=== PATIENT | female | born 1945 | race Caucasian/White ===

== ENCOUNTER 2018-06-09 12:08 | Inpatient (IN) ==
[2018-06-09] MEDS ORDERED: Piperacillin/Tazobactam 3.375 GM in Water for inj. (sterile) 20 ML 20 ML IVP ONE (12:18)
[2018-06-09] MEDS ORDERED: 0.9 % Sodium Chloride 1,000 ML IVC ONE (12:18)
[2018-06-09] MEDS ORDERED: methylPREDNISolone 125 MG/2 ML VIAL IVP ONE (12:20)
[2018-06-09] MEDS ORDERED: Ipratropium/Albuterol Neb 3 ML IH ONE (12:20)
--- NOTE | 2018-06-09 12:25 | Emergency Department Note ---
Disposition Clinical Impression: Respiratory distress, Bacteremia, Severe sepsis Pneumonia Qualifiers: Pneumonia type: due to unspecified organism Laterality: unspecified laterality Lung location: unspecified part of lung Qualified Code(s): J18.9 - Pneumonia, unspecified organism COPD (chronic obstructive pulmonary disease) Qualifiers: COPD type: unspecified COPD Qualified Code(s): J44.9 - Chronic obstructive pulmonary disease, unspecified Disposition: Admitted As Inpatient Condition: Fair Referrals: Aneta Leal MD [Primary Care Provider] - Forms: ED Satisfaction Letter Time of Disposition: 12:27 SOB HPI - General Chief Complaint: ED Shortness of Breath/Dyspnea Stated Complaint: "infection in blood" Time Seen by Provider: 06/09/18 12:17 Source: patient Mode of arrival: ambulatory Limitations: no limitations Nursing Notes Reviewed: Yes Vital Signs Reviewed: Yes - History of Present Illness 73-year-old female with history of COPD, recent diagnosis of pneumonia presents for evaluation of respiratory distress patient symptoms started approximately a week ago. Patient had fevers as well as a productive cough. Patient was evaluated in [place] and was told she had pneumonia. Patient was placed on Levaquin. Patient was instructed to return as she had positive blood cultures. Patient states he typically wears 2 L nasal cannula but has increased to 3. Patient was hypoxic with 3 L nasal cannula triage. Denies any chest pain. Denies any abdominal pain. Nausea or vomiting. Denies any history of steroid dependence. Patient does state she has a mass in her lung but is no official diagnosis of lung malignancy. - Related Data Home Medications Medication Instructions Recorded Confirmed Albuterol Sulfate [Proair 2 puff IH 1-2XD PRN 10/24/15 06/09/18 Respiclick] Fexofenadine/Pseudoephedrine 1 each PO DAILY 04/04/16 06/09/18 [Lay-D 12 Hour Tablet] Oxygen [Oxygen] 2 l IH DAILY 04/04/16 06/09/18 Aspirin 325 mg PO DAILY 10/26/16 06/09/18 Calcium Carbonate/Vitamin D3 1 each PO BID 10/26/16 06/09/18 [Calcium 500 + Vit D Caplet] [place]-3/Dha/Epa/Fish Oil [Fish Oil 1,000 mg PO DAILY 10/26/16 06/09/18 1,000 mg Softgel] Tiotropium [place] [Spiriva] 1 cap PO DAILY 10/26/16 06/09/18 Vitamin E 1,000 unit PO DAILY 10/26/16 06/09/18 Cetirizine HCl [Zyrtec] 10 mg PO DAILY 06/09/18 06/09/18 Fluticasone/Salmeterol [Advair 1 puff IH BID 06/09/18 06/09/18 500-50 Diskus] Omeprazole [PriLOSEC] 20 mg PO DAILY 06/09/18 06/09/18 Roflumilast [Daliresp] 500 mcg PO DAILY 06/09/18 06/09/18 Simvastatin [Zocor] 10 mg PO QPM 06/09/18 06/09/18 Previous Rx's Medication Instructions Recorded Levofloxacin [Levaquin] 750 mg PO DAILY #7 tablet 06/05/18 Allergies Allergy/AdvReac Type Severity Reaction Status Date / Time No Known Allergies Allergy Verified 10/26/16 11:04 All systems ED: reviewed and negative except as stated. 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 - Social History Smoking Status: Former smoker Smokeless Tobacco Status: No Alcohol use: Reports: none Drug use: Reports: none Physical Exam - General Limitations: no limitations General appearance: alert, in distress - Head Head exam: atraumatic, normocephalic, normal inspection - Eye Eye exam: Present: normal appearance, PERRL, EOMI - ENT ENT exam: normal exam, mucous membranes moist - Neck Neck exam: Present: normal inspection - Chest Chest inspection: Present: normal inspection, symmetric chest wall rise - Respiratory Respiratory exam: Present: respiratory distress, accessory muscle use, prolonged expiratory phase, other (Diffusely diminished) - Cardiovascular Cardiovascular exam: Present: regular rate, normal rhythm. Absent: systolic murmur - Abdominal Exam Abdominal exam: Present: soft, Non-Tender - Extremities Exam Extremities exam: Present: normal inspection. Absent: pedal edema - Back Exam Back exam: Present: normal inspection - Neurological Exam Neurological exam: Present: alert, oriented X3, CN II-XII intact - Skin Skin exam: Present: warm, dry, intact, normal color Course Course Narrative: Patient seen and examined. Patient does have a history of MRSA bacteremia diagnosed from [place]. Patient appears to be in moderate distress. BiPAP initially placed as the patient was tachypnea, accessory muscle use. Patient will get sepsis evaluation. Empiric antibiotics with Vanc Zosyn initiated. Disposition admission. - Reevaluation(s) Reevaluation #1: Patient's resting comfortably. Patient's BiPAP setting of 35% and 12/6. Time: 13:20 Reevaluation #2: Repeat exam shows better aeration. Patient was updated on plan of care. Family states that she would not want intubation if her breathing were to worsen. Time: 13:57 Vital Signs Temperature 97.7 F 06/09/18 12:13 Pulse Rate 113 06/09/18 12:13 Respiratory Rate 20 06/09/18 12:13 Blood Pressure 122/58 06/09/18 12:13 O2 Sat by Pulse Oximetry 66 06/09/18 12:13 Temperature 97.7 F 06/09/18 12:22 Pulse Rate 102 06/09/18 13:30 Respiratory Rate 19 06/09/18 13:30 Blood Pressure 120/64 06/09/18 13:30 O2 Sat by Pulse Oximetry 99 06/09/18 13:30 Oxygen Delivery Oxygen Delivery Bipap Shortness of Breath/Dyspnea - [facility] Narrative Medical decision making narrative: Patient presented in respiratory distress. BiPAP placed on the patient due to her tachypnea. Patient does trigger surgical criteria. Source likely in the lungs. Patient was diagnosed with bacteremia and pneumonia. Illness onset has been over the past week. Patient does have a significant leukocytosis will mail a lactate of 3.1. In the setting of elevated troponin. No ST elevation. Patient was given an aspirin to the elevated troponin. Patient did have MRSA bacteremia. Patient was started on Vanco and Zosyn in the ED. Patient's been resting comfortably on BiPAP. No signs of decompensation. Patient was given IV fluid hydration. Patient does have a leukocytosis consistent with illness described. On repeat evaluation the patient does appear to have good capillary refill. Lungs appeared to have improved after the aerosols and steroids. - Lab Data Lab results reviewed: Yes I reviewed the patient's lab results. Result diagrams: 06/09/18 12:22 06/09/18 12:22 Lab Results 06/09/18 06/09/18 06/09/18 Range/Units 12:22 12:22 12:22 WBC 32.8 H* (4.3-11.1) K/mcL RBC 3.93 (3.82-4.97) M/mcL Hgb 11.5 (11.5-15.4) g/dL Hct 37.0 (35.3-44.9) % MCV 94.1 (83.0-100.0) fL MCH 29.3 (28.0-33.3) pg MCHC 31.1 L (31.6-35.5) g/dL RDW 13.6 (11.5-14.5) % Plt Count 375 (140-400) K/mcL MPV 9.9 (9.4-12.4) fL Seg Neutrophils % 56.0 % Band Neutrophils % 38.0 H (0-4) % Monocytes % 2.0 % Metamyelocytes % 4.0 H (0) % Neutrophils # 30.8 H (1.6-8.9) K/mcL Lymphocytes # 1.0 (0.6-4.6) K/mcL Monocytes # 0.7 (0.0-1.3) K/mcL Nucleated RBCs/100 WBC 0.2 H (0) /100 WBC Platelet Estimate Normal (Normal) PT 13.9 H (9.4-12.1) Seconds INR 1.2 APTT 24.9 L (26.0-36.0) Seconds Sample Site ABG pH (7.32-7.45) pH Units ABG pCO2 (35-45) mmHg ABG pO2 (85-104) mmHg ABG HCO3 (21-27) mEq/L ABG Total CO2 (20-26) mEq/L ABG O2 Saturation (95-98) % ABG Base Excess (-2 to 3) mEq/L Avery Test O2 Delivery Device Inspired O2 (1-15=lpm [id number]=%) Sodium 136 (136-145) mEq/L Potassium 2.6 L (3.5-5.1) mEq/L Chloride 85 L (98-107) mEq/L Carbon Dioxide 43 H* (23-29) mEq/L Creatinine 0.39 L (0.60-1.20) mg/dL Est GFR ( Amer) > 60 (> 60) Est GFR (Non-Af Amer) > 60 (> 60) Glucose 112 H (70-105) mg/dL Lactic Acid (0.5-2.2) mmol/L Calcium 9.0 (8.6-10.3) mg/dL Phosphorus 2.2 L (2.7-4.5) mg/dL Magnesium 1.9 (1.6-2.6) mg/dL Total Bilirubin 0.3 (0.3-1.0) mg/dL Direct Bilirubin 0.2 (0.0-0.2) mg/dL Indirect Bilirubin 0.1 (0.0-1.2) mg/dL AST 19 (13-39) Units/L ALT 19 (7-52) Units/L Alkaline Phosphatase 119 H (34-104) Units/L Troponin I 0.09 H* (< 0.04) ng/mL Serum Total Protein 6.7 (6.4-8.9) g/dL Albumin 2.9 L (3.5-5.7) g/dL Globulin 3.8 H (2.4-3.5) g/dL Albumin/Globulin Ratio 0.8 L (1.1-2.2) 06/09/18 06/09/18 Range/Units 12:22 12:38 WBC (4.3-11.1) K/mcL RBC (3.82-4.97) M/mcL Hgb (11.5-15.4) g/dL Hct (35.3-44.9) % MCV (83.0-100.0) fL MCH (28.0-33.3) pg MCHC (31.6-35.5) g/dL RDW (11.5-14.5) % Plt Count (140-400) K/mcL MPV (9.4-12.4) fL Seg Neutrophils % % Band Neutrophils % (0-4) % Monocytes % % Metamyelocytes % (0) % Neutrophils # (1.6-8.9) K/mcL Lymphocytes # (0.6-4.6) K/mcL Monocytes # (0.0-1.3) K/mcL Nucleated RBCs/100 WBC (0) /100 WBC Platelet Estimate (Normal) PT (9.4-12.1) Seconds INR APTT (26.0-36.0) Seconds Sample Site R Radial ABG pH 7.46 H (7.32-7.45) pH Units ABG pCO2 63 H (35-45) mmHg ABG pO2 127 H (85-104) mmHg ABG HCO3 45 H (21-27) mEq/L ABG Total CO2 47 H (20-26) mEq/L ABG O2 Saturation 99 H (95-98) % ABG Base Excess 18 H (-2 to 3) mEq/L Avery Test Positive O2 Delivery Device BiPAP Inspired O2 35.0 (1-15=lpm [id number]=%) Sodium (136-145) mEq/L Potassium (3.5-5.1) mEq/L Chloride (98-107) mEq/L Carbon Dioxide (23-29) mEq/L Creatinine (0.60-1.20) mg/dL Est GFR ( Amer) (> 60) Est GFR (Non-Af Amer) (> 60) Glucose (70-105) mg/dL Lactic Acid 3.1 H (0.5-2.2) mmol/L Calcium (8.6-10.3) mg/dL Phosphorus (2.7-4.5) mg/dL Magnesium (1.6-2.6) mg/dL Total Bilirubin (0.3-1.0) mg/dL Direct Bilirubin (0.0-0.2) mg/dL Indirect Bilirubin (0.0-1.2) mg/dL AST (13-39) Units/L ALT (7-52) Units/L Alkaline Phosphatase (34-104) Units/L Troponin I (< 0.04) ng/mL Serum Total Protein (6.4-8.9) g/dL Albumin (3.5-5.7) g/dL Globulin (2.4-3.5) g/dL Albumin/Globulin Ratio (1.1-2.2) - Radiology Data Radiology results reviewed: Yes I reviewed the patient's radiology results. Chest X-Ray 06/09/18 12:18 IMPRESSION: 1. Worsening bilateral lung infiltrates, concerning for multifocal pneumonia. There is a larger cavitary infiltrate in the right midlung field. 2. Pulmonary vascular congestion. D/ / Steven Almaraz MD / Steven Almaraz MD Interpreting Provider: Steven Almaraz MD - EKG Data EKG attestation: Yes I reviewed and interpreted this EKG. EKG shows normal: Reports: sinus rhythm Rate: Reports: tachycardia Rhythm: Reports: NSR [place]/QRS: Reports: normal, RBBB Interpretation: Reports: no acute changes, nonspecific ST-T wave changes S.B.Lyn - [place] Situation: Demographics Background: Presenting Complaint Assessment: Vital Signs, Course and respsone to treatment, Patient/Family Expectation Recommendation: Barrier(s) to disposition, Recommendation based on pending studies, treatments, or consults S.B.ASagar Report Given to: Dr. Kaci Shaikh Repor Time: 14:13
[2018-06-09 12:42] LABS: ABG Base Excess 18 mEq/L (-2 to 3); ABG HCO3 45 mEq/L (21-27); ABG Oxygen Saturation 99 % (95-98); ABG PCO2 63 mmHg (35-45); ABG PH 7.46 pH Units (7.32-7.45); ABG PO2 127 mmHg (85-104); ABG TCO2 47 mEq/L (20-26)
[2018-06-09 12:47] LABS: Nucleated Red Blood Cells 0.2 /100 WBC (0)
[2018-06-09 12:49] LABS: Hemoglobin 11.5 g/dL (11.5-15.4); Mean Corpuscular HGB Conc 31.1 g/dL (31.6-35.5); Mean Corpuscular Hemoglobin 29.3 pg (28.0-33.3); Mean Corpuscular Volume 94.1 fL (83.0-100.0); Mean Platelet Volume 9.9 fL (9.4-12.4); Platelet Count 375 K/mcL (140-400); Red Blood Count 3.93 M/mcL (3.82-4.97); Red Cell Distribution Width 13.6 % (11.5-14.5)
[2018-06-09 12:55] LABS: INR 1.2; Prothrombin Time 13.9 Seconds (9.4-12.1)
[2018-06-09 12:58] LABS: Activated Partial Thrombo Time 24.9 Seconds (26.0-36.0)
[2018-06-09] MEDS ORDERED: Piperacillin/Tazobactam 3.375 GM in 0.9 % Sodium Chloride Mini Bag 100 ML IVP ONE (13:00)
[2018-06-09] MEDS ORDERED: 0.9 % Sodium Chloride 500 ML IVC ONE (13:04)
--- NOTE | 2018-06-09 13:08 | Emergency Department Note ---
Disposition Clinical Impression: Respiratory distress, Bacteremia Pneumonia Qualifiers: Pneumonia type: due to unspecified organism Laterality: unspecified laterality Lung location: unspecified part of lung Qualified Code(s): J18.9 - Pneumonia, unspecified organism COPD (chronic obstructive pulmonary disease) Qualifiers: COPD type: unspecified COPD Qualified Code(s): J44.9 - Chronic obstructive pulmonary disease, unspecified Disposition: Admitted As Inpatient Condition: Fair Forms: ED Satisfaction Letter General Adult HPI - General Chief complaint: ED Shortness of Breath/Dyspnea Stated complaint: "infection in blood" Time Seen by Provider: 06/09/18 12:17 Source: patient Mode of arrival: ambulatory Limitations: no limitations - History of Present Illness Pain Scale: 0 - Related Data Home Medications Medication Instructions Recorded Confirmed Albuterol Sulfate [Proair 2 puff IH 1-2XD PRN 10/24/15 10/26/16 Respiclick] Fluticasone/Salmeterol [Advair 2 puff IH BID PRN 10/24/15 10/26/16 100-50 Diskus] Fexofenadine/Pseudoephedrine 1 each PO DAILY 04/04/16 10/26/16 [Lay-D 12 Hour Tablet] Oxygen [Oxygen] 2 l IH DAILY 04/04/16 10/26/16 Aspirin 325 mg PO DAILY 10/26/16 10/26/16 Calcium Carbonate/Vitamin D3 1 each PO BID 10/26/16 10/26/16 [Calcium 500 + Vit D Caplet] [place]-3/Dha/Epa/Fish Oil [Fish Oil 1,000 mg PO DAILY 10/26/16 10/26/16 1,000 mg Softgel] Tiotropium [place] [Spiriva] 1 cap PO DAILY 10/26/16 10/26/16 Vitamin E 1,000 unit PO DAILY 10/26/16 10/26/16 raNITIdine HCl [Zantac] 150 mg PO HS 10/26/16 10/26/16 Previous Rx's Medication Instructions Recorded Levofloxacin [Levaquin] 750 mg PO DAILY #7 tablet 06/05/18 Allergies Allergy/AdvReac Type Severity Reaction Status Date / Time No Known Allergies Allergy Verified 10/26/16 11:04 Constitutional: Reports: fever Cardiovascular: Denies: chest pain Respiratory: Reports: cough, dyspnea, sputum production Gastrointestinal: Denies: abdominal pain, nausea, vomiting Past Medical History - Past Medical History Medical history: Reports: COPD, hypertension Surgical history: Reports: cholecystectomy, hysterectomy Psychiatric history: Reports: no psych history 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 - Social History Smoking Status: Former smoker Smokeless Tobacco Status: No Alcohol use: Reports: none Drug use: Reports: none Physical Exam - General Limitations: no limitations General appearance: alert, in distress Course Vital Signs Temperature 97.7 F 06/09/18 12:13 Pulse Rate 113 06/09/18 12:13 Respiratory Rate 20 06/09/18 12:13 Blood Pressure 122/58 06/09/18 12:13 O2 Sat by Pulse Oximetry 66 06/09/18 12:13 Temperature 97.7 F 06/09/18 12:22 Pulse Rate 108 06/09/18 12:50 Respiratory Rate 22 06/09/18 12:50 Blood Pressure 124/70 06/09/18 12:55 O2 Sat by Pulse Oximetry 99 06/09/18 12:50 Oxygen Delivery Oxygen Delivery Bipap Medical Decision Making - Lab Data Result diagrams: 06/09/18 12:22 Lab Results 06/09/18 06/09/18 06/09/18 Range/Units 12:22 12:22 12:22 WBC 32.8 H* (4.3-11.1) K/mcL RBC 3.93 (3.82-4.97) M/mcL Hgb 11.5 (11.5-15.4) g/dL Hct 37.0 (35.3-44.9) % MCV 94.1 (83.0-100.0) fL MCH 29.3 (28.0-33.3) pg MCHC 31.1 L (31.6-35.5) g/dL RDW 13.6 (11.5-14.5) % Plt Count 375 (140-400) K/mcL MPV 9.9 (9.4-12.4) fL Nucleated RBCs/100 WBC 0.2 H (0) /100 WBC PT 13.9 H (9.4-12.1) Seconds INR 1.2 APTT 24.9 L (26.0-36.0) Seconds Sample Site ABG pH (7.32-7.45) pH Units ABG pCO2 (35-45) mmHg ABG pO2 (85-104) mmHg ABG HCO3 (21-27) mEq/L ABG Total CO2 (20-26) mEq/L ABG O2 Saturation (95-98) % ABG Base Excess (-2 to 3) mEq/L Avery Test O2 Delivery Device Inspired O2 (1-15=lpm [id number]=%) Lactic Acid 3.1 H (0.5-2.2) mmol/L 06/09/18 Range/Units 12:38 WBC (4.3-11.1) K/mcL RBC (3.82-4.97) M/mcL Hgb (11.5-15.4) g/dL Hct (35.3-44.9) % MCV (83.0-100.0) fL MCH (28.0-33.3) pg MCHC (31.6-35.5) g/dL RDW (11.5-14.5) % Plt Count (140-400) K/mcL MPV (9.4-12.4) fL Nucleated RBCs/100 WBC (0) /100 WBC PT (9.4-12.1) Seconds INR APTT (26.0-36.0) Seconds Sample Site R Radial ABG pH 7.46 H (7.32-7.45) pH Units ABG pCO2 63 H (35-45) mmHg ABG pO2 127 H (85-104) mmHg ABG HCO3 45 H (21-27) mEq/L ABG Total CO2 47 H (20-26) mEq/L ABG O2 Saturation 99 H (95-98) % ABG Base Excess 18 H (-2 to 3) mEq/L Avery Test Positive O2 Delivery Device BiPAP Inspired O2 35.0 (1-15=lpm [id number]=%) Lactic Acid (0.5-2.2) mmol/L Attestation Statement - Attestation Attestation: I examined this patient and my medical decision-making was reviewed with the Resident Physician. I agree with the documented findings, disposition and treatment plan as described except to the extent set forth below. 73 year old veronica presents to the ED to the critical care bay for pneumoina and was discharged ome from ED previously with jasmyn tapia and then maria luisa yao to have come back to the ED for MRSA infection in her blood cultures. It appears that she is hypoxic and has a history of COPD and wears 2LCN continuaously and was hypoxic to 66% and we have placed her on bipap and started SEPSIS protocol with vanc/zosyn therapy with a WBC of 36 and a lactic acid of 3.1. WE will admit to medicine
[2018-06-09 13:15] LABS: Alanine Aminotransferase 19 Units/L (7-52); Albumin 2.9 g/dL (3.5-5.7); Albumin/Globulin Ratio 0.8 (1.1-2.2); Alkaline Phosphatase 119 Units/L (34-104); Aspartate Amino Transferase 19 Units/L (13-39); Bilirubin,Direct 0.2 mg/dL (0.0-0.2); Bilirubin,Indirect 0.1 mg/dL (0.0-1.2); Bilirubin,Total 0.3 mg/dL (0.3-1.0); Carbon Dioxide 43 mEq/L (23-29); Chloride 85 mEq/L (98-107); Globulin 3.8 g/dL (2.4-3.5); Glucose 112 mg/dL (70-105); Magnesium 1.9 mg/dL (1.6-2.6); Phosphorous 2.2 mg/dL (2.7-4.5); Potassium 2.6 mEq/L (3.5-5.1); Sodium 136 mEq/L (136-145); Total Protein 6.7 g/dL (6.4-8.9); Troponin I 0.09 ng/mL (< 0.04); eGFR For Non-African Americans > 60 (> 60)
[2018-06-09] MEDS ORDERED: Aspirin 325 MG TABLET PO ONE (13:19)
[2018-06-09] MEDS ORDERED: Potassium Chloride 40 MEQ, Lidocaine 1% 2 ML in D5% in Water 500 ML IVPB ONE (13:23)
[2018-06-09] MEDS ORDERED: Potassium Chloride Elixir 20 MEQ/15 ML UDC PO ONE (13:23)
[2018-06-09 13:45] LABS: Monocytes # 0.7 K/mcL (0.0-1.3); Neutrophils # 30.8 K/mcL (1.6-8.9); Platelet Estimate Normal (Normal)
[2018-06-09] MEDS: 0.9 % Sodium Chloride 1,000 ML IVC SCH (14:45)
[2018-06-09] MEDS ORDERED: Naloxone 0.4 MG/ML INJ IVP PRN (14:52)
[2018-06-09 15:45] LABS: BUN/Creatinine Ratio 23 (6-26); Blood Urea Nitrogen 9 mg/dL (8-23); Osmolality,Calculated 281 (280-300)
--- NOTE | 2018-06-09 15:52 | Internal Med History&Physical ---
Date of Encounter: 06/09/18 Time of Encounter: 14:20 Internal Medicine - H&P: HPI Chief complaint: Was asked to come to ER History of present illness: Ms. Alvares is a 73 year old female with past medical history of COPD, hypertension who was seen on 06/05/18 for shortness of breath and was diagnosed to have pneumonia based on chest x-ray and CTA and was discharged on Levaquin. Patient's blood culture were drawn at the time of each came positive for MRSA and patient was called back to ER. Patient has long-standing COPD and uses oxygen at home but does not use a BiPAP/CPAP. She continued to have difficulty breathing for the past 2-3 days. She felt febrile but did not take her temperature and felt chills. Denies any abdominal pain, bowel or urinary complaints. Denies any previous history of antibiotic use recently in the past 3-6 month. Denies having any surgeries recently. Denies any history of prosthesis. Past Med Surg Social Fam HX - Past Medical History Medical history: COPD, hypertension Additional medical history: mass in right lung, hyponatremia, hypokalemia, RLL PN, vitamin D deficiency, OA, carpal tunnel, oxygen dependent Psychiatric history: no psych history - Past Surgical History Surgical History: cholecystectomy, hysterectomy Additional surgical history: BLADDER TUCK, HERNIA REPAIR, left arm - Social History Smoking Status: Former smoker Smokeless Tobacco Status: No Alcohol use: none Drug use: none - Family History Father Hx Family Respiratory Disorders: No Internal Medicine - H&P: Meds Albuterol Sulfate [Proair Respiclick] 2 puff IH 1-2XD PRN 10/24/15 [History] Fexofenadine/Pseudoephedrine [Lay-D 12 Hour Tablet] 1 each PO DAILY [History] Oxygen [Oxygen] 2 l IH DAILY 04/04/16 [History] Aspirin 325 mg PO DAILY 10/26/16 [History] Calcium Carbonate/Vitamin D3 [Calcium 500 + Vit D Caplet] 1 each PO BID [History] [place]-3/Dha/Epa/Fish Oil [Fish Oil 1,000 mg Softgel] 1,000 mg PO DAILY 10/26/16 [History] Tiotropium [place] [Spiriva] 1 cap PO DAILY 10/26/16 [History] Vitamin E 1,000 unit PO DAILY 10/26/16 [History] Levofloxacin [Levaquin] 750 mg PO DAILY #7 tablet 06/05/18 [Rx] Cetirizine HCl [Zyrtec] 10 mg PO DAILY 06/09/18 [History] Fluticasone/Salmeterol [Advair 500-50 Diskus] 1 puff IH BID 06/09/18 [History] Omeprazole [PriLOSEC] 20 mg PO DAILY 06/09/18 [History] Roflumilast [Daliresp] 500 mcg PO DAILY 06/09/18 [History] Simvastatin [Zocor] 10 mg PO QPM 06/09/18 [History] 3 Allergy/AdvReac Type Severity Reaction Status Date / Time No Known Allergies Allergy Verified 10/26/16 11:04 All Systems PM: A 10-system review of systems was performed and is negative for pertinent findings except as documented above in the HPI. - Constitutional Vitals: Temp Pulse Resp BP Pulse Ox 97.7 F 102 25 118/72 99 06/09/18 12:22 06/09/18 15:04 06/09/18 15:04 06/09/18 15:04 06/09/18 15:04 General appearance: Present: mild distress, A&O X 3 Exam: Const: Vital signs listed above. In mild acute distress. Alert and oriented x 3. No mood disorders noted, calm affect. On bipap, alert and awake. Eyes: Sclera white, conjunctiva clear, lids are without lag. PERRLA. Pupils and irises are equal and round without defect. ENT: TMs intact and clear, normal canals, grossly normal hearing. Oropharanx clear and moist without erythema. Gums pink, good dentition. Lymph/Neck: No masses, thyromegaly, or abnormal cervical notes. No bruit. Tracheal midline. Cardio: RRR, tachycardic, Normal S1, S2 w/o murmurs, rubs or gallops. Skin warm and dry. No peripheral edema. Respiratory: On bipap, air entry bilaterally. occasional rhonchi bilaterally. Difficult auscultation given on bipap. non-tender to palpitation. Musculo: No deformity or scoliosis noted. No endy gait disturbance noted. No cyanosis or edema. Pulses normal in all 4 extremities. No atrophy or abnormal movements. Appropriate muscle strength bilaterally. Neurologic: No focal deficits, cranial nerves II-XII grossly intact with normal sensation, reflexes, coordination, muscle strength and tone. GI/Abdomen: Soft, non tender, non distended, no hepatosplemomegaly, normal bowel sounds, no masses noted. Skin: No rashes or ulcers noted Internal Med - H&P Results - Labs CBC & Chem 7: 06/09/18 12:22 06/09/18 12:22 - ABG Interpretation Interpretation: respiratory alkalosis, metabolic acidosis - Assessment and plan (1) Sepsis Current Visit: Yes Status: Acute Assessment and plan: Sepsis likely secondary to pneumonia - CXR with cavitory lesion. MRSA bacteremia. Lactate 3.1. - s/p 1.5 L IVF and Vancomycin and Zosyn. solumedrol 125 and 40 meq of potassium. - Continue with IVF NS at 125 cc, Vancomycin, zosyn, f/u blood cultures. f/u lactate. - ID consulted. Qualifiers: Qualified Code(s): A41.02 - Sepsis due to Methicillin resistant Staphylococcus aureus (2) Bacteremia Current Visit: Yes Status: Acute Assessment and plan: as above (3) COPD (chronic obstructive pulmonary disease) Current Visit: Yes Status: Acute Assessment and plan: - continue duonebs, symbicort and spiriva - C/w Bipap. Qualifiers: COPD type: unspecified COPD Qualified Code(s): J44.9 - Chronic obstructive pulmonary disease, unspecified (4) Pneumonia Current Visit: Yes Status: Acute Assessment and plan: as above Qualifiers: Pneumonia type: due to unspecified organism Laterality: unspecified laterality Lung location: unspecified part of lung Qualified Code(s): J18.9 - Pneumonia, unspecified organism (5) Respiratory distress Current Visit: Yes Status: Acute Assessment and plan: as above (6) Elevated troponin Current Visit: Yes Status: Acute Assessment and plan: - likely from demand - Will trend until downtrending. (7) Hypokalemia Current Visit: Yes Status: Acute Assessment and plan: - s/p 40 meq IV potassium - will give 80 meq oral. - Monitor for now. - Time Spent With Patient Total time spent is greater than 50% in coordination of care (as documented) at patient's floor/unit and/or counseling patient:
[2018-06-09] MEDS ORDERED: Ipratropium/Albuterol Neb 3 ML IH SCH (16:00)
[2018-06-09 19:59] LABS: ABG Base Excess 11 mEq/L (-2 to 3); ABG HCO3 39 mEq/L (21-27); ABG Oxygen Saturation 95 % (95-98); ABG PCO2 64 mmHg (35-45); ABG PH 7.39 pH Units (7.32-7.45); ABG PO2 81 mmHg (85-104); ABG TCO2 41 mEq/L (20-26)
[2018-06-09] MEDS: Acetaminophen 325 MG TABLET PO PRN (20:14)
[2018-06-09] MEDS: Piperacillin/Tazobactam 3.375 GM in 0.9 % Sodium Chloride Mini Bag 100 ML IVPB SCH (20:18)
[2018-06-09] MEDS: Ipratropium/Albuterol Neb 3 ML IH SCH (20:30)
[2018-06-09] MEDS ORDERED: Budesonide/Formoterol 160/4.5 1 PUFF INH IH SCH (22:00)
[2018-06-10] MEDS: 0.9 % Sodium Chloride 1,000 ML IVC SCH ×4 (02:45→21:17)
[2018-06-10] MEDS: Acetaminophen 325 MG TABLET PO PRN ×2 (02:51→09:24)
--- NOTE | 2018-06-10 03:06 | Event Note ---
Date of Encounter: 06/10/18 Time of Encounter: 03:02 I was paged to beside by RN when the tele showed concern for A fib. 73 y/o f hx COPD admitted for PNA on IV abx and fluids. Patient was shorts of breath with 92 % on 6L and HR 120s . She denies chest pain, palpitations, dizziness or lightheaded. Admits to past episode of lightheaded and pedal edema. Cardiac was irregularly, irregular and trace pedal edema Lungs, wheeze in left lower lobe. I ordered and signed an stat EKG but due to system failure it was not properly record in system. We preceded with EKG on my order despite tech reminding me of protocol. EKG showed Afib with RVR BP 105/64 Plan : MOHSEN VASC2 score of 3 -continued IVF at 125 - gave lopressor 5mg ; HR 85-105 with SBP 107 - IVF bolus 500 ml- HR remained in 90s to 110 - ABG at 5 am pH 7.3, CO2 77.7 HCO3 38.7 - continued BiPAP - another ABG due at 7am- still waiting on results - consider a second dose of Lopressor
[2018-06-10] MEDS ORDERED: *HR* Metoprolol 5 MG/5 ML VIAL IVP ONE (03:20)
[2018-06-10] MEDS ORDERED: *HR* Metoprolol 5 MG/5 ML VIAL IVP SCH (03:30)
[2018-06-10] MEDS ORDERED: 0.9 % Sodium Chloride 500 ML IVC ONE (03:34)
[2018-06-10] MEDS: Ipratropium/Albuterol Neb 3 ML IH SCH ×4 (03:39→22:16)
[2018-06-10 03:45] LABS: Lymphocytes % 2.2 %; Monocytes % 1.5 %; Red Cell Distribution Width 14.1 % (11.5-14.5)
[2018-06-10 03:46] LABS: Basophils # 0.2 K/mcL (0.0-0.2); Basophils % 0.6 %; Hematocrit 32.4 % (35.3-44.9); Immature Granulocytes % 3.5 % (0-4); Lymphocytes # 0.7 K/mcL (0.6-4.6); Mean Corpuscular HGB Conc 30.9 g/dL (31.6-35.5); Mean Corpuscular Hemoglobin 28.7 pg (28.0-33.3); Mean Corpuscular Volume 93.1 fL (83.0-100.0); Mean Platelet Volume 9.8 fL (9.4-12.4); Monocytes # 0.5 K/mcL (0.0-1.3); Neutrophils # 29.3 K/mcL (1.6-8.9); Nucleated Red Blood Cells 0.2 /100 WBC (0); Platelet Count 348 K/mcL (140-400); Red Blood Count 3.48 M/mcL (3.82-4.97); Segmented Neutrophils % 92.2 %
[2018-06-10 04:09] LABS: Troponin I 0.04 ng/mL (< 0.04)
[2018-06-10 04:10] LABS: BUN/Creatinine Ratio 31 (6-26); Blood Urea Nitrogen 9 mg/dL (8-23); Calcium 8.2 mg/dL (8.6-10.3); Carbon Dioxide 35 mEq/L (23-29); Chloride 100 mEq/L (98-107); Glucose 160 mg/dL (70-105); Osmolality,Calculated 292 (280-300); Potassium 4.1 mEq/L (3.5-5.1); Sodium 140 mEq/L (136-145); eGFR For Non-African Americans > 60 (> 60)
[2018-06-10 04:24] LABS: Platelet Estimate Normal (Normal)
[2018-06-10 04:25] LABS: Hypochromasia Present (Not Present)
[2018-06-10 04:48] LABS: ABG Base Excess 10 mEq/L (-2 to 3); ABG HCO3 39 mEq/L (21-27); ABG Oxygen Saturation 98 % (95-98); ABG PCO2 78 mmHg (35-45); ABG PH 7.31 pH Units (7.32-7.45); ABG PO2 125 mmHg (85-104); ABG TCO2 41 mEq/L (20-26)
[2018-06-10] MEDS ORDERED: *HR* Enoxaparin 40 MG/0.4 ML SYRINGE SQ SCH (06:00)
[2018-06-10 06:45] LABS: Thyroid Stimulating Hormone 0.35 mcIU/mL (0.340-5.600)
[2018-06-10] MEDS ORDERED: (Roflumilast [Daliresp] 500 MCG) PO SCH (09:00)
[2018-06-10] MEDS: Loratadine 10 MG TABLET PO SCH ×2 (09:08→09:09)
[2018-06-10] MEDS: Cholecalciferol (D-3) 1,000 UNIT TABLET PO SCH (09:09)
[2018-06-10] MEDS: Piperacillin/Tazobactam 3.375 GM in 0.9 % Sodium Chloride Mini Bag 100 ML IVPB SCH ×2 (09:12→17:53)
[2018-06-10] MEDS ORDERED: Tiotropium 18 MCG inhalation IH SCH (10:00)
[2018-06-10] MEDS: Budesonide/Formoterol 160/4.5 1 PUFF INH IH SCH ×2 (10:19→22:16)
[2018-06-10] MEDS ORDERED: *HR* Heparin 5,000 UNIT/ML VIAL IVP PRN ×4 (11:57→13:55)
[2018-06-10] MEDS ORDERED: *HR* Heparin 5,000 UNIT/ML VIAL IVP ONE ×2 (11:57→13:55)
[2018-06-10] MEDS ORDERED: Heparin 25,000 UNIT/500 ML D5W 25,000 UNIT/500 ML BAG IVC SCH (12:00)
--- NOTE | 2018-06-10 12:02 | Internal Med Progress Note ---
Hospitalist Progress Note - Encounter Date of Encounter: 06/10/18 Time of Encounter: 12:00 - Subjective Interval History: Patient seen and examined at bedside. Overnight the patient developed atrial fibrillation with rapid ventricular response. Patient was also put on BiPAP briefly due to respiratory distress. Patient states that she has never had atrial fibrillation. The patient states that she was very confused overnight however feels much better today. Patient denies any confusion currently. Patient admits to shortness of breath with productive cough however she states this is improving. Patient denies any chest pain, nausea, vomiting, diarrhea. Patient states that she has never had any major GI bleeding or any bleeding that she is aware of. Patient does admit to long-standing history of heartburn and now states that she is having difficulty swallowing solids. I discussed atrial fibrillation with the patient and after explaining anticoagulation necessity the patient agrees to starting anticoagulation for now and will check pricing of xarelto. - Exam Vitals: Temp Pulse Resp BP Pulse Ox 99.0 F 99 18 123/75 96 06/10/18 07:54 06/10/18 07:54 06/10/18 07:54 06/10/18 07:54 06/10/18 09:00 Exam: Constitutional: No acute distress, Alert Psych: AAO x 3 HEENT: NCAT, EOMI Neck: supple, no JVD Cardio: regular rate and rhythm, tachycardic Resp: coarse bs throughtout with occasional rhonchi RLL Abd: soft, non tender/non distended, positive bowel sounds, no gaurding/reboud/ ridgitity Extremities: no clubbing/cyanosis/edema appreciated Neuro: no focal deficits appreciated - Assessment and Plan (1) Acute and chronic respiratory failure with hypoxia Current Visit: Yes Status: Acute Assessment and Plan: Patient has acute on chronic respiratory failure with hypoxia and hypercapnia -Required BiPAP overnight now on high flow nasal cannula -Mentation improved -Likely secondary to pneumonia -Maintain pulse ox symmetry between 88-92% -BiPAP when necessary -ABG is noted from overnight; latest ABG with increased carbon dioxide however patient now with improved mentation and improved respiratory status; will not repeat currently unless clinical situation indicates (2) Bacteremia Current Visit: Yes Status: Acute Assessment and Plan: -MRSA in blood culture on 06/05 -repeat cultures neagative to date -echo pending -on vanco/zosyn -ID consulted (3) Sepsis Current Visit: Yes Status: Acute Assessment and Plan: Severe sepsis likely secondary to pneumonia with cardiac and respiratory end organ damage - CXR with cavitory lesion. - MRSA bacteremia. - Lactate 3.1 on admission; now normal - s/p 1.5 L IVF and Vancomycin and Zosyn. solumedrol 125 and 40 meq of potassium. - Continue with IVF NS at 125 cc, Vancomycin, zosyn, - f/u blood cultures - ID consulted - obtain sputum sample -repeat ct chest (4) Pneumonia Current Visit: Yes Status: Acute Assessment and Plan: as above (5) COPD (chronic obstructive pulmonary disease) Current Visit: Yes Status: Acute Assessment and Plan: - continue duonebs, symbicort and spiriva - C/w Bipap prn (6) Elevated troponin Current Visit: Yes Status: Acute Assessment and Plan: - likely from demand - downtrending (7) Hypokalemia Current Visit: Yes Status: Acute Assessment and Plan: - s/p 40 meq IV potassium - will give 80 meq oral. - Monitor for now. (8) New onset a-fib Current Visit: Yes Status: Acute Assessment and Plan: Patient with new onset A. fib with RVR overnight -Currently in sinus rhythm with tachycardia secondary to sepsis -Patient given IV Lopressor overnight -Chadsvasc of 2 -Discussed anticoagulation with patient and is agreeable -We will start heparin drip -We will consult cardiology for evaluation of need of ischemic workup -We will check pricing of xarelto -Start Lopressor 25 twice a day (9) Dysphagia Current Visit: Yes Status: Acute Assessment and Plan: -pt reports dysphasia with solids -consult GI -on ppi DVT Prophylaxis: hep gtt - Summary of Assessment and Plan Summary of Assessment and Plan: Patient improving but remains very high risk for complications and deterioration -Repeat CT of the chest -Consult ID for evaluation of extensive multifocal pneumonia and MRSA bacteremia -Consult GI for dysphagia with GERD -Consult cardiology for new onset A. fib with RVR - Time Spent with Patient Total time spent is greater than 50% in coordination of care (as documented) at patient's floor/unit and/or counseling patient: Greater than 35 minutes Plan of Care Discussed with: patient Internal Medicine: Result - Labs CBC & Chem 7: 06/10/18 03:28 06/10/18 03:28 Labs: Short CBC 06/10/18 Range/Units 03:28 WBC 31.8 H* (4.3-11.1) K/mcL Hgb 10.0 L D (11.5-15.4) g/dL Hct 32.4 L (35.3-44.9) % Plt Count 348 (140-400) K/mcL Neutrophils # 29.3 H (1.6-8.9) K/mcL BMP 06/10/18 03:28 Sodium 140 Potassium 4.1 D Chloride 100 Carbon Dioxide 35 H BUN 9 Creatinine 0.29 L Glucose 160 H Calcium 8.2 L Cardiac Enzymes 06/09/18 06/10/18 06/10/18 Range/Units 18:50 03:28 09:57 Troponin I 0.07 H* 0.04 H* 0.05 H* (< 0.04) ng/mL - ABG Interpretation ABG results: ABG ABG pH 7.31 pH Units (7.32-7.45) L 06/10/18 04:29 ABG pCO2 78 mmHg (35-45) H* 06/10/18 04:29 ABG pO2 125 mmHg (85-104) H 06/10/18 04:29 ABG O2 Saturation 98 % (95-98) 06/10/18 04:29 PT/INR, D-dimer PT 13.9 Seconds (9.4-12.1) H 06/09/18 12:22 Consult Discharge Plan - Plan Referrals: Aneta Leal MD [Primary Care Provider] - (3) Sepsis Qualifiers: Sepsis type: methicillin resistant Staphylococcus aureus Qualified Code(s): A41.02 - Sepsis due to Methicillin resistant Staphylococcus aureus (4) Pneumonia Qualifiers: Pneumonia type: due to unspecified organism Laterality: unspecified laterality Lung location: unspecified part of lung Qualified Code(s): J18.9 - Pneumonia, unspecified organism (5) COPD (chronic obstructive pulmonary disease) Qualifiers: COPD type: unspecified COPD Qualified Code(s): J44.9 - Chronic obstructive pulmonary disease, unspecified (9) Dysphagia Qualifiers: Dysphagia type: unspecified Qualified Code(s): R13.10 - Dysphagia, unspecified
[2018-06-10 12:55] LABS: Mean Platelet Volume 9.6 fL (9.4-12.4)
[2018-06-10 12:56] LABS: Hematocrit 33.5 % (35.3-44.9); Hemoglobin 10.1 g/dL (11.5-15.4); Mean Corpuscular HGB Conc 30.1 g/dL (31.6-35.5); Mean Corpuscular Hemoglobin 28.6 pg (28.0-33.3); Mean Corpuscular Volume 94.9 fL (83.0-100.0); Platelet Count 398 K/mcL (140-400); Red Blood Count 3.53 M/mcL (3.82-4.97); Red Cell Distribution Width 14.5 % (11.5-14.5)
[2018-06-10 13:02] LABS: Heparin anti-factor XA UFH 0.14 IU/mL (0.30-0.70); INR 1.1; Prothrombin Time 12.1 Seconds (9.4-12.1)
--- NOTE | 2018-06-10 13:51 | Infectious Disease Consult ---
Date of Encounter: 06/10/18 Time of Encounter: 13:43 Assessment and Plan (1) Severe sepsis Status: Acute Assessment and plan: The patient had 2 sepsis criteria plus lactic acidosis on admission. Likely secondary to bacteremia and pneumonia. Clinically improved, the white blood cell count worse today-likely secondary to recent steroid administration. Continues to have tachycardia. Afebrile since admission. Blood cultures obtained 06/09/18 are pending 1 set. (2) Bacteremia Status: Acute Assessment and plan: Causative organism: MRSA. Source: Unclear, possibly pneumonia, although less likely. Blood cultures obtained set was positive. Repeat blood culture obtained set is pending. No endocarditis stigmata noted on exam. Complicated due to the presence of hardware in the right upper extremity. The patient has 2 minor modified [place] criteria. Repeat blood cultures 2 sets now. Check rheumatoid factor. Transthoracic echocardiogram. The patient would likely benefit from a HARIS prior to discharge. Continue vancomycin IV. Pharmacy to dose. Vanc trough approximately 15. Duration of treatment depends on the clinical picture. Monitor renal function and for drug toxicity and dose adjust antibiotics. (3) Cavitary lesion of lung Status: Acute Assessment and plan: Location: Right middle lung field. Etiology unclear: Septic emboli versus infectious versus malignancy versus other. Chest x-ray completed 06/09/18 showed a large cavitary infiltrate in the right midlung. No history of TB exposure. The patient is a former smokers, so malignancy is on the differential. Recommend pulmonology to evaluate. The patient would likely benefit from a bronchoscopy. Continue vancomycin IV. Pharmacy to dose. Goal trough approximately 15. Continue Zosyn 3.375 g IV every 8 hours. Duration of treatment depends on the clinical picture. Monitor renal function and for drug toxicity and does adjust antibiotics. (4) Pneumonia Status: Acute Assessment and plan: Location: Bilateral. Causative organism: Unclear. Possibly MRSA, but less likely given the patient' s lack of healthcare exposure. CTA chest completed 06/05/18 showed airspace consolidation in the right lower lobe , likely related to pneumonia as well as a masslike consolidation in the right middle lobe, likely related to pneumonia. Chest x-ray completed 06/09/18 showed worsening bilateral lung infiltrates, concerning for multifocal pneumonia. Repeat CT of the chest pending completion later today. Since sputum for culture if the patient is able to provide an adequate specimen. Check strep pneumococcal and legionella urinary antigens. The patient states that she does sometimes choke when she eats, so aspiration is also a possibility. Recommend speech therapy to evaluate. Continue vancomycin and Zosyn for now. Duration of treatment depends on the clinical picture. Monitor renal function for nephrotoxicity. Qualifiers: Pneumonia type: due to unspecified organism Laterality: unspecified laterality Lung location: unspecified part of lung Qualified Code(s): J18.9 - Pneumonia, unspecified organism (5) Acute and chronic respiratory failure with hypoxia Status: Acute Assessment and plan: Likely secondary to pneumonia and possible cavitary lung lesion. Was noted to be hypoxic with SPO2 of 66% on arrival to the emergency department. Required BiPAP for short period of time, but is currently on high flow nasal cannula. Continue management per the primary and pulmonary teams. (6) Elevated troponin Status: Acute Assessment and plan: Likely demand ischemia from sepsis. Continue to trend. Further workup and management per the primary team. (7) Hypokalemia Status: Resolved Assessment and plan: Likely secondary to poor by mouth intake. Resolved. (8) New onset a-fib Status: Acute Assessment and plan: Likely secondary to sepsis. Consider cardiology consult. (9) Dysphagia Status: Acute Assessment and plan: Etiology unclear. Recommend speech consult to assist for aspiration. Recommend GI to evaluate. Qualifiers: Dysphagia type: unspecified Qualified Code(s): R13.10 - Dysphagia, unspecified (10) COPD (chronic obstructive pulmonary disease) Status: Chronic Qualifiers: COPD type: COPD with acute exacerbation Qualified Code(s): J44.1 - Chronic obstructive pulmonary disease with (acute) exacerbation Infectious Disease HPI - Data of Consult Patient: new to practice Consult date: 06/10/18 Requesting Physician: Declan Clemons MD Primary Care Provider: Aneta Leal MD - Consult Narrative Reason for consult: MRSA bacteremia History of present illness: Ms. Alvares is a 73 year old female with a past medical history of O2-dependent COPD typically requiring O2 at 2LPM per nasal cannula, remote history of smoking , and remote history of ORIF in the [place] about 60 years ago. The patient was admitted to the hospital 06/09/18 for MRSA bacteremia and PNA. We are consulted for further recommendations for PNA and MRSA bacteremia. Briefly, the patient is a 73 year old female with a past medical history as stated above. The patient presented to the ER at the direction of her PCP for bacteremia. The patient had onset of DIPESH with cough and subjective fevers about 10 days ago. She began having hemoptysis last Saturday and was evaluated at [facility] ER on 06/05/18. She had a CTA of the chest that was negative for pulmonary embolism, but did show airspace consolidation in the right lower lobe, likely related to pneumonia. It also showed a 2.6 cm masslike consolidation in the right upper lobe, mildly extending through the marked right minor fissure, likely related to pneumonia, but neoplasm cannot be excluded. There is also noted to be a 5 x 7 mm lung nodule at the left lung apex. She was given a prescription for oral Levaquin and was advised to follow-up with her primary care doctor, which she did on Saturday. On Saturday, she was contacted by the primary care office and advised come to the ER because her blood culture had come back positive for MRSA. Upon arrival to the ER, the patient was tachycardic and hypoxic with an SPO2 of 66% on 2 L nasal cannula. Laboratory studies revealed a white blood cell count of 32,000 with 38% bands. She had lactic acidosis and a positive troponin. Blood cultures were obtained 1 set. She was given Vanco and Zosyn and placed on BiPAP. She had a chest x-ray that showed worsening bilateral infiltrates consistent with multifocal pneumonia and a large cavitary infiltrate in the right midlung as well as pulmonary vascular congestion. She was started on IV antibiotics and admitted to the hospital for further evaluation. Since admission, the patient did go into A. fib RVR overnight. She continues to have tachycardia and some tachypnea. Her troponin has remained elevated. TSH was normal. She had a transthoracic echo that is pending. She is also scheduled get a CT of the chest later today. Her white blood cell count is up to 37,000 with neutrophilic predominance, no bands. Currently, she is on Vanco and Zosyn. We have been asked to evaluate and make further recommendations. During my exam today, the patient endorses the history as stated above. She reports subjective fevers, but denies any chills or rigors. She denies any headache or neck pain. She denies any congestion, earache, or sore throat. She denies any pain in her chest, but does report worsening shortness of breath and a cough productive of dark brown and bloody sputum. She denies any nausea or vomiting, but does report a poor appetite. She does report adequate fluid intake. She denies any abdominal pain, diarrhea, or urinary complaints. She does report mid thoracic back pain that is new for her. She reports that she has generalized aches and pains, but nothing out of ordinary. She does report that she fell yesterday injuring her right foot and ankle, and states they are still sore today. She denies any oral thrush or new skin lesions. She does have hardware in the right upper extremity secondary to a remote history of an ORIF when she was a child. She denies any pacemakers or joint hardware. She does report some dysphagia that is recently new in onset and states she does sometimes choke on her food. The patient lives at home alone. She is retired. She denies any travel outside the [facility]. She is a former smoker and quit smoking about 10-15 years ago. She denies any alcohol or illicit drug use. She denies any known exposure to tuberculosis. She denies ever being incarcerated in the . She denies any chronic infectious diseases. She denies any pet or animal exposures. She denies any recent healthcare exposure except for being in the ER last week. CC: Declan Clemons MD Past Med Surg Social Fam HX - Past Medical History Attestation: Yes The following information was validated with the patient. Source: patient, old records reviewed, nursing notes reviewed Medical history: COPD, hypertension Additional medical history: mass in right lung, hyponatremia, hypokalemia, RLL PN, vitamin D deficiency, OA, carpal tunnel, oxygen dependent Psychiatric history: no psych history - Past Surgical History Surgical History: cholecystectomy, hysterectomy Additional surgical history: BLADDER TUCK, HERNIA REPAIR, left arm - Social History Smoking Status: Former smoker Smokeless Tobacco Status: No Alcohol use: none Drug use: none Occupational status: retired Current living situation: Home - Independent Activity Level: Independent ambulation Recent Out of Country Travel Within the Last 8 Weeks: No Exposure or Possible Exposure to Illness During Travel: No - Family History Father Hx Family Respiratory Disorders: No Infectious Disease-CN:Meds Albuterol Sulfate [Proair Respiclick] 2 puff IH 1-2XD PRN 10/24/15 [History] Fexofenadine/Pseudoephedrine [Lay-D 12 Hour Tablet] 1 each PO DAILY [History] Oxygen [Oxygen] 2 l IH DAILY 04/04/16 [History] Aspirin 325 mg PO DAILY 10/26/16 [History] Calcium Carbonate/Vitamin D3 [Calcium 500 + Vit D Caplet] 1 each PO BID [History] [place]-3/Dha/Epa/Fish Oil [Fish Oil 1,000 mg Softgel] 1,000 mg PO DAILY 10/26/16 [History] Tiotropium [place] [Spiriva] 1 cap PO DAILY 10/26/16 [History] Vitamin E 1,000 unit PO DAILY 10/26/16 [History] Levofloxacin [Levaquin] 750 mg PO DAILY #7 tablet 06/05/18 [Rx] Cetirizine HCl [Zyrtec] 10 mg PO DAILY 06/09/18 [History] Fluticasone/Salmeterol [Advair 500-50 Diskus] 1 puff IH BID 06/09/18 [History] Omeprazole [PriLOSEC] 20 mg PO DAILY 06/09/18 [History] Roflumilast [Daliresp] 500 mcg PO DAILY 06/09/18 [History] Simvastatin [Zocor] 10 mg PO QPM 06/09/18 [History] Rivaroxaban [Xarelto] 20 mg PO DAILY 30 Days #30 tablet 06/11/18 [Rx] 3 Allergy/AdvReac Type Severity Reaction Status Date / Time No Known Allergies Allergy Verified 10/26/16 11:04 All systems: reviewed and no additional remarkable complaints except as stated Exam - Constitutional Vitals: Temp Pulse Resp BP Pulse Ox 97.6 F 102 15 104/65 99 06/10/18 12:00 06/10/18 12:00 06/10/18 12:00 06/10/18 12:00 06/10/18 12:00 General appearance: average body habitus, cooperative, no acute distress - Head Head exam: Present: atraumatic, normal inspection, normocephalic - Eye Eye exam: Present: EOMI, normal appearance, PERRL Pupils: Present: normal accommodation Additional comments: No subconjunctival hemorrhage noted. - ENT ENT exam: Present: mucous membranes moist - Neck Neck exam: Present: normal inspection - Respiratory Respiratory exam: Present: decreased breath sounds (Throughout). Absent: rales , respiratory distress, rhonchi, wheezes - Cardiovascular Cardiovascular exam: Present: irregular rhythm, +S1, +S2, tachycardia - GI/Abdominal GI/Abdominal exam: Present: normal bowel sounds, soft. Absent: distended, tenderness - Extremities Exam Extremities exam: Present: normal inspection. Absent: joint swelling, pedal edema - Back Exam Back exam: Present: normal inspection. Absent: paraspinal tenderness, vertebral tenderness - Neurological Exam Neurological exam: Present: alert, oriented X3, no focal deficits - Psychiatric Psychiatric exam: Present: normal affect, normal mood - Skin Skin exam: Present: dry, intact, normal color, warm Additional comments: No endocarditis stigmata noted. Infectious Disease CN: Results - Labs CBC & Chem 7: 06/11/18 05:24 06/11/18 05:24 Consult Discharge Plan - Plan Referrals: Aneta Leal MD [Primary Care Provider] - Prescriptions: Rivaroxaban [Xarelto] 20 mg PO DAILY 30 Days #30 tablet - Attending Attestation I examined this patient and my medical decision-making was reviewed with the Resident Physician. I agree with the documented findings, disposition and treatment plan as described except to the extent set forth below. This is an addendum to original report dictated by Macarena Gudino CLIENT SERVICE ADMINISTRATOR please refer to Macarena's note for full detail. Patient is 73-year-old woman with O2 dependent COPD with remote history of smoking presented to the hospital with pneumonia and MRSA bacteremia. Patient had a CT of the chest done which shows cavitary lesion with what looks like an abscess. I did speak with the patient at length and I asked her QUESTIONS to see if she had TB exposure. 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 She has never traveled overseas. At this point I think this is pulmonary abscess/pneumonia due to the same organism that is in the blood. For now we will treat this with IV vancomycin. We will check labs and urine antigens. We will probably de-escalate to only vancomycin and stop the Zosyn shortly Await pulmonary recommendations Monitor labs and for drug toxicity
--- NOTE | 2018-06-10 14:12 | Cardiology Consult Note ---
Addendum entered and electronically signed by Jonathan Carmen CNP 06/10/18 14:36 : Patient noted to gain 10 lbs since admit. BLE edema and distended abdomen noted. Continues to have SOB. TTE pending. WIll give lasix IV x 1. Original Note: <Jonathan Carmen - Last Filed: 06/10/18 14:10> Date of Encounter: 06/10/18 Time of Encounter: 14:00 Assessment and Plan (1) New onset a-fib Current Visit: Yes Status: Acute Atrial fibrillation with RVR the setting of PNA and bacteremia. EKG shows atrial fibrillation with RVR, HR 133. HR 105 on my exam. C/o palpitations for the last 5 years. HR improved. Lopressor ordered but not given yet. Increase as needed. TTE pending. Heparin gtt ordered. CHADS VASc 2 for HTN and female. AC with coumadin or NOAC recommended. Noted hospitalist torres checking xarelto. Patient agreeable pending echo. (2) Elevated troponin Current Visit: Yes Status: Acute Mild troponin elevation 0.09, 0.07, 0.04, 0.05. Demand ischemia in the setting of sepsis, afib with RVR. TTE pending. States stress test two years ago that was negative. Denies chest pain. Discussion w patient/family: The assessment and plan as outlined above was discussed with the patient and/or family members who expressed understanding and agreement. All questions were answered. Thank you for involving us in the care of your patient. Please call with any questions. History of Present Illness Consult date: 06/10/18 Requesting physician: Addison Rosas Consult reason: Atrial fibrillation Chief complaint: SOB for three days. History of present illness: Ms. Alvares is a 73 year old female with past medical history of HTN and COPD on home O2 who was diagnosed with PNA 06/05/[address] She was sent home on antibiotics. Blood culture showed MRSA bacteremia and she was called back to the hospital. Last night she developed atrial fibrillation with RVR. She was given IV lopressor. Cardiology consulted for further evaluation. She c/o palpitations for several years. Denies chest pain. Past Med Surg Social Fam HX - Past Medical History Medical history: COPD, hypertension Additional medical history: mass in right lung, hyponatremia, hypokalemia, RLL PN, vitamin D deficiency, OA, carpal tunnel, oxygen dependent Psychiatric history: no psych history - Past Surgical History Surgical History: cholecystectomy, hysterectomy Additional surgical history: BLADDER TUCK, HERNIA REPAIR, left arm - Social History Smoking Status: Former smoker Smokeless Tobacco Status: No Alcohol use: none Drug use: none - Family History Father Hx Family Respiratory Disorders: No Medications and Allergies Albuterol Sulfate [Proair Respiclick] 2 puff IH 1-2XD PRN 10/24/15 [History] Fexofenadine/Pseudoephedrine [Lay-D 12 Hour Tablet] 1 each PO DAILY [History] Oxygen [Oxygen] 2 l IH DAILY 04/04/16 [History] Calcium Carbonate/Vitamin D3 [Calcium 500 + Vit D Caplet] 1 each PO BID [History] [place]-3/Dha/Epa/Fish Oil [Fish Oil 1,000 mg Softgel] 1,000 mg PO DAILY 10/26/16 [History] RX: Aspirin 325 mg PO DAILY 10/26/16 [History] RX: Vitamin E 1,000 unit PO DAILY 10/26/16 [History] Tiotropium [place] [Spiriva] 1 cap PO DAILY 10/26/16 [History] Levofloxacin [Levaquin] 750 mg PO DAILY #7 tablet 06/05/18 [Rx] Cetirizine HCl [Zyrtec] 10 mg PO DAILY 06/09/18 [History] Fluticasone/Salmeterol [Advair 500-50 Diskus] 1 puff IH BID 06/09/18 [History] Omeprazole [PriLOSEC] 20 mg PO DAILY 06/09/18 [History] Roflumilast [Daliresp] 500 mcg PO DAILY 06/09/18 [History] Simvastatin [Zocor] 10 mg PO QPM 06/09/18 [History] 3 Allergy/AdvReac Type Severity Reaction Status Date / Time No Known Allergies Allergy Verified 10/26/16 11:04 All Systems Review: The remainder of the systems were reviewed and are negative Physical Examination Vital Signs, Last 4 Hours Temp Pulse Resp BP Pulse Ox 06/10/18 12:00 97.6 F 102 15 104/65 99 General: Conversant, No Apparent Distress HEENT: Atraumatic, Normocephaly, Mucus Membranes Moist Neck: No JVD, Normal carotid pulses Cardiac: Other (Irregularly irregular) Lungs: Normal Breath Sounds, No Wheeze, Rales, Rhonchi Neuro: Alert and responsive, No focal deficits noted Abdomen: Soft, Non-Tender Skin: No rashes noted on visualized skin Musculoskeletal: No Chest Wall Tenderness Extremities: No Clubbing, No Cyanosis, Normal Pulses, Other (1+ ankle edema noted. ) Results 06/10/18 12:42 06/10/18 03:28 Lab Results 06/09/18 06/10/18 06/10/18 18:50 03:28 03:28 WBC 31.8 H* Hgb 10.0 L D Hct 32.4 L Plt Count 348 INR Sodium 140 Potassium 4.1 D Chloride 100 Carbon Dioxide 35 H BUN 9 Creatinine 0.29 L Glucose 160 H Calcium 8.2 L Troponin I 0.07 H* TSH 06/10/18 06/10/18 06/10/18 03:28 09:57 12:42 WBC 37.7 H* Hgb 10.1 L Hct 33.5 L Plt Count 398 INR Sodium Potassium Chloride Carbon Dioxide BUN Creatinine Glucose Calcium Troponin I 0.04 H* 0.05 H* TSH 0.350 06/10/18 12:42 WBC Hgb Hct Plt Count INR 1.1 Sodium Potassium Chloride Carbon Dioxide BUN Creatinine Glucose Calcium Troponin I TSH - Imaging and Cardiology Echo: pending - EKG Interpretation EKG results cardiology: personally reviewed Consult Discharge Plan - Plan Referrals: Aneta Leal MD [Primary Care Provider] - <Roque Rose - Last Filed: 06/10/18 17:41> Date of Encounter: 06/10/18 - Attending Attestation Patient was seen and evaluated independently by me. Findings, assessment and plan were discussed at length with patient, questions answered. Agree with nurse practitioner's documentation. Addition as follows, 75 yo CF ho HTN, COPD. Admitted for MRSA PNA with bacteremia. Consulted for new Afib RVR. Pt is not aware of ho arrhythmia but did admit intermittent palpitations years. Denied STONE, cp prior to this episode. Vital stable Exam significant for B/L crackles to mid lungs, IIR, mild tachy, B/ L 1+ LE edema ECG, Tele reviewed. Mild elevated trop flat. On heparin drip and rate 90s-low 100s on low dose BB A: Afib with mild RVR, demand ischemia triggered by acute systemic disease (SIRS , PNA, bacteremia), mild fluid overload P: heparin then switch to NOAC BB dose adjustment per HR pending TTE for LVEF, lasix fantasma Rose MD, PhD Assessment and Plan Discussion w patient/family: The assessment and plan as outlined above was discussed with the patient and/or family members who expressed understanding and agreement. All questions were answered. Thank you for involving us in the care of your patient. Please call with any questions. History of Present Illness History of present illness: Ms. Alvares is a 73 year old female All Systems Review: The remainder of the systems were reviewed and are negative Physical Examination Vital Signs, Last 4 Hours Temp Pulse Resp BP Pulse Ox 06/10/18 16:22 97.4 F L 99 16 142/79 98 06/10/18 14:38 22 104/65 95 Results 06/10/18 12:42 06/10/18 03:28 Lab Results 06/09/18 06/10/18 06/10/18 18:50 03:28 03:28 WBC 31.8 H* Hgb 10.0 L D Hct 32.4 L Plt Count 348 INR Sodium 140 Potassium 4.1 D Chloride 100 Carbon Dioxide 35 H BUN 9 Creatinine 0.29 L Glucose 160 H Calcium 8.2 L Troponin I 0.07 H* TSH 06/10/18 06/10/18 06/10/18 03:28 09:57 12:42 WBC 37.7 H* Hgb 10.1 L Hct 33.5 L Plt Count 398 INR Sodium Potassium Chloride Carbon Dioxide BUN Creatinine Glucose Calcium Troponin I 0.04 H* 0.05 H* TSH 0.350 06/10/18 12:42 WBC Hgb Hct Plt Count INR 1.1 Sodium Potassium Chloride Carbon Dioxide BUN Creatinine Glucose Calcium Troponin I TSH
[2018-06-10] MEDS ORDERED: Furosemide 20 MG/2 ML VIAL IVP ONE (14:36)
[2018-06-10] MEDS: Heparin 25,000 UNIT/500 ML D5W 25,000 UNIT/500 ML BAG IVC SCH (15:36)
--- NOTE | 2018-06-10 17:13 | Pulmonology Consult Note ---
<Gabriel Rivera - Last Filed: 06/10/18 18:21> Date of Encounter: 06/10/18 Time of Encounter: 17:13 Assessment and Plan (1) MRSA (methicillin resistant staphylococcus aureus) pneumonia Current Visit: Yes Status: Acute CT chest from 06/10 concerning for right upper lobe abscess related to MRSA pneumonia and right middle lobe cavitary lesion Afebrile Elevated WBC at 37.7 today Afib rate at 90s to 100s Non-labored breathing on 3lpm O2 via NC Start 40mg prednisone in the setting of severe COPD Continue abx per ID Continue supplemental O2 and duonebs Continue home Symbicort Qualifiers: Laterality: right Lung location: middle lobe of lung Qualified Code(s): J15.212 - Pneumonia due to Methicillin resistant Staphylococcus aureus (2) COPD (chronic obstructive pulmonary disease) Current Visit: Yes Status: Chronic acute exacerbation 2/2 MRSA pneumonia Management as above Qualifiers: COPD type: COPD with acute exacerbation Qualified Code(s): J44.1 - Chronic obstructive pulmonary disease with (acute) exacerbation History of Present Illness Consult date: 06/10/18 Requesting physician: Addison Rosas Reason for consult: COPD, pneumonia Chief complaint: Increased cough with sputum production History of present illness: Ms. Alvares is a 73F with PMH of severe COPD, and afib who is complaining of dyspnea, increased cough, and increased yellow sputum production. These symptoms originally began last Saturday along with some weakness and fatigue. Pt went to ER on 06/05, CXR at that time revealed a new nodule in the right mid lung. Subsequent CT of the chest also revealed the mass in the right middle lobe concerning for pneumonia vs malignancy. Pt was discharged at the time with a prescription for Levaquin. A blood culture from 06/05 grew MRSA, results were called to patient and she was advised to return to the ER. Pt returned to ER on 06/09 and was admitted for MRSA pneumonia. Repeat CT chest on 06/10 showed the previous right middle lobe mass had an air fluid level. During the encounter with this provider, pt was resting comfortably in bed. She continues to complain of dyspnea, increased cough with yellow sputum production , and weakness. Pt denies any fever, chills, headache, chest pain, hemoptysis, abdominal pain, numbness, or tingling. Pt states she quit smoking approximately 10 years ago, but had smoked for approximately 50 years prior. Past Med Surg Social Fam HX - Past Medical History Medical history: COPD, hypertension Additional medical history: mass in right lung, hyponatremia, hypokalemia, RLL PN, vitamin D deficiency, OA, carpal tunnel, oxygen dependent Psychiatric history: no psych history - Past Surgical History Surgical History: cholecystectomy, hysterectomy Additional surgical history: BLADDER TUCK, HERNIA REPAIR, left arm - Social History Smoking Status: Former smoker Smokeless Tobacco Status: No Alcohol use: none Drug use: none - Family History Father Hx Family Respiratory Disorders: No Medications and Allergies Albuterol Sulfate [Proair Respiclick] 2 puff IH 1-2XD PRN 10/24/15 [History] Fexofenadine/Pseudoephedrine [Lay-D 12 Hour Tablet] 1 each PO DAILY [History] Oxygen [Oxygen] 2 l IH DAILY 04/04/16 [History] Aspirin 325 mg PO DAILY 10/26/16 [History] Calcium Carbonate/Vitamin D3 [Calcium 500 + Vit D Caplet] 1 each PO BID [History] [place]-3/Dha/Epa/Fish Oil [Fish Oil 1,000 mg Softgel] 1,000 mg PO DAILY 10/26/16 [History] Tiotropium [place] [Spiriva] 1 cap PO DAILY 10/26/16 [History] Vitamin E 1,000 unit PO DAILY 10/26/16 [History] Levofloxacin [Levaquin] 750 mg PO DAILY #7 tablet 06/05/18 [Rx] Cetirizine HCl [Zyrtec] 10 mg PO DAILY 06/09/18 [History] Fluticasone/Salmeterol [Advair 500-50 Diskus] 1 puff IH BID 06/09/18 [History] Omeprazole [PriLOSEC] 20 mg PO DAILY 06/09/18 [History] Roflumilast [Daliresp] 500 mcg PO DAILY 06/09/18 [History] Simvastatin [Zocor] 10 mg PO QPM 06/09/18 [History] 3 Allergy/AdvReac Type Severity Reaction Status Date / Time No Known Allergies Allergy Verified 10/26/16 11:04 All Systems: The remainder of the systems were reviewed and are negative - Constitutional Constitutional: chills, fatigue, fever(s), weakness - Cardiovascular Cardiovascular: dyspnea, dyspnea on exertion, no chest pain, no diaphoresis, no lightheadedness, no pedal edema, no syncope - Respiratory Respiratory: cough, dyspnea, wheezing, chest congestion, excessive phlegm production, change in phlegm color, no hemoptysis - Gastrointestinal Gastrointestinal: heartburn, nausea, no abdominal pain, no diarrhea, no vomiting - Musculoskeletal Musculoskeletal: weakness, no numbness, no tingling - Neurological Neurological: no dizziness, no headache(s), no numbness, no tingling Physical Examination Vital Signs: Vital Signs, Last 4 Hours Temp Pulse Resp BP Pulse Ox 06/10/18 16:22 97.4 F L 99 16 142/79 98 06/10/18 14:38 22 104/65 95 General appearance: no acute distress, alert Eyes: nonicteric ENT: oropharynx moist Neck: supple, no lymphadenopathy, no JVD Effort: normal Inspection: normal Auscultation: bilateral: diminished breath sounds (bases more diminished bilaterally ) Percussion: bilateral: not dull Tactile fremitus: bilateral: normal Cardiovascular: regular rate and rhythm Gastrointestinal: soft, non-tender, non-distended Integumentary: normal Extremities: no cyanosis, no edema, no clubbing, pink and warm Musculoskeletal: no deformities Gait: normal posture normal mental status, non-focal exam mood appropriate, affect normal Results - Laboratory Findings CBC and BMP: 06/10/18 12:42 06/10/18 03:28 ABG ABG pH 7.31 pH Units (7.32-7.45) L 06/10/18 04:29 ABG pCO2 78 mmHg (35-45) H* 06/10/18 04:29 ABG pO2 125 mmHg (85-104) H 06/10/18 04:29 ABG O2 Saturation 98 % (95-98) 06/10/18 04:29 PT/INR, D-dimer PT 12.1 Seconds (9.4-12.1) 06/10/18 12:42 Abnormal lab findings: Abnormal lab results WBC 37.7 K/mcL (4.3-11.1) H* 06/10/18 12:42 RBC 3.53 M/mcL (3.82-4.97) L 06/10/18 12:42 Hgb 10.1 g/dL (11.5-15.4) L 06/10/18 12:42 Hct 33.5 % (35.3-44.9) L 06/10/18 12:42 MCHC 30.1 g/dL (31.6-35.5) L 06/10/18 12:42 Band Neutrophils % 38.0 % (0-4) H 06/09/18 12:22 Metamyelocytes % 4.0 % (0) H 06/09/18 12:22 Neutrophils # 29.3 K/mcL (1.6-8.9) H 06/10/18 03:28 Nucleated RBCs/100 WBC 0.2 /100 WBC (0) H 06/10/18 03:28 Hypochromasia Present (Not Present) A 06/10/18 03:28 APTT 24.9 Seconds (26.0-36.0) L 06/09/18 12:22 Heparin Anti-Xa, Unfract 0.14 IU/mL (0.30-0.70) L 06/10/18 12:42 ABG pH 7.31 pH Units (7.32-7.45) L 06/10/18 04:29 ABG pCO2 78 mmHg (35-45) H* 06/10/18 04:29 ABG pO2 125 mmHg (85-104) H 06/10/18 04:29 ABG HCO3 39 mEq/L (21-27) H 06/10/18 04:29 ABG Total CO2 41 mEq/L (20-26) H 06/10/18 04:29 ABG Base Excess 10 mEq/L (-2 to 3) H 06/10/18 04:29 Carbon Dioxide 35 mEq/L (23-29) H 06/10/18 03:28 Creatinine 0.29 mg/dL (0.60-1.20) L 06/10/18 03:28 BUN/Creatinine Ratio 31 (6-26) H 06/10/18 03:28 Glucose 160 mg/dL (70-105) H 06/10/18 03:28 Calcium 8.2 mg/dL (8.6-10.3) L 06/10/18 03:28 Phosphorus 2.2 mg/dL (2.7-4.5) L 06/09/18 12:22 Alkaline Phosphatase 119 Units/L (34-104) H 06/09/18 12:22 Troponin I 0.05 ng/mL (< 0.04) H* 06/10/18 09:57 Albumin 2.9 g/dL (3.5-5.7) L 06/09/18 12:22 Globulin 3.8 g/dL (2.4-3.5) H 06/09/18 12:22 Albumin/Globulin Ratio 0.8 (1.1-2.2) L 06/09/18 12:22 Rheumatoid Factor 18 IU/mL (Less than 14) H 06/10/18 12:22 - Microbiology Findings Microbiology Findings: Microbiology, Last 48 Hours 06/10/18 14:00 Blood Culture - Preliminary Peripheral Venipuncture Culture is incubating and being continuously monitored for growth. Final report to follow. 06/10/18 14:10 Blood Culture - Preliminary Peripheral Venipuncture Culture is incubating and being continuously monitored for growth. Final report to follow. - Diagnostic Findings Chest x-ray: report reviewed, image reviewed CT scan - chest: report reviewed, image reviewed PFT's: report reviewed - Clinical Findings Intake & Output: Intake & Output 06/10/18 06/10/18 06/10/18 07:59 15:59 23:59 Intake Total 1100 / 1100 250 / 250 0 / 0 Output Total 400 / 400 300 / 300 Balance 700 / 700 250 / 250 -300 / -300 Weight 44.3 kg 61.802 kg Consult Discharge Plan - Plan Referrals: Aneta Leal MD [Primary Care Provider] - <Jose A Howell W - Last Filed: 06/11/18 07:11> Date of Encounter: 06/11/18 All Systems: The remainder of the systems were reviewed and are negative Physical Examination Vital Signs: Vital Signs, Last 4 Hours Temp Pulse Resp BP Pulse Ox 06/11/18 04:13 97.9 F 97 18 137/81 98 06/11/18 03:58 16 96 Results - Laboratory Findings CBC and BMP: 06/11/18 05:24 06/11/18 05:24 ABG ABG pH 7.31 pH Units (7.32-7.45) L 06/10/18 04:29 ABG pCO2 78 mmHg (35-45) H* 06/10/18 04:29 ABG pO2 125 mmHg (85-104) H 06/10/18 04:29 ABG O2 Saturation 98 % (95-98) 06/10/18 04:29 PT/INR, D-dimer PT 12.1 Seconds (9.4-12.1) 06/10/18 12:42 Abnormal lab findings: Abnormal lab results WBC 33.4 K/mcL (4.3-11.1) H* 06/11/18 05:24 RBC 3.37 M/mcL (3.82-4.97) L 06/11/18 05:24 Hgb 9.8 g/dL (11.5-15.4) L 06/11/18 05:24 Hct 31.4 % (35.3-44.9) L 06/11/18 05:24 MCHC 31.2 g/dL (31.6-35.5) L 06/11/18 05:24 Metamyelocytes % 4.0 % (0) H 06/09/18 12:22 Neutrophils # 30.1 K/mcL (1.6-8.9) H 06/11/18 05:24 Nucleated RBCs/100 WBC 0.1 /100 WBC (0) H 06/11/18 05:24 Hypochromasia Present (Not Present) A 06/10/18 03:28 APTT 24.9 Seconds (26.0-36.0) L 06/09/18 12:22 ABG pH 7.31 pH Units (7.32-7.45) L 06/10/18 04:29 ABG pCO2 78 mmHg (35-45) H* 06/10/18 04:29 ABG pO2 125 mmHg (85-104) H 06/10/18 04:29 ABG HCO3 39 mEq/L (21-27) H 06/10/18 04:29 ABG Total CO2 41 mEq/L (20-26) H 06/10/18 04:29 ABG Base Excess 10 mEq/L (-2 to 3) H 06/10/18 04:29 Chloride 97 mEq/L (98-107) L 06/11/18 05:24 Carbon Dioxide 38 mEq/L (23-29) H 06/11/18 05:24 Creatinine 0.33 mg/dL (0.60-1.20) L 06/11/18 05:24 BUN/Creatinine Ratio 36 (6-26) H 06/11/18 05:24 Glucose 178 mg/dL (70-105) H 06/11/18 05:24 Calcium 8.5 mg/dL (8.6-10.3) L 06/11/18 05:24 Alkaline Phosphatase 119 Units/L (34-104) H 06/09/18 12:22 Troponin I 0.05 ng/mL (< 0.04) H* 06/10/18 09:57 Albumin 2.9 g/dL (3.5-5.7) L 06/09/18 12:22 Globulin 3.8 g/dL (2.4-3.5) H 06/09/18 12:22 Albumin/Globulin Ratio 0.8 (1.1-2.2) L 06/09/18 12:22 Rheumatoid Factor 18 IU/mL (Less than 14) H 06/10/18 12:22 - Microbiology Findings Microbiology Findings: Microbiology, Last 48 Hours 06/10/18 19:45 Sputum Culture - Preliminary Sputum 06/10/18 19:45 Legionella Antigen - Final Urine,Clean Catch Streptococcus pneumoniae Antigen (M - Final 06/10/18 14:00 Blood Culture - Preliminary Peripheral Venipuncture Culture is incubating and being continuously monitored for growth. Final report to follow. 06/10/18 14:10 Blood Culture - Preliminary Peripheral Venipuncture Culture is incubating and being continuously monitored for growth. Final report to follow. - Clinical Findings Intake & Output: Intake & Output 06/10/18 06/10/18 06/11/18 15:59 23:59 07:59 Intake Total 350 / 350 928 / 928 129 / 129 Output Total 1700 / 1700 Balance 350 / 350 -772 / -772 129 / 129 Weight 61.802 kg 60.9 kg - Attending Attestation I examined this patient and my medical decision-making was reviewed with the Resident Physician. I agree with the documented findings, disposition and treatment plan as described except to the extent set forth below. We independently had [id number] contact with the patient Patient seen and examined at bedside Labs, radiology, chart personally reviewed. Impression: MRSA pneumonia Cavitary lung nodules AECOPD Chronic respiratory failure Recs: I believe that bronchoscopy would add little to diagnostic equation at this time I favor treating aggressively for MRSA pneumonia and will defer to ID for management of antimicrobial therapy with the caveat that once bloodstream is cleared linezolid may be a more attractive choice for lung penetration in this situation. In general terms I favor treating this infection more like a lung abscess with prolonged antimicrobials especially given the pattern I see in the right lower lobe. With repeat imaging in 3-6 weeks would have further delineation of underlying lung parenchyma status post treatment for infection this could give us a better sense if there could be concomitant underlying lung malignancy which is quite possible. Please call with questions
[2018-06-10] MEDS: predniSONE 20 MG TABLET PO SCH (21:16)
[2018-06-11] MEDS: Piperacillin/Tazobactam 3.375 GM in 0.9 % Sodium Chloride Mini Bag 100 ML IVPB SCH ×2 (00:57→08:37)
[2018-06-11] MEDS: Ipratropium/Albuterol Neb 3 ML IH SCH ×4 (03:58→22:08)
[2018-06-11 05:34] LABS: Mean Corpuscular HGB Conc 31.2 g/dL (31.6-35.5); Nucleated Red Blood Cells 0.1 /100 WBC (0); Red Cell Distribution Width 14.3 % (11.5-14.5)
[2018-06-11 05:36] LABS: Hematocrit 31.4 % (35.3-44.9); Hemoglobin 9.8 g/dL (11.5-15.4); Mean Corpuscular Hemoglobin 29.1 pg (28.0-33.3); Mean Corpuscular Volume 93.2 fL (83.0-100.0); Mean Platelet Volume 9.6 fL (9.4-12.4); Platelet Count 394 K/mcL (140-400); Red Blood Count 3.37 M/mcL (3.82-4.97)
[2018-06-11] MEDS: Acetaminophen 325 MG TABLET PO PRN (05:55)
[2018-06-11 05:59] LABS: BUN/Creatinine Ratio 36 (6-26); Blood Urea Nitrogen 12 mg/dL (8-23); Calcium 8.5 mg/dL (8.6-10.3); Carbon Dioxide 38 mEq/L (23-29); Chloride 97 mEq/L (98-107); Glucose 178 mg/dL (70-105); Magnesium 1.8 mg/dL (1.6-2.6); Osmolality,Calculated 294 (280-300); Sodium 140 mEq/L (136-145); eGFR For Non-African Americans > 60 (> 60)
[2018-06-11 06:07] LABS: Lymphocytes # 3.3 K/mcL (0.6-4.6); Neutrophils # 30.1 K/mcL (1.6-8.9)
[2018-06-11 06:08] LABS: Platelet Estimate Normal (Normal)
[2018-06-11] MEDS: predniSONE 20 MG TABLET PO SCH (08:36)
[2018-06-11] MEDS: Loratadine 10 MG TABLET PO SCH (08:37)
[2018-06-11] MEDS: Cholecalciferol (D-3) 1,000 UNIT TABLET PO SCH (08:37)
--- NOTE | 2018-06-11 09:07 | Internal Med Progress Note ---
Hospitalist Progress Note - Encounter Date of Encounter: 06/11/18 Time of Encounter: 09:03 - Subjective Interval History: Patient seen and examined at bedside. Patient no acute events overnight. Patient states that she feels improved from yesterday. Patient denies any chest pain, nausea, vomiting, diarrhea. Patient admits to continued productive cough and mild shortness of breath. Patient evaluated with pulmonology and cardiology yesterday. Again discussed with patient continuing anticoagulation in the light of cavitary lesions and increased risk of hemoptysis. Patient is agreeable to continue anticoagulation currently. - Exam Vitals: Temp Pulse Resp BP Pulse Ox 98.6 F 99 17 135/73 98 06/11/18 07:55 06/11/18 07:55 06/11/18 07:55 06/11/18 07:55 06/11/18 07:55 Exam: Constitutional: No acute distress, Alert Psych: AAO x 3 HEENT: NCAT, EOMI Neck: supple, no JVD Cardio: regular rate and rhythm, tachycardic but improved in 90s now Resp: coarse bs throughtout with occasional rhonchi RLL, bibalisar crackles today Abd: soft, non tender/non distended, positive bowel sounds, no gaurding/reboud/ ridgitity Extremities: trace edema lower extremities Neuro: no focal deficits appreciated - Assessment and Plan (1) Acute and chronic respiratory failure with hypoxia Current Visit: Yes Status: Acute Assessment and Plan: Patient has acute on chronic respiratory failure with hypoxia and hypercapnia -down to home oxygen dose of 2.5 L via nc -Likely secondary to severe multi focal pneumonia -Maintain pulse ox symmetry between 88-92% -BiPAP if necessary but improving -Prednisone added for AECOPD -Pulm/ID following (2) Bacteremia Current Visit: Yes Status: Acute Assessment and Plan: -MRSA in blood culture on 06/05 likely 2/2 MRSA Pneumonia -repeat cultures neagative to date on 06/09 and 06/10 -echo pending -on vanco/zosyn -ID following (3) Sepsis Current Visit: Yes Status: Acute Assessment and Plan: Severe sepsis likely secondary to pneumonia with cardiac and respiratory end organ damage - CXR with cavitory lesion. 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, zosyn - dc IVF; likely will need diuresis soon - f/u blood cultures - ID and Pulm following - obtain sputum sample -repeat ct chest revealed Bilateral multifocal peribronchial nodular masslike consolidation which has progressed in the left upper lobe consistent with an infectious etiology. The right middle lobe nodule identified on the prior exam has undergone cavitation. Stable complex masslike consolidation of the medial right middle lobe measuring 8.3 cm with complex internal air which may relate to a combination of bronchiectasis and cavitation. Given the rapidity of the changes the findings most likely represent an infectious etiology. Other consideration includes metastatic disease or pulmonary lymphoma. (4) Pneumonia Current Visit: Yes Status: Acute Assessment and Plan: as above (5) COPD (chronic obstructive pulmonary disease) Current Visit: Yes Status: Chronic Assessment and Plan: -Acute exacerbation of COPD - continue duonebs, symbicort and spiriva - continue prednisone (6) Elevated troponin Current Visit: Yes Status: Acute Assessment and Plan: - likely from demand - downtrending -cardio following (7) Hypokalemia Current Visit: Yes Status: Resolved Assessment and Plan: - replaced - wnl now - monitor (8) New onset a-fib Current Visit: Yes Status: Acute Assessment and Plan: Patient with new onset A. fib with RVR -Currently in sinus rhythm with tachycardia secondary to sepsis -Chadsvasc of 2 -Discussed anticoagulation with patient and is agreeable even in light of increased risk of hemoptysis; discussed at length with pt again today and would like to continue AC -continue heparin drip -cardio folloing -We will check pricing of xarelto -will start coumadin tonight if xarelto too expensive -Continue lopressor, increase if HR does not improve with continued treatment of sepsis (9) Dysphagia Current Visit: Yes Status: Acute Assessment and Plan: -pt reports dysphasia with solids -consult GI -on ppi DVT Prophylaxis: hep gtt - Summary of Assessment and Plan Summary of Assessment and Plan: Patient improving but remains very high risk for complications and deterioration - Time Spent with Patient Total time spent is greater than 50% in coordination of care (as documented) at patient's floor/unit and/or counseling patient: 25 - 35 minutes Plan of Care Discussed with: patient Internal Medicine: Result - Labs CBC & Chem 7: 06/11/18 05:24 06/11/18 05:24 Labs: Short CBC 06/10/18 06/11/18 Range/Units 12:42 05:24 WBC 37.7 H* 33.4 H* (4.3-11.1) K/mcL Hgb 10.1 L 9.8 L (11.5-15.4) g/dL Hct 33.5 L 31.4 L (35.3-44.9) % Plt Count 398 394 (140-400) K/mcL Neutrophils # 30.1 H (1.6-8.9) K/mcL BMP 06/11/18 05:24 Sodium 140 Potassium 4.0 Chloride 97 L Carbon Dioxide 38 H BUN 12 Creatinine 0.33 L Glucose 178 H Calcium 8.5 L Cardiac Enzymes 06/10/18 Range/Units 09:57 Troponin I 0.05 H* (< 0.04) ng/mL - ABG Interpretation ABG results: ABG ABG pH 7.31 pH Units (7.32-7.45) L 06/10/18 04:29 ABG pCO2 78 mmHg (35-45) H* 06/10/18 04:29 ABG pO2 125 mmHg (85-104) H 06/10/18 04:29 ABG O2 Saturation 98 % (95-98) 06/10/18 04:29 PT/INR, D-dimer PT 12.1 Seconds (9.4-12.1) 06/10/18 12:42 - Impressions Impressions Chest CT 06/10/18 12:10 IMPRESSION: 1. Emphysema and bronchiectasis. 2. Bilateral multifocal peribronchial nodular masslike consolidation which has progressed in the left upper lobe consistent with an infectious etiology. The right middle lobe nodule identified on the prior exam has undergone cavitation. Stable complex masslike consolidation of the medial right middle lobe measuring 8.3 cm with complex internal air which may relate to a combination of bronchiectasis and cavitation. Given the rapidity of the changes the findings most likely represent an infectious etiology. Other consideration includes metastatic disease or pulmonary lymphoma. 3. New mild bilateral pleural effusions with no pneumothorax. 4. Mediastinal lymphadenopathy. D/ / 06/10/2018 16:05:13 Momo Portillo MD / Johana Menjivar Interpreting Provider: Momo Portillo MD Consult Discharge Plan - Plan Referrals: Aneta Leal MD [Primary Care Provider] - (3) Sepsis Qualifiers: Sepsis type: methicillin resistant Staphylococcus aureus Qualified Code(s): A41.02 - Sepsis due to Methicillin resistant Staphylococcus aureus (4) Pneumonia Qualifiers: Pneumonia type: due to unspecified organism Laterality: unspecified laterality Lung location: unspecified part of lung Qualified Code(s): J18.9 - Pneumonia, unspecified organism (5) COPD (chronic obstructive pulmonary disease) Qualifiers: COPD type: COPD with acute exacerbation Qualified Code(s): J44.1 - Chronic obstructive pulmonary disease with (acute) exacerbation (9) Dysphagia Qualifiers: Dysphagia type: unspecified Qualified Code(s): R13.10 - Dysphagia, unspecified
[2018-06-11] MEDS: 0.9 % Sodium Chloride 1,000 ML IVC SCH (09:34)
--- NOTE | 2018-06-11 09:44 | Pulmonology Progress Note ---
<Gabriel Rivera - Last Filed: 06/11/18 09:59> Date of Encounter: 06/11/18 Time of Encounter: 08:15 Assessment and Plan (1) MRSA (methicillin resistant staphylococcus aureus) pneumonia Current Visit: Yes Status: Acute CT chest from 06/10 concerning for right upper lobe abscess related to MRSA pneumonia and right middle lobe cavitary lesion Afebrile Elevated WBC at 33.4 today Afib with heart rate in 90s Non-labored breathing on 3lpm O2 via NC with SpO2 98% Continue 40mg prednisone Continue abx per ID - Day 3 of Vanc and Zosyn Continue supplemental O2 and duonebs Continue home Symbicort Clinical improvement and recovery expected to take weeks due to multiple lung abscesses Follow up CT in 3-6 weeks Qualifiers: Laterality: right Lung location: middle lobe of lung Qualified Code(s): J15.212 - Pneumonia due to Methicillin resistant Staphylococcus aureus (2) COPD (chronic obstructive pulmonary disease) Current Visit: Yes Status: Chronic acute exacerbation 2/2 MRSA pneumonia Management as above Qualifiers: COPD type: COPD with acute exacerbation Qualified Code(s): J44.1 - Chronic obstructive pulmonary disease with (acute) exacerbation Subjective Principal diagnosis: MRSA pneumonia Interval history: No acute events overnight. Pt states she feels marginally better today with increased energy. No significant change in increased cough. Continued yellow sputum production. Denies any fever, chills, chest pain, hemoptysis, abdominal pain, nausea, vomiting, headache, numbness, or tingling. Objective PUL Vital signs: Last Vital Signs Temp 98.6 F 06/11/18 07:55 Pulse 99 06/11/18 07:55 Resp 17 06/11/18 07:55 BP 135/73 06/11/18 07:55 Pulse Ox 98 06/11/18 08:58 General appearance: no acute distress, alert Eyes: nonicteric ENT: oropharynx moist Neck: supple, no lymphadenopathy, no JVD Effort: normal Auscultation: bilateral: diminished breath sounds, wheezes (diffuse fine wheezes ) Percussion: bilateral: not dull Tactile fremitus: bilateral: normal Cardiovascular: regular rate and rhythm Gastrointestinal: soft, non-tender, non-distended Extremities: no cyanosis, no edema, no clubbing, pink and warm Musculoskeletal: no deformities Gait: normal posture normal mental status, non-focal exam mood appropriate, affect normal Results - Laboratory Findings CBC and BMP: 06/11/18 05:24 06/11/18 05:24 ABG ABG pH 7.31 pH Units (7.32-7.45) L 06/10/18 04:29 ABG pCO2 78 mmHg (35-45) H* 06/10/18 04:29 ABG pO2 125 mmHg (85-104) H 06/10/18 04:29 ABG O2 Saturation 98 % (95-98) 06/10/18 04:29 PT/INR, D-dimer PT 12.1 Seconds (9.4-12.1) 06/10/18 12:42 Abnormal lab findings: Abnormal lab results WBC 33.4 K/mcL (4.3-11.1) H* 06/11/18 05:24 RBC 3.37 M/mcL (3.82-4.97) L 06/11/18 05:24 Hgb 9.8 g/dL (11.5-15.4) L 06/11/18 05:24 Hct 31.4 % (35.3-44.9) L 06/11/18 05:24 MCHC 31.2 g/dL (31.6-35.5) L 06/11/18 05:24 Metamyelocytes % 4.0 % (0) H 06/09/18 12:22 Neutrophils # 30.1 K/mcL (1.6-8.9) H 06/11/18 05:24 Nucleated RBCs/100 WBC 0.1 /100 WBC (0) H 06/11/18 05:24 Hypochromasia Present (Not Present) A 06/10/18 03:28 APTT 24.9 Seconds (26.0-36.0) L 06/09/18 12:22 ABG pH 7.31 pH Units (7.32-7.45) L 06/10/18 04:29 ABG pCO2 78 mmHg (35-45) H* 06/10/18 04:29 ABG pO2 125 mmHg (85-104) H 06/10/18 04:29 ABG HCO3 39 mEq/L (21-27) H 06/10/18 04:29 ABG Total CO2 41 mEq/L (20-26) H 06/10/18 04:29 ABG Base Excess 10 mEq/L (-2 to 3) H 06/10/18 04:29 Chloride 97 mEq/L (98-107) L 06/11/18 05:24 Carbon Dioxide 38 mEq/L (23-29) H 06/11/18 05:24 Creatinine 0.33 mg/dL (0.60-1.20) L 06/11/18 05:24 BUN/Creatinine Ratio 36 (6-26) H 06/11/18 05:24 Glucose 178 mg/dL (70-105) H 06/11/18 05:24 Calcium 8.5 mg/dL (8.6-10.3) L 06/11/18 05:24 Alkaline Phosphatase 119 Units/L (34-104) H 06/09/18 12:22 Troponin I 0.05 ng/mL (< 0.04) H* 06/10/18 09:57 Albumin 2.9 g/dL (3.5-5.7) L 06/09/18 12:22 Globulin 3.8 g/dL (2.4-3.5) H 06/09/18 12:22 Albumin/Globulin Ratio 0.8 (1.1-2.2) L 06/09/18 12:22 Rheumatoid Factor 18 IU/mL (Less than 14) H 06/10/18 12:22 - Microbiology Findings Microbiology Findings: Microbiology, Last 48 Hours 06/10/18 19:45 Sputum Culture - Preliminary Sputum 06/10/18 19:45 Legionella Antigen - Final Urine,Clean Catch Streptococcus pneumoniae Antigen (M - Final 06/10/18 14:00 Blood Culture - Preliminary Peripheral Venipuncture Culture is incubating and being continuously monitored for growth. Final report to follow. 06/10/18 14:10 Blood Culture - Preliminary Peripheral Venipuncture Culture is incubating and being continuously monitored for growth. Final report to follow. - Clinical Findings Intake & Output: Intake & Output 06/10/18 06/11/18 06/11/18 23:59 07:59 15:59 Intake Total 928 / 928 229 / 229 Output Total 1700 / 1700 0 / 0 Balance -772 / -772 229 / 229 0 / 0 Weight 60.9 kg Consult Discharge Plan - Plan Referrals: Aneta Leal MD [Primary Care Provider] - Prescriptions: Rivaroxaban [Xarelto] 20 mg PO DAILY 30 Days #30 tablet <Jose A Howell W - Last Filed: 06/11/18 12:27> Date of Encounter: 06/11/18 Objective PUL Vital signs: Last Vital Signs Temp 98.3 F 06/11/18 11:29 Pulse 87 06/11/18 11:29 Resp 18 06/11/18 11:29 BP 139/82 06/11/18 11:29 Pulse Ox 97 06/11/18 11:29 Results - Laboratory Findings CBC and BMP: 06/11/18 05:24 06/11/18 05:24 ABG ABG pH 7.31 pH Units (7.32-7.45) L 06/10/18 04:29 ABG pCO2 78 mmHg (35-45) H* 06/10/18 04:29 ABG pO2 125 mmHg (85-104) H 06/10/18 04:29 ABG O2 Saturation 98 % (95-98) 06/10/18 04:29 PT/INR, D-dimer PT 12.1 Seconds (9.4-12.1) 06/10/18 12:42 Abnormal lab findings: Abnormal lab results WBC 33.4 K/mcL (4.3-11.1) H* 06/11/18 05:24 RBC 3.37 M/mcL (3.82-4.97) L 06/11/18 05:24 Hgb 9.8 g/dL (11.5-15.4) L 06/11/18 05:24 Hct 31.4 % (35.3-44.9) L 06/11/18 05:24 MCHC 31.2 g/dL (31.6-35.5) L 06/11/18 05:24 Metamyelocytes % 4.0 % (0) H 06/09/18 12:22 Neutrophils # 30.1 K/mcL (1.6-8.9) H 06/11/18 05:24 Nucleated RBCs/100 WBC 0.1 /100 WBC (0) H 06/11/18 05:24 Hypochromasia Present (Not Present) A 06/10/18 03:28 APTT 24.9 Seconds (26.0-36.0) L 06/09/18 12:22 ABG pH 7.31 pH Units (7.32-7.45) L 06/10/18 04:29 ABG pCO2 78 mmHg (35-45) H* 06/10/18 04:29 ABG pO2 125 mmHg (85-104) H 06/10/18 04:29 ABG HCO3 39 mEq/L (21-27) H 06/10/18 04:29 ABG Total CO2 41 mEq/L (20-26) H 06/10/18 04:29 ABG Base Excess 10 mEq/L (-2 to 3) H 06/10/18 04:29 Chloride 97 mEq/L (98-107) L 06/11/18 05:24 Carbon Dioxide 38 mEq/L (23-29) H 06/11/18 05:24 Creatinine 0.33 mg/dL (0.60-1.20) L 06/11/18 05:24 BUN/Creatinine Ratio 36 (6-26) H 06/11/18 05:24 Glucose 178 mg/dL (70-105) H 06/11/18 05:24 Calcium 8.5 mg/dL (8.6-10.3) L 06/11/18 05:24 Alkaline Phosphatase 119 Units/L (34-104) H 06/09/18 12:22 Troponin I 0.05 ng/mL (< 0.04) H* 06/10/18 09:57 Albumin 2.9 g/dL (3.5-5.7) L 06/09/18 12:22 Globulin 3.8 g/dL (2.4-3.5) H 06/09/18 12:22 Albumin/Globulin Ratio 0.8 (1.1-2.2) L 06/09/18 12:22 Rheumatoid Factor 18 IU/mL (Less than 14) H 06/10/18 12:22 - Microbiology Findings Microbiology Findings: Microbiology, Last 48 Hours 06/10/18 19:45 Sputum Culture - Preliminary Sputum 06/10/18 19:45 Legionella Antigen - Final Urine,Clean Catch Streptococcus pneumoniae Antigen (M - Final 06/10/18 14:00 Blood Culture - Preliminary Peripheral Venipuncture Culture is incubating and being continuously monitored for growth. Final report to follow. 06/10/18 14:10 Blood Culture - Preliminary Peripheral Venipuncture Culture is incubating and being continuously monitored for growth. Final report to follow. - Clinical Findings Intake & Output: Intake & Output 06/10/18 06/11/18 06/11/18 23:59 07:59 15:59 Intake Total 928 / 928 229 / 229 Output Total 1700 / 1700 0 / 0 Balance -772 / -772 229 / 229 0 / 0 Weight 60.9 kg - Attending Attestation I examined this patient and my medical decision-making was reviewed with the Resident Physician. I agree with the documented findings, disposition and treatment plan as described except to the extent set forth below. We independently had [id number] contact with the patient Patient seen and examined at bedside Labs, radiology, chart personally reviewed. Impression: MRSA PNA AECOPD Chronic Respiratory Failure Cavitary Lung Lesions Recs: I discussed the case with the attending infectious disease physician Dr. Ruiz plan for prolonged treatment of MRSA pneumonia with repeat CT scan to evaluate for underlying malignancy Patient will need outpatient pulmonary follow-up please call with questions we will sign off thanks for this consultation
--- NOTE | 2018-06-11 10:30 | Infectious Disease Progress No ---
Date of Encounter: 06/11/18 Time of Encounter: 10:27 - Assessment and Plan (1) Severe sepsis Current Visit: Yes Status: Acute The patient had 2 sepsis criteria plus lactic acidosis on admission. Likely secondary to bacteremia and pneumonia. Clinically improved. White blood cell count is trending down. Tachycardia has resolved. She was afebrile overnight. Blood cultures obtained 06/09/18 is NGTD 1 set. Repeat blood cultures drawn 06/10/18 are pending 2 sets. (2) Bacteremia Current Visit: Yes Status: Acute Causative organism: MRSA. Source: Unclear, possibly pneumonia, although less likely. Blood cultures obtained set was positive. Repeat blood culture obtained set is no growth to date. No endocarditis stigmata noted on exam. Complicated due to the presence of hardware in the right upper extremity. The patient has 2 minor modified Weld criteria. Repeat blood cultures 2 sets drawn 06/10/18 are pending. Check rheumatoid factor.--> Elevated at 18. TTE negative for vegetations. The patient will need a HARIS prior to discharge. Continue vancomycin IV. Pharmacy to dose. Vanc trough approximately 15. Vanc trough 06/11/18 8. Duration of treatment depends on the clinical picture. Monitor renal function and for drug toxicity and dose adjust antibiotics. Avoid insertion of central venous access until repeat blood cultures are negative x 48 hours. consulting services associate to assist with discharge planning. Additional ID recommendations to follow pending culture results and clinical outcomes. (3) Cavitary lesion of lung Current Visit: Yes Status: Acute Location: Right middle lung field. Etiology unclear: Septic emboli versus infectious versus malignancy versus other. Chest x-ray completed 06/09/18 showed a large cavitary infiltrate in the right midlung. No history of TB exposure. Pulmonology consulted. Not planning on bronching the patient at this point as they feel that the CT findings are most likely related to infection. Recommend treating infection and repeating imaging. Continue vancomycin IV. Pharmacy to dose. Goal trough approximately 15. Discontinue Zosyn. Duration of treatment depends on the clinical picture. Monitor renal function and for drug toxicity and does adjust antibiotics. (4) Pneumonia Current Visit: Yes Status: Acute Location: Bilateral. Causative organism: Unclear. Possibly MRSA, but less likely given the patient' s lack of healthcare exposure. CTA chest completed 06/05/18 showed airspace consolidation in the right lower lobe , likely related to pneumonia as well as a masslike consolidation in the right middle lobe, likely related to pneumonia. Chest x-ray completed 06/09/18 showed worsening bilateral lung infiltrates, concerning for multifocal pneumonia. Repeat CT of the chest completed 06/10/18 showed findings consistent with emphysema and bronchiectasis as well as bilateral multifocal peribronchial nodular masslike consolidation which has progressed in the left upper lobe consistent with an infectious etiology. The right middle lobe nodule identified on the prior exam has undergone cavitation. There is a stable complex masslike consolidation in the medial right middle lobe measuring 8.3 cm with complex internal air which may relate to combination of bronchiectasis and cavitation. Given the rapidity of the changes, the findings most likely represent an infectious etiology. Sputum culture is pending, but is currently no growth. Check strep pneumococcal and legionella urinary antigens.--> negative. The patient states that she does sometimes choke when she eats, so aspiration is also a possibility. Recommend speech therapy to evaluate. Continue vancomycin. Discontinue Zosyn. Duration of treatment depends on the clinical picture. Monitor renal function for neurotoxicity and is just antibiotics. Qualifiers: Pneumonia type: due to unspecified organism Laterality: unspecified laterality Lung location: unspecified part of lung Qualified Code(s): J18.9 - Pneumonia, unspecified organism (5) Acute and chronic respiratory failure with hypoxia Current Visit: Yes Status: Acute Likely secondary to pneumonia and possible cavitary lung lesion. Was noted to be hypoxic with SPO2 of 66% on arrival to the emergency department. Required BiPAP for short period of time, but is currently on high flow nasal cannula. Continue management per the primary and pulmonary teams. (6) Elevated troponin Current Visit: Yes Status: Acute Likely demand ischemia from sepsis. Continue to trend. Cardiology consulted. Further workup and management per the primary and cardiology teams. (7) Hypokalemia Current Visit: Yes Status: Resolved Likely secondary to poor by mouth intake. Resolved. (8) New onset a-fib Current Visit: Yes Status: Acute Likely secondary to sepsis. Cardiology consulted. (9) Dysphagia Current Visit: Yes Status: Acute Etiology unclear. Recommend speech consult to assist for aspiration. Recommend GI to evaluate. Qualifiers: Dysphagia type: unspecified Qualified Code(s): R13.10 - Dysphagia, unspecified (10) COPD (chronic obstructive pulmonary disease) Current Visit: Yes Status: Chronic Qualifiers: COPD type: COPD with acute exacerbation Qualified Code(s): J44.1 - Chronic obstructive pulmonary disease with (acute) exacerbation - Subjective Interval history: Patient seen and examined. No acute events noted overnight. Patient states overall she feels a little bit better today. Reports dyspnea on exertion and a moist productive cough. Denies any fevers or chills or rigors. Denies chest pain. Denies nausea or vomiting or diarrhea. Denies abdominal pain or urinary complaints. States her appetite a little bit better today. Denies any skin rashes or oral lesions. She does still complain of thoracic back pain. Infect Dis PN-Objective Data - Labs CBC & Chem 7: 06/11/18 05:24 06/11/18 05:24 Labs: Laboratory Results - last 24 hr 06/10/18 06/10/18 06/10/18 09:57 12:22 12:42 WBC 37.7 H* RBC 3.53 L Hgb 10.1 L Hct 33.5 L MCV 94.9 MCH 28.6 MCHC 30.1 L RDW 14.5 Plt Count 398 MPV 9.6 Seg Neutrophils % Band Neutrophils % Lymphocytes % Neutrophils # Lymphocytes # Nucleated RBCs/100 WBC Platelet Estimate PT INR Heparin Anti-Xa, Unfract Sodium Potassium Chloride Carbon Dioxide BUN Creatinine Est GFR ( Amer) Est GFR (Non-Af Amer) BUN/Creatinine Ratio Glucose Calculated Osmolality Calcium Phosphorus Magnesium Troponin I 0.05 H* Vancomycin Trough Rheumatoid Factor 18 H 06/10/18 06/10/18 06/11/18 12:42 21:34 00:00 WBC RBC Hgb Hct MCV MCH MCHC RDW Plt Count MPV Seg Neutrophils % Band Neutrophils % Lymphocytes % Neutrophils # Lymphocytes # Nucleated RBCs/100 WBC Platelet Estimate PT 12.1 INR 1.1 Heparin Anti-Xa, Unfract 0.14 L 0.24 L Sodium Potassium Chloride Carbon Dioxide BUN Creatinine Est GFR ( Amer) Est GFR (Non-Af Amer) BUN/Creatinine Ratio Glucose Calculated Osmolality Calcium Phosphorus Magnesium Troponin I Vancomycin Trough 8 Rheumatoid Factor 06/11/18 06/11/18 06/11/18 05:24 05:24 05:24 WBC 33.4 H* RBC 3.37 L Hgb 9.8 L Hct 31.4 L MCV 93.2 MCH 29.1 MCHC 31.2 L RDW 14.3 Plt Count 394 MPV 9.6 Seg Neutrophils % 86.0 Band Neutrophils % 4.0 Lymphocytes % 10.0 Neutrophils # 30.1 H Lymphocytes # 3.3 Nucleated RBCs/100 WBC 0.1 H Platelet Estimate Normal PT INR Heparin Anti-Xa, Unfract 0.50 Sodium 140 Potassium 4.0 Chloride 97 L Carbon Dioxide 38 H BUN 12 Creatinine 0.33 L Est GFR ( Amer) > 60 Est GFR (Non-Af Amer) > 60 BUN/Creatinine Ratio 36 H Glucose 178 H Calculated Osmolality 294 Calcium 8.5 L Phosphorus 3.0 Magnesium 1.8 Troponin I Vancomycin Trough Rheumatoid Factor Cultures: Cultures 06/10/18 19:45 Sputum Culture - Preliminary Sputum 06/10/18 19:45 Legionella Antigen - Final Urine,Clean Catch Streptococcus pneumoniae Antigen (M - Final 06/10/18 14:00 Blood Culture - Preliminary Peripheral Venipuncture Culture is incubating and being continuously monitored for growth. Final report to follow. 06/10/18 14:10 Blood Culture - Preliminary Peripheral Venipuncture Culture is incubating and being continuously monitored for growth. Final report to follow. - Impressions Impressions Chest CT 06/10/18 12:10 IMPRESSION: 1. Emphysema and bronchiectasis. 2. Bilateral multifocal peribronchial nodular masslike consolidation which has progressed in the left upper lobe consistent with an infectious etiology. The right middle lobe nodule identified on the prior exam has undergone cavitation. Stable complex masslike consolidation of the medial right middle lobe measuring 8.3 cm with complex internal air which may relate to a combination of bronchiectasis and cavitation. Given the rapidity of the changes the findings most likely represent an infectious etiology. Other consideration includes metastatic disease or pulmonary lymphoma. 3. New mild bilateral pleural effusions with no pneumothorax. 4. Mediastinal lymphadenopathy. D/ / 06/10/2018 16:05:13 Momo Portillo MD / Johana Menjivar Interpreting Provider: Momo Portillo MD Echocardiogram 06/10/18 22:07 Impressions: LVEF 60%. Normal LV chamber size, wall thickness and function. Mild left ventricular diastolic dysfunction. Normal right ventricular structure and function. No evidence of pulmonary hypertension. No significant valvular dysfunction. No obvious vegetations visualized. Consider HARIS if clinically indicated. Left Ventricular Wall Motion: Rest Echo Findings All wall segments showed normal motion. Findings: Study Quality * Technically sub-optimal due to poor echocardiographic windows. ECG Findings * Normal sinus rhythm. Left Ventricle * LVEF 60%. * Normal LV chamber size, wall thickness and function. * Mild left ventricular diastolic dysfunction. Right Ventricle * Normal right ventricular structure and function. Left Atrium * Normal left atrial size. Right Atrium * Normal right atrial size. Aortic Valve * Trileaflet aortic valve. * Mildly sclerotic aortic valve leaflets. * No aortic regurgitation. * No aortic stenosis. Mitral Valve * Normal mitral valve structure and function. * No mitral regurgitation. * No mitral stenosis. Tricuspid Valve * Normal tricuspid valve structure and function. * Trace tricuspid regurgitation. * No evidence of pulmonary hypertension. Pulmonic Valve * Pulmonic valve is not well visualized. * No pulmonic regurgitation. Aorta * Normally sized aortic root. Pericardium * The pericardium appears normal. IVC * Normal IVC dimensions and inspiratory collapse. Pulmonary Artery * Normal visualized portions of the main pulmonary artery. Exam - Constitutional Vitals: Temp Pulse Resp BP Pulse Ox 98.6 F 99 17 135/73 98 06/11/18 07:55 06/11/18 07:55 06/11/18 07:55 06/11/18 07:55 06/11/18 08:58 General appearance: average body habitus, cooperative, no acute distress - Head Head exam: Present: atraumatic, normal inspection, normocephalic - Eye Eye exam: Present: EOMI, normal appearance, PERRL Pupils: Present: normal accommodation Additional comments: No subconjunctival hemorrhage noted. - ENT ENT exam: Present: mucous membranes moist - Neck Neck exam: Present: normal inspection - Respiratory Respiratory exam: Present: wheezes (Faint expiratory wheezes noted throughout.) . Absent: rales, respiratory distress, rhonchi, tachypnea - Cardiovascular Cardiovascular exam: Present: irregular rhythm. Absent: tachycardia - GI/Abdominal GI/Abdominal exam: Present: distended, normal bowel sounds, soft. Absent: tenderness - Extremities Exam Extremities exam: Present: normal inspection, pedal edema (Trace bilateral lower extremities). Absent: joint swelling, tenderness - Back Exam Back exam: Present: normal inspection. Absent: paraspinal tenderness, vertebral tenderness - Neurological Exam Neurological exam: Present: alert, oriented X3, no focal deficits - Psychiatric Psychiatric exam: Present: normal affect, normal mood - Skin Skin exam: Present: dry, intact, normal color, warm Additional comments: No endocarditis stigmata noted. Consult Discharge Plan - Plan Referrals: Aneta Leal MD [Primary Care Provider] - Prescriptions: Rivaroxaban [Xarelto] 20 mg PO DAILY 30 Days #30 tablet - Attending Attestation I examined this patient and my medical decision-making was reviewed with the Resident Physician. I agree with the documented findings, disposition and treatment plan as described except to the extent set forth below.
[2018-06-11] MEDS: Budesonide/Formoterol 160/4.5 1 PUFF INH IH SCH ×2 (10:36→22:08)
--- NOTE | 2018-06-11 11:39 | Gastroenterology Consult Note ---
<MartinezJohn reeder Paulo - Last Filed: 06/11/18 11:36> Date of Encounter: 06/11/18 Time of Encounter: 10:15 - Assessment and plan (1) Dysphagia Current Visit: Yes Status: Acute Assessment and plan: Patient with difficulty swallowing solids. Plan for EGD tomorrow with possible dilation to r/o structural causes such as stricture, tumor,etc vs esophageal motility disorder. Keep NPO at midnight. Hold Heparin drip starting at 08:00AM. Qualifiers: Dysphagia type: unspecified Qualified Code(s): R13.10 - Dysphagia, unspecified (2) GERD (gastroesophageal reflux disease) Current Visit: Yes Status: Acute Assessment and plan: Continue PPI and plan for EGD tomorrow. Patient educated regarding lifestyle modifications including: (1) avoidance of foods that may precipitate reflux (eg, coffee, alcohol, chocolate, fatty foods) . (2) avoidance of acidic foods that may precipitate heartburn (eg, citrus, carbonated drinks, spicy foods). (3) adoption of behaviors that may reduce esophageal acid exposure (see weight loss, smoking cessation, raising the head of the bed, and avoiding recumbency for 2-3 hours after meals). Qualifiers: Esophagitis presence: esophagitis presence not specified Qualified Code(s) : K21.9 - Gastro-esophageal reflux disease without esophagitis (3) Pneumonia Current Visit: Yes Status: Acute Assessment and plan: Pulmonology and ID have been consulted. Qualifiers: Pneumonia type: due to unspecified organism Laterality: unspecified laterality Lung location: unspecified part of lung Qualified Code(s): J18.9 - Pneumonia, unspecified organism (4) Sepsis Current Visit: Yes Status: Acute Assessment and plan: ID consulted. Qualifiers: Sepsis type: methicillin resistant Staphylococcus aureus Qualified Code(s) : A41.02 - Sepsis due to Methicillin resistant Staphylococcus aureus - Time Spent With Patient Total time spent is greater than 50% in coordination of care (as documented) at patient's floor/unit and/or counseling patient: GI History of Present Illness - Data of Consult Patient: new to practice Consult date: 06/11/18 Requesting Physician: Declan Clemons MD - Consult Narrative Reason for consult: Dysphagia, GERD History of present illness: Ms. Alvares is a 73 year old female with PMHx of COPD on home O2 and HTN who was seen on 06/05/18 for shortness of breath and was diagnosed to have pneumonia based on chest x-ray and CTA and was discharged on Levaquin. Patient's blood culture were drawn at the time of each came positive for MRSA and patient was called back to ER. Pt returned to ER on 06/09 and was admitted for pneumonia, MRSA bacteremia, cavitary lesion of right lung, and sepsis. She was started on IV antibiotics and Pulmonology and ID were consulted. She developed Afib with RVR during this hospitalization. Yesterday, she reported long-standing history of heartburn and that she is having difficulty swallowing solids. On admission Hgb 11.5 and this AM Hgb 9.8. She denies any melena or hematochezia. CT chest concerning for right upper lobe abscess related to MRSA pneumonia and right middle lobe cavitary lesion, and mild circumferential thickening of distal esophagus, no distention. Procedures: Colonoscopy 07/03/2011 Dr. Potter: Colonoscopy to descending colon due to tortuous colon. Hyperplastic polyp. NSAIDs: ASA Anticoagulation: None Past Med Surg Social Fam HX - Past Medical History Medical history: COPD, hypertension Additional medical history: mass in right lung, hyponatremia, hypokalemia, RLL PN, vitamin D deficiency, OA, carpal tunnel, oxygen dependent Psychiatric history: no psych history - Past Surgical History Surgical History: cholecystectomy, hysterectomy Additional surgical history: BLADDER TUCK, HERNIA REPAIR, left arm - Social History Smoking Status: Former smoker Smokeless Tobacco Status: No Alcohol use: none Drug use: none - Family History Father Hx Family Respiratory Disorders: No - Gastrointestinal Gastrointestinal: Present: as per HPI - Constitutional Constitutional: as per HPI - EENT Eyes: as per HPI Ears: Present: as per HPI Nose, mouth and throat: Present: as per HPI - Cardiovascular Cardiovascular ROS: Present: as per HPI - Respiratory Respiratory IM: Present: as per HPI - Genitourinary Genitourinary: Absent: change in color, Urinary frequency - Neurological ROS Neurological GI: Present: as per HPI - Hematologic/Lymphatic Hematologic/Lymphatic pediatric: Present: as per HPI - Musculoskeletal Musculoskeletal ROS GI: Present: as per HPI - Integumentary Integumentary GI: Present: as per HPI - Psychiatric ROS Psychiatric GI: Present: as per HPI - Endocrine Endocrine IM: Present: as per HPI - Constitutional Vitals: Temp Pulse Resp BP Pulse Ox 98.3 F 87 18 139/82 97 06/11/18 11:29 06/11/18 11:29 06/11/18 11:29 06/11/18 11:29 06/11/18 11:29 General appearance: Present: cooperative, A&O X 3, no acute distress, answers questions appropriately - Head Head exam: Present: atraumatic, normocephalic - Eye Eye exam: Present: normal appearance, sclera anicteric - ENT ENT exam: Present: mucous membranes moist - Neck Neck exam general surgery: Present: normal inspection, trachea midline - Respiratory Respiratory exam: Present: decreased breath sounds, wheezes - Cardiovascular Cardiovascular exam: Present: RRR, +S1, +S2 - GI/Abdominal GI/Abdominal exam: Present: soft, no peritoneal signs. Absent: distended, firm , guarding, tenderness - Rectal Rectal exam: Present: deferred - Extremities Exam Extremities exam: Present: warm - Neurological Exam Neurological exam: Present: no focal deficits - Psychiatric Psychiatric exam: Present: normal affect, normal mood - Skin Skin exam: Present: dry, intact, normal color, warm Results - Labs CBC & Chem 7: 06/11/18 05:24 06/11/18 05:24 Labs: Last Result Calcium 8.5 mg/dL (8.6-10.3) L 06/11/18 05:24 Troponin I 0.05 ng/mL (< 0.04) H* 06/10/18 09:57 Entire Visit Hgb 9.8 g/dL (11.5-15.4) L 06/11/18 05:24 Hct 31.4 % (35.3-44.9) L 06/11/18 05:24 PT 12.1 Seconds (9.4-12.1) 06/10/18 12:42 Total Bilirubin 0.3 mg/dL (0.3-1.0) 06/09/18 12:22 AST 19 Units/L (13-39) 06/09/18 12:22 ALT 19 Units/L (7-52) 06/09/18 12:22 - ABG ABG results: ABG ABG pH 7.31 pH Units (7.32-7.45) L 06/10/18 04:29 ABG pCO2 78 mmHg (35-45) H* 06/10/18 04:29 ABG pO2 125 mmHg (85-104) H 06/10/18 04:29 ABG O2 Saturation 98 % (95-98) 06/10/18 04:29 PT/INR, D-dimer PT 12.1 Seconds (9.4-12.1) 06/10/18 12:42 - Impressions Impressions Chest CT 06/10/18 12:10 IMPRESSION: 1. Emphysema and bronchiectasis. 2. Bilateral multifocal peribronchial nodular masslike consolidation which has progressed in the left upper lobe consistent with an infectious etiology. The right middle lobe nodule identified on the prior exam has undergone cavitation. Stable complex masslike consolidation of the medial right middle lobe measuring 8.3 cm with complex internal air which may relate to a combination of bronchiectasis and cavitation. Given the rapidity of the changes the findings most likely represent an infectious etiology. Other consideration includes metastatic disease or pulmonary lymphoma. 3. New mild bilateral pleural effusions with no pneumothorax. 4. Mediastinal lymphadenopathy. D/ / 06/10/2018 16:05:13 Momo Portillo MD / Johana Menjivar Interpreting Provider: Momo Portillo MD Echocardiogram 06/10/18 22:07 Impressions: LVEF 60%. Normal LV chamber size, wall thickness and function. Mild left ventricular diastolic dysfunction. Normal right ventricular structure and function. No evidence of pulmonary hypertension. No significant valvular dysfunction. No obvious vegetations visualized. Consider HARIS if clinically indicated. Left Ventricular Wall Motion: Rest Echo Findings All wall segments showed normal motion. Findings: Study Quality * Technically sub-optimal due to poor echocardiographic windows. ECG Findings * Normal sinus rhythm. Left Ventricle * LVEF 60%. * Normal LV chamber size, wall thickness and function. * Mild left ventricular diastolic dysfunction. Right Ventricle * Normal right ventricular structure and function. Left Atrium * Normal left atrial size. Right Atrium * Normal right atrial size. Aortic Valve * Trileaflet aortic valve. * Mildly sclerotic aortic valve leaflets. * No aortic regurgitation. * No aortic stenosis. Mitral Valve * Normal mitral valve structure and function. * No mitral regurgitation. * No mitral stenosis. Tricuspid Valve * Normal tricuspid valve structure and function. * Trace tricuspid regurgitation. * No evidence of pulmonary hypertension. Pulmonic Valve * Pulmonic valve is not well visualized. * No pulmonic regurgitation. Aorta * Normally sized aortic root. Pericardium * The pericardium appears normal. IVC * Normal IVC dimensions and inspiratory collapse. Pulmonary Artery * Normal visualized portions of the main pulmonary artery. Consult Discharge Plan - Plan Referrals: Aneta Leal MD [Primary Care Provider] - Prescriptions: Rivaroxaban [Xarelto] 20 mg PO DAILY 30 Days #30 tablet <Nubia Portillo - Last Filed: 06/11/18 14:08> Date of Encounter: 06/11/18 Time of Encounter: 13:00 - Time Spent With Patient Total time spent is greater than 50% in coordination of care (as documented) at patient's floor/unit and/or counseling patient: GI History of Present Illness - Data of Consult Requesting Physician: Declan Clemons MD - Consult Narrative History of present illness: Ms. Alvares is a 73 year old female - Constitutional Vitals: Temp Pulse Resp BP Pulse Ox 98.3 F 87 18 139/82 97 06/11/18 11:29 06/11/18 11:29 06/11/18 11:29 06/11/18 11:29 06/11/18 11:29 Results - Labs CBC & Chem 7: 06/11/18 05:24 06/11/18 05:24 Labs: Last Result Calcium 8.5 mg/dL (8.6-10.3) L 06/11/18 05:24 Troponin I 0.05 ng/mL (< 0.04) H* 06/10/18 09:57 Entire Visit Hgb 9.8 g/dL (11.5-15.4) L 06/11/18 05:24 Hct 31.4 % (35.3-44.9) L 06/11/18 05:24 PT 12.1 Seconds (9.4-12.1) 06/10/18 12:42 Total Bilirubin 0.3 mg/dL (0.3-1.0) 06/09/18 12:22 AST 19 Units/L (13-39) 06/09/18 12:22 ALT 19 Units/L (7-52) 06/09/18 12:22 - ABG ABG results: ABG ABG pH 7.31 pH Units (7.32-7.45) L 06/10/18 04:29 ABG pCO2 78 mmHg (35-45) H* 06/10/18 04:29 ABG pO2 125 mmHg (85-104) H 06/10/18 04:29 ABG O2 Saturation 98 % (95-98) 06/10/18 04:29 PT/INR, D-dimer PT 12.1 Seconds (9.4-12.1) 06/10/18 12:42 - Impressions Impressions Chest CT 06/10/18 12:10 IMPRESSION: 1. Emphysema and bronchiectasis. 2. Bilateral multifocal peribronchial nodular masslike consolidation which has progressed in the left upper lobe consistent with an infectious etiology. The right middle lobe nodule identified on the prior exam has undergone cavitation. Stable complex masslike consolidation of the medial right middle lobe measuring 8.3 cm with complex internal air which may relate to a combination of bronchiectasis and cavitation. Given the rapidity of the changes the findings most likely represent an infectious etiology. Other consideration includes metastatic disease or pulmonary lymphoma. 3. New mild bilateral pleural effusions with no pneumothorax. 4. Mediastinal lymphadenopathy. D/ / 06/10/2018 16:05:13 Momo Portillo MD / Johana Menjivar Interpreting Provider: Momo Portillo MD Echocardiogram 06/10/18 22:07 Impressions: LVEF 60%. Normal LV chamber size, wall thickness and function. Mild left ventricular diastolic dysfunction. Normal right ventricular structure and function. No evidence of pulmonary hypertension. No significant valvular dysfunction. No obvious vegetations visualized. Consider HARIS if clinically indicated. Left Ventricular Wall Motion: Rest Echo Findings All wall segments showed normal motion. Findings: Study Quality * Technically sub-optimal due to poor echocardiographic windows. ECG Findings * Normal sinus rhythm. Left Ventricle * LVEF 60%. * Normal LV chamber size, wall thickness and function. * Mild left ventricular diastolic dysfunction. Right Ventricle * Normal right ventricular structure and function. Left Atrium * Normal left atrial size. Right Atrium * Normal right atrial size. Aortic Valve * Trileaflet aortic valve. * Mildly sclerotic aortic valve leaflets. * No aortic regurgitation. * No aortic stenosis. Mitral Valve * Normal mitral valve structure and function. * No mitral regurgitation. * No mitral stenosis. Tricuspid Valve * Normal tricuspid valve structure and function. * Trace tricuspid regurgitation. * No evidence of pulmonary hypertension. Pulmonic Valve * Pulmonic valve is not well visualized. * No pulmonic regurgitation. Aorta * Normally sized aortic root. Pericardium * The pericardium appears normal. IVC * Normal IVC dimensions and inspiratory collapse. Pulmonary Artery * Normal visualized portions of the main pulmonary artery. - Attending Attestation I have personally performed a face to face evaluation on this patient. I have reviewed and agree with the care plan. History and Exam by me shows: Patient 73-year-old female with multiple comorbidities now with dysphagia and abnormal CT of the esophagus showing thickening most probably abnormal CT is due to erosive esophagitis but rule out other etiology. On examination she is alert and awake denies any tenderness on palpation of the epigastric area. Assessment: Dysphagia with abnormal CT of the esophagus recommendation is EGD in the morning after holding heparin for at least 6 hour prior to the procedure
--- NOTE | 2018-06-11 15:16 | Cardiology Progress Note ---
Date of Encounter: 06/11/18 Time of Encounter: 15:12 Assessment and Plan (1) New onset a-fib Current Visit: Yes Status: Acute Atrial fibrillation with RVR this admit in the setting of PNA and bacteremia. EKG shows atrial fibrillation with RVR, HR 133. Converted to NSR. C/o palpitations for the last 5 years. Continue lopressor. TTE- LVEF 60%. Normal LV chamber size, wall thickness and function. Mild left ventricular diastolic dysfunction. Normal right ventricular structure and function. No evidence of pulmonary hypertension. No significant valvular dysfunction. No obvious vegetations visualized. Heparin gtt continued for now. Awaiting bronchoscopy tomorrow. Okay to hold heparin gtt for procedure. CHADS VASc 2 for HTN and female. AC with coumadin or NOAC recommended. Noted hospitalist torres checking xarelto. Start xarelto prior to d/c. Please Call with changes. Cardiology signing off. Out-pt f/u will be coordinated. (2) Elevated troponin Current Visit: Yes Status: Acute Mild troponin elevation 0.09, 0.07, 0.04, 0.05. Demand ischemia in the setting of sepsis, afib with RVR. TTE shows preserved EF. States stress test two years ago that was negative. Denies chest pain. No further testing. Noted some edema yesterday. No CHF on TTE. Reports improvement with IV lasix. Caution with IV fluids. Continue to monitor. Discussion w patient/family: The assessment and plan as outlined above was discussed with the patient and/or family members who expressed understanding and agreement. All questions were answered. Thank you for involving us in the care of your patient. Please call with any questions. Subjective Principal diagnosis: MRSA pneumonia Interval history: Ms. Alvares resting quietly. Denies chest pain or palpitations. Multiple family members at bedside. Objective Vital Signs, Last 4 Hours Temp Pulse Resp BP Pulse Ox 06/11/18 11:29 98.3 F 87 18 139/82 97 General: Conversant, No Apparent Distress HEENT: Atraumatic, Normocephaly, Mucus Membranes Moist Neck: No JVD, Normal carotid pulses Cardiac: Reg Rate and Rhythm, Normal S1 and S2, No Murmur Lungs: Normal Breath Sounds, No Wheeze, Rales, Rhonchi Neuro: Alert and responsive, No focal deficits noted Abdomen: Soft, Non-Tender Skin: No rashes noted on visualized skin Musculoskeletal: No Chest Wall Tenderness Extremities: No Clubbing, No Cyanosis, No Edema, Normal Pulses, Other (Trace edema BLE. ) Results 06/11/18 05:24 06/11/18 05:24 Lab Results 06/11/18 06/11/18 05:24 05:24 WBC 33.4 H* Hgb 9.8 L Hct 31.4 L Plt Count 394 Sodium 140 Potassium 4.0 Chloride 97 L Carbon Dioxide 38 H BUN 12 Creatinine 0.33 L Glucose 178 H Calcium 8.5 L Magnesium 1.8 - Imaging and Cardiology Echo: report reviewed - EKG Interpretation EKG results cardiology: personally reviewed Consult Discharge Plan - Plan Referrals: Aneta Leal MD [Primary Care Provider] - Prescriptions: Rivaroxaban [Xarelto] 20 mg PO DAILY 30 Days #30 tablet
[2018-06-11] MEDS: Heparin 25,000 UNIT/500 ML D5W 25,000 UNIT/500 ML BAG IVC SCH (22:21)
[2018-06-12] MEDS: Ipratropium/Albuterol Neb 3 ML IH SCH ×4 (04:08→21:54)
[2018-06-12 08:07] LABS: Basophils % 0.4 %; Eosinophils % 0.4 %; Lymphocytes % 6.7 %; Monocytes % 6.1 %; Nucleated Red Blood Cells 0.2 /100 WBC (0)
[2018-06-12 08:09] LABS: Basophils # 0.1 K/mcL (0.0-0.2); Eosinophils # 0.1 K/mcL (0.0-0.6); Hematocrit 31.6 % (35.3-44.9); Hemoglobin 9.8 g/dL (11.5-15.4); Immature Granulocytes % 3.6 % (0-4); Lymphocytes # 1.8 K/mcL (0.6-4.6); Mean Corpuscular Hemoglobin 28.4 pg (28.0-33.3); Mean Corpuscular Volume 91.6 fL (83.0-100.0); Mean Platelet Volume 9.4 fL (9.4-12.4); Monocytes # 1.7 K/mcL (0.0-1.3); Neutrophils # 22.7 K/mcL (1.6-8.9); Platelet Count 388 K/mcL (140-400); Red Blood Count 3.45 M/mcL (3.82-4.97); Red Cell Distribution Width 14.1 % (11.5-14.5); Segmented Neutrophils % 82.8 %
[2018-06-12 08:20] LABS: Platelet Estimate Normal (Normal)
[2018-06-12 08:32] LABS: BUN/Creatinine Ratio 32 (6-26); Blood Urea Nitrogen 9 mg/dL (8-23); Calcium 8.6 mg/dL (8.6-10.3); Carbon Dioxide 44 mEq/L (23-29); Chloride 93 mEq/L (98-107); Glucose 123 mg/dL (70-105); Osmolality,Calculated 288 (280-300); Potassium 3.5 mEq/L (3.5-5.1); Sodium 139 mEq/L (136-145); eGFR For Non-African Americans > 60 (> 60)
[2018-06-12] MEDS: Cholecalciferol (D-3) 1,000 UNIT TABLET PO SCH (10:02)
[2018-06-12] MEDS: Loratadine 10 MG TABLET PO SCH (10:02)
[2018-06-12] MEDS: predniSONE 20 MG TABLET PO SCH (10:03)
[2018-06-12] MEDS: Acetaminophen 325 MG TABLET PO PRN ×2 (10:06→17:28)
--- NOTE | 2018-06-12 10:11 | Internal Med Progress Note ---
Hospitalist Progress Note - Encounter Date of Encounter: 06/12/18 Time of Encounter: 10:08 - Subjective Interval History: Patient seen and examined at bedside. Patient no acute events overnight. Patient states that she feels improved from yesterday. Currently NPO for EGD and planes of dry mouth. Patient states she continues to have cough and shortness of breath but this seems to be improving. Patient denies any chest pain, palpitations, nausea, vomiting, diarrhea. - Exam Vitals: Temp Pulse Resp BP Pulse Ox 98.5 F 118 16 124/72 96 06/12/18 06:51 06/12/18 06:51 06/12/18 06:51 06/12/18 06:51 06/12/18 06:51 Exam: Constitutional: No acute distress, Alert Psych: AAO x 3 HEENT: NCAT, EOMI Neck: supple Cardio: irregular rate and rhythm, tachycardic in 100s Resp: coarse bs throughtout with occasional rhonchi RLL, bibalisar crackles Abd: soft, non tender/non distended, positive bowel sounds Extremities: trace edema lower extremities Neuro: no focal deficits appreciated - Assessment and Plan (1) Acute and chronic respiratory failure with hypoxia Current Visit: Yes Status: Acute Assessment and Plan: Patient has acute on chronic respiratory failure with hypoxia and hypercapnia -down to home oxygen dose of 2.5 L via nc -Likely secondary to severe multi focal pneumonia -Maintain pulse ox symmetry between 88-92% -BiPAP if necessary but improving -Prednisone for AECOPD -Pulm/ID following (2) Bacteremia Current Visit: Yes Status: Acute Assessment and Plan: -Severe sepsis secondary to MRSA bactermia and Pneumonia -MRSA in blood culture on 06/05 likely 2/2 MRSA Pneumonia -repeat cultures neagative to date on 06/09 and 06/10 -Sputum with gram positive cocci presumtive staph species -echo reviewed no vegitations -on vanco -ID following (3) Sepsis Current Visit: Yes Status: Acute Assessment and Plan: Severe sepsis likely secondary to pneumonia with cardiac and respiratory end organ damage - CXR with cavitory lesion. 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 - f/u blood cultures - ID following - sputum with gram positive cocci with presumptive staph species - leukocytosis improving (4) Pneumonia Current Visit: Yes Status: Acute Assessment and Plan: as above (5) COPD (chronic obstructive pulmonary disease) Current Visit: Yes Status: Chronic Assessment and Plan: -Acute exacerbation of COPD - continue duonebs, symbicort and spiriva - continue prednisone 40mg for 5 days (6) Elevated troponin Current Visit: Yes Status: Acute Assessment and Plan: - likely from demand - downtrending - cardio following (7) Hypokalemia Current Visit: Yes Status: Resolved Assessment and Plan: - replaced - wnl now - monitor (8) New onset a-fib Current Visit: Yes Status: Acute Assessment and Plan: Patient with new onset A. fib with RVR -Currently in sinus rhythm with tachycardia secondary to sepsis -Chadsvasc of 2 -Discussed anticoagulation with patient and is agreeable, will start xarelto this evening -continue heparin drip unil xarelto this evening -cardio folloing -increase lopressor to 50 bid (9) Dysphagia Current Visit: Yes Status: Acute Assessment and Plan: -pt reports dysphasia with solids - GI consulted - egd today DVT Prophylaxis: hep gtt, xarelto tonight - Summary of Assessment and Plan Summary of Assessment and Plan: Patient improving but remains very high risk for complications and deterioration Will need picc when cultures negative for 48 hours Will need 4-6 weeks IV abx Xarelto will start this evening - Time Spent with Patient Total time spent is greater than 50% in coordination of care (as documented) at patient's floor/unit and/or counseling patient: 25 - 35 minutes Plan of Care Discussed with: patient Internal Medicine: Result - Labs CBC & Chem 7: 06/12/18 07:45 06/12/18 07:45 Labs: Short CBC 06/12/18 Range/Units 07:45 WBC 27.4 H (4.3-11.1) K/mcL Hgb 9.8 L (11.5-15.4) g/dL Hct 31.6 L (35.3-44.9) % Plt Count 388 (140-400) K/mcL Neutrophils # 22.7 H (1.6-8.9) K/mcL BMP 06/12/18 07:45 Sodium 139 Potassium 3.5 Chloride 93 L Carbon Dioxide 44 H* BUN 9 Creatinine 0.28 L Glucose 123 H Calcium 8.6 - ABG Interpretation ABG results: ABG ABG pH 7.31 pH Units (7.32-7.45) L 06/10/18 04:29 ABG pCO2 78 mmHg (35-45) H* 06/10/18 04:29 ABG pO2 125 mmHg (85-104) H 06/10/18 04:29 ABG O2 Saturation 98 % (95-98) 06/10/18 04:29 PT/INR, D-dimer PT 12.1 Seconds (9.4-12.1) 06/10/18 12:42 - Impressions Impressions Echocardiogram 06/10/18 22:07 Impressions: LVEF 60%. Normal LV chamber size, wall thickness and function. Mild left ventricular diastolic dysfunction. Normal right ventricular structure and function. No evidence of pulmonary hypertension. No significant valvular dysfunction. No obvious vegetations visualized. Consider HARIS if clinically indicated. Left Ventricular Wall Motion: Rest Echo Findings All wall segments showed normal motion. Findings: Study Quality * Technically sub-optimal due to poor echocardiographic windows. ECG Findings * Normal sinus rhythm. Left Ventricle * LVEF 60%. * Normal LV chamber size, wall thickness and function. * Mild left ventricular diastolic dysfunction. Right Ventricle * Normal right ventricular structure and function. Left Atrium * Normal left atrial size. Right Atrium * Normal right atrial size. Aortic Valve * Trileaflet aortic valve. * Mildly sclerotic aortic valve leaflets. * No aortic regurgitation. * No aortic stenosis. Mitral Valve * Normal mitral valve structure and function. * No mitral regurgitation. * No mitral stenosis. Tricuspid Valve * Normal tricuspid valve structure and function. * Trace tricuspid regurgitation. * No evidence of pulmonary hypertension. Pulmonic Valve * Pulmonic valve is not well visualized. * No pulmonic regurgitation. Aorta * Normally sized aortic root. Pericardium * The pericardium appears normal. IVC * Normal IVC dimensions and inspiratory collapse. Pulmonary Artery * Normal visualized portions of the main pulmonary artery. Consult Discharge Plan - Plan Referrals: Aneta Leal MD [Primary Care Provider] - Prescriptions: Rivaroxaban [Xarelto] 20 mg PO DAILY 30 Days #30 tablet (3) Sepsis Qualifiers: Sepsis type: methicillin resistant Staphylococcus aureus Qualified Code(s): A41.02 - Sepsis due to Methicillin resistant Staphylococcus aureus (4) Pneumonia Qualifiers: Pneumonia type: due to unspecified organism Laterality: unspecified laterality Lung location: unspecified part of lung Qualified Code(s): J18.9 - Pneumonia, unspecified organism (5) COPD (chronic obstructive pulmonary disease) Qualifiers: COPD type: COPD with acute exacerbation Qualified Code(s): J44.1 - Chronic obstructive pulmonary disease with (acute) exacerbation (9) Dysphagia Qualifiers: Dysphagia type: unspecified Qualified Code(s): R13.10 - Dysphagia, unspecified
[2018-06-12] MEDS ORDERED: Lidocaine -MPF 1% 5 ML AMPUL INFILT ONE (10:33)
[2018-06-12] MEDS: Budesonide/Formoterol 160/4.5 1 PUFF INH IH SCH ×2 (10:47→21:54)
[2018-06-12] MEDS ORDERED: *HR* Propofol 200 MG/20 ML VIAL IVP ONE (13:58)
--- NOTE | 2018-06-12 14:44 | Infectious Disease Progress No ---
Date of Encounter: 06/12/18 Time of Encounter: 11:30 - Assessment and Plan (1) Severe sepsis Current Visit: Yes Status: Acute The patient had 2 sepsis criteria plus lactic acidosis on admission. Likely secondary to bacteremia and pneumonia. Clinically improved. White blood cell count is trending down. Tachycardia has improved. She was afebrile overnight. Blood cultures obtained 06/09/18 is NGTD 1 set. Repeat blood cultures drawn 06/10/18 are NGTD 2 sets. (2) Bacteremia Current Visit: Yes Status: Acute Causative organism: MRSA. Source: Unclear, possibly pneumonia. Blood cultures obtained set was positive. Repeat blood culture obtained set is no growth to date. No endocarditis stigmata noted on exam. Complicated due to the presence of hardware in the right upper extremity. The patient has 2 minor modified [place] criteria. Repeat blood cultures 2 sets drawn 06/10/18 are NGTD. Check rheumatoid factor.--> Elevated at 18. TTE negative for vegetations. The patient will need a HARIS prior to discharge. -- > scheduled for later today. Continue vancomycin IV. Pharmacy to dose. Vanc trough approximately 15. Vanc trough 06/11/18 8. Duration of treatment depends on the clinical picture. Monitor renal function and for drug toxicity and dose adjust antibiotics. Consult VAT for PICC line placement. social services analyst to assist with discharge planning. Additional ID recommendations to follow pending culture results and clinical outcomes. (3) Cavitary lesion of lung Current Visit: Yes Status: Acute Location: Right middle lung field. Etiology unclear: Septic emboli versus infectious versus malignancy versus other. Chest x-ray completed 06/09/18 showed a large cavitary infiltrate in the right midlung. No history of TB exposure. Pulmonology consulted. Not planning on bronching the patient at this point as they feel that the CT findings are most likely related to infection. Recommend treating infection and repeating imaging. Continue vancomycin IV. Pharmacy to dose. Goal trough approximately 15. Duration of treatment depends on the clinical picture. Monitor renal function and for drug toxicity and does adjust antibiotics. (4) Pneumonia Current Visit: Yes Status: Acute Location: Bilateral. Causative organism: S. aureus, likely MRSA. CTA chest completed 06/05/18 showed airspace consolidation in the right lower lobe , likely related to pneumonia as well as a masslike consolidation in the right middle lobe, likely related to pneumonia. Chest x-ray completed 06/09/18 showed worsening bilateral lung infiltrates, concerning for multifocal pneumonia. Repeat CT of the chest completed 06/10/18 showed findings consistent with emphysema and bronchiectasis as well as bilateral multifocal peribronchial nodular masslike consolidation which has progressed in the left upper lobe consistent with an infectious etiology. The right middle lobe nodule identified on the prior exam has undergone cavitation. There is a stable complex masslike consolidation in the medial right middle lobe measuring 8.3 cm with complex internal air which may relate to combination of bronchiectasis and cavitation. Given the rapidity of the changes, the findings most likely represent an infectious etiology. Sputum culture is positive as above. Check strep pneumococcal and legionella urinary antigens.--> negative. The patient states that she does sometimes choke when she eats, so aspiration is also a possibility. Recommend speech therapy to evaluate. Continue vancomycin. Duration of treatment depends on the clinical picture. Monitor renal function and for drug toxicity and dose-adjust antibiotics. Qualifiers: Pneumonia type: due to methicillin-resistant Staphylococcus aureus (MRSA) Laterality: unspecified laterality Lung location: unspecified part of lung Qualified Code(s): J15.212 - Pneumonia due to Methicillin resistant Staphylococcus aureus (5) Acute and chronic respiratory failure with hypoxia Current Visit: Yes Status: Acute Likely secondary to pneumonia and possible cavitary lung lesion. Was noted to be hypoxic with SPO2 of 66% on arrival to the emergency department. Required BiPAP for short period of time, but is currently on high flow nasal cannula. Refuses BIPAP. Continue management per the primary and pulmonary teams. (6) Elevated troponin Current Visit: Yes Status: Acute Likely demand ischemia from sepsis. Continue to trend. Cardiology consulted. Further workup and management per the primary and cardiology teams. (7) Hypokalemia Current Visit: Yes Status: Resolved Likely secondary to poor by mouth intake. Resolved. (8) New onset a-fib Current Visit: Yes Status: Acute Likely secondary to sepsis. Cardiology consulted. (9) Dysphagia Current Visit: Yes Status: Acute Etiology unclear. Recommend speech consult to assist for aspiration. GI consulted and planning for EGD later today. Qualifiers: Dysphagia type: unspecified Qualified Code(s): R13.10 - Dysphagia, unspecified (10) COPD (chronic obstructive pulmonary disease) Current Visit: Yes Status: Chronic Qualifiers: COPD type: COPD with acute exacerbation Qualified Code(s): J44.1 - Chronic obstructive pulmonary disease with (acute) exacerbation - Subjective Interval history: Patient seen and examined. No acute events noted overnight. Patient states overall she feels a little bit better today. Reports dyspnea on exertion and a moist productive cough. Denies any fevers or chills or rigors. Denies chest pain. Denies nausea or vomiting or diarrhea. Denies abdominal pain or urinary complaints. States her appetite a little bit better today. Denies any skin rashes or oral lesions. She does still complain of thoracic back pain. HARIS scheduled for later today. Infect Dis PN-Objective Data - Labs CBC & Chem 7: 06/13/18 05:10 06/13/18 05:10 Labs: Laboratory Results - last 24 hr 06/12/18 06/12/18 06/12/18 07:45 07:45 12:37 WBC 27.4 H RBC 3.45 L Hgb 9.8 L Hct 31.6 L MCV 91.6 MCH 28.4 MCHC 31.0 L RDW 14.1 Plt Count 388 MPV 9.4 Immature Gran % 3.6 Seg Neutrophils % 82.8 Lymphocytes % 6.7 Monocytes % 6.1 Eosinophils % 0.4 Basophils % 0.4 Neutrophils # 22.7 H Lymphocytes # 1.8 Monocytes # 1.7 H Eosinophils # 0.1 Basophils # 0.1 Nucleated RBCs/100 WBC 0.2 H Platelet Estimate Normal Heparin Anti-Xa, Unfract 0.02 L Sodium 139 Potassium 3.5 Chloride 93 L Carbon Dioxide 44 H* BUN 9 Creatinine 0.28 L Est GFR ( Amer) > 60 Est GFR (Non-Af Amer) > 60 BUN/Creatinine Ratio 32 H Glucose 123 H Calculated Osmolality 288 Calcium 8.6 Cultures: Cultures 06/10/18 19:45 Sputum Culture - Preliminary Sputum Staphylococcus aureus 06/10/18 19:45 Legionella Antigen - Final Urine,Clean Catch Streptococcus pneumoniae Antigen (M - Final 06/10/18 14:00 Blood Culture - Preliminary Peripheral Venipuncture Culture is incubating and being continuously monitored for growth. Final report to follow. 06/10/18 14:10 Blood Culture - Preliminary Peripheral Venipuncture Culture is incubating and being continuously monitored for growth. Final report to follow. Exam - Constitutional Vitals: Temp Pulse Resp BP Pulse Ox 97.6 F 88 16 108/56 94 06/12/18 11:42 06/12/18 11:42 06/12/18 11:42 06/12/18 11:42 06/12/18 11:42 General appearance: average body habitus, cooperative, no acute distress - Head Head exam: Present: atraumatic, normal inspection, normocephalic - Eye Eye exam: Present: EOMI, normal appearance, PERRL Pupils: Present: normal accommodation Additional comments: No subconjunctival hemorrhage noted. - ENT ENT exam: Present: mucous membranes moist - Neck Neck exam: Present: normal inspection - Respiratory Respiratory exam: Present: CTAB. Absent: decreased breath sounds, rales, respiratory distress, rhonchi, wheezes - Cardiovascular Cardiovascular exam: Present: RRR, +S1, +S2 - GI/Abdominal GI/Abdominal exam: Present: normal bowel sounds, soft. Absent: distended, tenderness - Extremities Exam Extremities exam: Present: normal inspection. Absent: joint swelling, pedal edema, tenderness - Neurological Exam Neurological exam: Present: alert, oriented X3, no focal deficits - Psychiatric Psychiatric exam: Present: normal affect, normal mood - Skin Skin exam: Present: dry, intact, normal color, warm Additional comments: No endocarditis stigmata noted. Consult Discharge Plan - Plan Referrals: Aneta Leal MD [Primary Care Provider] - Prescriptions: Rivaroxaban [Xarelto] 20 mg PO DAILY 30 Days #30 tablet - Attending Attestation I examined this patient and my medical decision-making was reviewed with the Resident Physician. I agree with the documented findings, disposition and treatment plan as described except to the extent set forth below.
--- NOTE | 2018-06-12 14:52 | Anesthesia Evaluation PreOp ---
Date of Encounter: 06/12/18 Time of Encounter: 14:50 - Past History Planned Operation: EGD Cardiac History: HTN, Hyperlipidemia, Arrhythmia (possible newly diagnosed a fib. Denies angina, chf or [place]) Pulmonary History: Former smoker, COPD (pneumonia,), Other (Upper lobe lung mass ) [employer] History: Denies Any Significant HX Other Medical History: GERD, Other (hyponatremia) Anesthesia History: No Prior Anesthetic Complications, Past Anesthesia Alcohol Use: none Drug use: none Medications and Allergies Albuterol Sulfate [Proair Respiclick] 2 puff IH 1-2XD PRN 10/24/15 [History] Fexofenadine/Pseudoephedrine [Lay-D 12 Hour Tablet] 1 each PO DAILY [History] Oxygen [Oxygen] 2 l IH DAILY 04/04/16 [History] Aspirin 325 mg PO DAILY 10/26/16 [History] Calcium Carbonate/Vitamin D3 [Calcium 500 + Vit D Caplet] 1 each PO BID [History] Declo-3/Dha/Epa/Fish Oil [Fish Oil 1,000 mg Softgel] 1,000 mg PO DAILY 10/26/16 [History] Tiotropium [place] [Spiriva] 1 cap PO DAILY 10/26/16 [History] Vitamin E 1,000 unit PO DAILY 10/26/16 [History] Levofloxacin [Levaquin] 750 mg PO DAILY #7 tablet 06/05/18 [Rx] Cetirizine HCl [Zyrtec] 10 mg PO DAILY 06/09/18 [History] Fluticasone/Salmeterol [Advair 500-50 Diskus] 1 puff IH BID 06/09/18 [History] Omeprazole [PriLOSEC] 20 mg PO DAILY 06/09/18 [History] Roflumilast [Daliresp] 500 mcg PO DAILY 06/09/18 [History] Simvastatin [Zocor] 10 mg PO QPM 06/09/18 [History] Rivaroxaban [Xarelto] 20 mg PO DAILY 30 Days #30 tablet 06/11/18 [Rx] 3 Allergy/AdvReac Type Severity Reaction Status Date / Time No Known Allergies Allergy Verified 10/26/16 11:04 - Meds/Allergy Pre-op Review Medications Reviewed: Yes Allergies Reviewed: Yes Beta Blockers on Current Med List: No Anesthesia Results - Labs 06/12/18 07:45 06/12/18 07:45 - Imaging EKG: report reviewed Anesthesia Exam Selected Entries 06/12/18 11:42 Temperature 97.6 F Pulse Rate 88 Respiratory Rate 16 Blood Pressure 108/56 O2 Sat by Pulse Oximetry 94 Weight: 61 kg NPO (# of Hours): over 8 hours - HEENT Pupil (Motor): Pupils equal Mallampati: II Teeth: Edentulous Oral Opening: Greater than 3 - Cardiac Rhythm: Irregular - Pulmonary Breath Sounds: bilateral Clear, bilateral Rhonchi Respiratory Effort: Symmetrical Anesthesia Assess/Plan ASA Score: 3 Modified Jackson Scale for Level of Consciousness: Cooperative, oriented, and tranquil Anesthetic Plan: MAC Monitoring Plan: Standard Monitors (Discussed MAC anesthesia, agreed to proceed. )
[2018-06-12] MEDS ORDERED: Simethicone 80 MG TAB.CHEW PO PRN (15:44)
[2018-06-12] MEDS: Heparin 25,000 UNIT/500 ML D5W 25,000 UNIT/500 ML BAG IVC SCH (17:16)
--- NOTE | 2018-06-12 18:15 | Electrocardiograph Report ---
[address] [place] [address] Test Date: 2018-06-10 Pat Name: Rebekah Alvares Department: 109 Room: 2A26 Gender: F Analyst Business Analysis: : 1945 Requested By: Christina Fairchild Order Number: [id number] Reading MD: Comfort Tinajero Measurements Intervals [place] Rate: 137 P: CT: 0 QRS: 63 QRSD: 86 T: 50 QT: 272 QTc: 352 Interpretive Statements ATRIAL FIBRILLATION WITH RAPID VENTRICULAR RESPONSE ABNORMAL RHYTHM ECG Electronically Signed On 06-12-2018 18:13:44 EDT by Comfort Tinajero
[2018-06-12] MEDS: Fluconazole 100 MG TABLET PO SCH (18:26)
[2018-06-12] MEDS: *HR* Rivaroxaban 10 MG TABLET PO SCH (18:58)
[2018-06-13] MEDS: Ipratropium/Albuterol Neb 3 ML IH SCH ×4 (03:50→23:25)
[2018-06-13 05:53] LABS: Basophils # 0.1 K/mcL (0.0-0.2); Basophils % 0.3 %; Eosinophils # 0.1 K/mcL (0.0-0.6); Eosinophils % 0.3 %; Hematocrit 30.1 % (35.3-44.9); Hemoglobin 9.4 g/dL (11.5-15.4); Immature Granulocytes % 3.6 % (0-4); Lymphocytes # 1.8 K/mcL (0.6-4.6); Lymphocytes % 7.7 %; Mean Corpuscular HGB Conc 31.2 g/dL (31.6-35.5); Mean Corpuscular Hemoglobin 28.7 pg (28.0-33.3); Mean Platelet Volume 9.2 fL (9.4-12.4); Monocytes # 1.2 K/mcL (0.0-1.3); Monocytes % 5.1 %; Neutrophils # 19.7 K/mcL (1.6-8.9); Nucleated Red Blood Cells 0.1 /100 WBC (0); Platelet Count 367 K/mcL (140-400); Red Blood Count 3.27 M/mcL (3.82-4.97)
[2018-06-13 06:13] LABS: BUN/Creatinine Ratio 37 (6-26); Blood Urea Nitrogen 10 mg/dL (8-23); Calcium 8.6 mg/dL (8.6-10.3); Carbon Dioxide 43 mEq/L (23-29); Chloride 94 mEq/L (98-107); Glucose 96 mg/dL (70-105); Magnesium 2.1 mg/dL (1.6-2.6); Osmolality,Calculated 289 (280-300); Potassium 3.7 mEq/L (3.5-5.1); Sodium 140 mEq/L (136-145); eGFR For Non-African Americans > 60 (> 60)
--- NOTE | 2018-06-13 08:43 | Internal Med Progress Note ---
Hospitalist Progress Note - Encounter Date of Encounter: 06/13/18 Time of Encounter: 08:43 - Subjective Interval History: Patient seen and examined at bedside. Patient no acute events overnight. Patient states that she feels okay, slowly improving. EGD with likely king esophagitis yesterday, on fluconazole. PICC placed yesterday. Patient denies any chest pain and admits to continued cough denies any nausea, vomiting, diarrhea. - Exam Vitals: Temp Pulse Resp BP Pulse Ox 97.9 F 98 16 124/69 98 06/13/18 07:31 06/13/18 07:31 06/13/18 07:31 06/13/18 07:31 06/13/18 07:31 Exam: Constitutional: No acute distress, Alert Psych: AAO x 3 HEENT: NCAT, EOMI Neck: supple Cardio: irregular rate and rhythm, HR in 80s-90s Resp: coarse bs throughtout with occasional rhonchi that seems to be improving Abd: soft, non tender/non distended, positive bowel sounds Extremities: trace edema lower extremities Neuro: no focal deficits appreciated - Assessment and Plan (1) Acute and chronic respiratory failure with hypoxia Current Visit: Yes Status: Acute Assessment and Plan: Patient has acute on chronic respiratory failure with hypoxia and hypercapnia -down to home oxygen dose of 2.5-3.5 L via nc -Likely secondary to severe multi focal MRSA pneumonia -Maintain pulse ox symmetry between 88-92% -Prednisone for AECOPD continue 2 additional days -ID following (2) Bacteremia Current Visit: Yes Status: Acute Assessment and Plan: -Severe sepsis secondary to MRSA bactermia and Pneumonia -MRSA in blood culture on 06/05 likely 2/2 MRSA Pneumonia -repeat cultures neagative to date on 06/09 and 06/10 -Sputum with gram positive cocci presumtive staph species -echo reviewed no vegitations -on vanco -ID following -picc placed, will need alf abx (3) Sepsis Current Visit: Yes Status: Acute Assessment and Plan: Severe sepsis likely secondary to pneumonia with cardiac and respiratory end organ damage - sepsis resolved - CXR with cavitory lesion. 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 - f/u blood cultures repeat cx ngtd - ID following - sputum with staph aureus - leukocytosis improving (4) Pneumonia Current Visit: Yes Status: Acute Assessment and Plan: as above (5) COPD (chronic obstructive pulmonary disease) Current Visit: Yes Status: Chronic Assessment and Plan: -Acute exacerbation of COPD - continue duonebs, symbicort and spiriva - continue prednisone 40mg for 5 days (6) Elevated troponin Current Visit: Yes Status: Acute Assessment and Plan: - likely from demand - downtrending - cardio signed off (7) Hypokalemia Current Visit: Yes Status: Resolved Assessment and Plan: - replaced - wnl now - monitor (8) New onset a-fib Current Visit: Yes Status: Acute Assessment and Plan: Patient with new onset A. fib with RVR -HR 80s-90s -Chadsvasc of 2 -Discussed anticoagulation with patient and is agreeable -continue xarelto -increase lopressor to 75 bid (9) Dysphagia Current Visit: Yes Status: Acute Assessment and Plan: -pt reports dysphasia with solids - GI consulted - egd with likely candidia esophogitis - fluconazole for 10 days DVT Prophylaxis: xarelto - Summary of Assessment and Plan Summary of Assessment and Plan: Set up abx today; anticipate dc to ecf tomorrow - Time Spent with Patient Total time spent is greater than 50% in coordination of care (as documented) at patient's floor/unit and/or counseling patient: 25 - 35 minutes Plan of Care Discussed with: patient Internal Medicine: Result - Labs CBC & Chem 7: 06/13/18 05:10 06/13/18 05:10 Labs: Short CBC 06/13/18 Range/Units 05:10 WBC 23.7 H (4.3-11.1) K/mcL Hgb 9.4 L (11.5-15.4) g/dL Hct 30.1 L (35.3-44.9) % Plt Count 367 (140-400) K/mcL Neutrophils # 19.7 H (1.6-8.9) K/mcL BMP 06/12/18 06/13/18 07:45 05:10 Sodium 139 140 Potassium 3.5 3.7 Chloride 93 L 94 L Carbon Dioxide 44 H* 43 H* BUN 9 10 Creatinine 0.28 L 0.27 L Glucose 123 H 96 Calcium 8.6 8.6 - ABG Interpretation ABG results: ABG ABG pH 7.31 pH Units (7.32-7.45) L 06/10/18 04:29 ABG pCO2 78 mmHg (35-45) H* 06/10/18 04:29 ABG pO2 125 mmHg (85-104) H 06/10/18 04:29 ABG O2 Saturation 98 % (95-98) 06/10/18 04:29 PT/INR, D-dimer PT 12.1 Seconds (9.4-12.1) 06/10/18 12:42 - Impressions Impressions Chest X-Ray 06/12/18 19:07 IMPRESSION: Appropriate right PICC placement. Stable bilateral multifocal nodular opacities, some of which demonstrate cavitation and concerning for atypical infectious process with other etiologies not excluded. D/ / Umesh Galeano / Umesh Galeano Interpreting Provider: Umesh Galeano Consult Discharge Plan - Plan Referrals: Aneta Leal MD [Primary Care Provider] - Prescriptions: Rivaroxaban [Xarelto] 20 mg PO DAILY 30 Days #30 tablet (3) Sepsis Qualifiers: Sepsis type: methicillin resistant Staphylococcus aureus Qualified Code(s): A41.02 - Sepsis due to Methicillin resistant Staphylococcus aureus (4) Pneumonia Qualifiers: Pneumonia type: due to methicillin-resistant Staphylococcus aureus (MRSA) Laterality: unspecified laterality Lung location: unspecified part of lung Qualified Code(s): J15.212 - Pneumonia due to Methicillin resistant Staphylococcus aureus (5) COPD (chronic obstructive pulmonary disease) Qualifiers: COPD type: COPD with acute exacerbation Qualified Code(s): J44.1 - Chronic obstructive pulmonary disease with (acute) exacerbation (9) Dysphagia Qualifiers: Dysphagia type: unspecified Qualified Code(s): R13.10 - Dysphagia, unspecified
[2018-06-13] MEDS: predniSONE 20 MG TABLET PO SCH (09:13)
[2018-06-13] MEDS: Cholecalciferol (D-3) 1,000 UNIT TABLET PO SCH (09:13)
[2018-06-13] MEDS: Loratadine 10 MG TABLET PO SCH (09:14)
[2018-06-13] MEDS: Fluconazole 100 MG TABLET PO SCH (09:14)
[2018-06-13] MEDS: Acetaminophen 325 MG TABLET PO PRN (09:19)
--- NOTE | 2018-06-13 09:27 | Infectious Disease Progress No ---
Date of Encounter: 06/13/18 Time of Encounter: 09:25 - Assessment and Plan (1) Severe sepsis Current Visit: Yes Status: Acute The patient had 2 sepsis criteria plus lactic acidosis on admission. Likely secondary to bacteremia and pneumonia. Clinically improved. White blood cell count is trending down. Tachycardia has resolved. She was afebrile overnight. Blood cultures obtained 06/09/18 is NGTD 1 set. Repeat blood cultures drawn 06/10/18 are NGTD 2 sets. (2) Bacteremia Current Visit: Yes Status: Acute Causative organism: MRSA. Source: Unclear, possibly pneumonia. Blood cultures obtained set was positive. Repeat blood culture obtained set is no growth to date. No endocarditis stigmata noted on exam. Complicated due to the presence of hardware in the right upper extremity. The patient has 2 minor modified [place] criteria. Repeat blood cultures 2 sets drawn 06/10/18 are NGTD. Check rheumatoid factor.--> Elevated at 18. TTE negative for vegetations. The patient will need a HARIS prior to discharge. Discussed with the primary team. Continue vancomycin IV. Pharmacy to dose. Vanc trough approximately 15. Vanc trough 06/11/18 8. Duration of treatment depends on the clinical picture, likely 4-6 weeks, depending on the HARIS results. Monitor renal function and for drug toxicity and dose adjust antibiotics. PICC placed 06/12/18. director clinical information services to assist with discharge planning. Will need weekly CBC, BUN/Cr, and Vanc trough. Will need weekly PICC care per protocol. Follow up with ID 07/02/18 at 1440. (3) Cavitary lesion of lung Current Visit: Yes Status: Acute Location: Right middle lung field. Etiology unclear: Septic emboli versus infectious versus malignancy versus other. Chest x-ray completed 06/09/18 showed a large cavitary infiltrate in the right midlung. No history of TB exposure. Pulmonology consulted. Not planning on bronching the patient at this point as they feel that the CT findings are most likely related to infection. Recommend treating infection and repeating imaging. Continue vancomycin IV. Pharmacy to dose. Goal trough approximately 15. Duration of treatment depends on the clinical picture. Monitor renal function and for drug toxicity and does adjust antibiotics. (4) Pneumonia Current Visit: Yes Status: Acute Location: Bilateral. Causative organism: S. aureus, likely MRSA. CTA chest completed 06/05/18 showed airspace consolidation in the right lower lobe , likely related to pneumonia as well as a masslike consolidation in the right middle lobe, likely related to pneumonia. Chest x-ray completed 06/09/18 showed worsening bilateral lung infiltrates, concerning for multifocal pneumonia. Repeat CT of the chest completed 06/10/18 showed findings consistent with emphysema and bronchiectasis as well as bilateral multifocal peribronchial nodular masslike consolidation which has progressed in the left upper lobe consistent with an infectious etiology. The right middle lobe nodule identified on the prior exam has undergone cavitation. There is a stable complex masslike consolidation in the medial right middle lobe measuring 8.3 cm with complex internal air which may relate to combination of bronchiectasis and cavitation. Given the rapidity of the changes, the findings most likely represent an infectious etiology. Sputum culture is positive as above. Check strep pneumococcal and legionella urinary antigens.--> negative. The patient states that she does sometimes choke when she eats, so aspiration is also a possibility. Recommend speech therapy to evaluate. Continue vancomycin. Duration of treatment depends on the clinical picture. Monitor renal function and for drug toxicity and dose-adjust antibiotics. Qualifiers: Pneumonia type: due to methicillin-resistant Staphylococcus aureus (MRSA) Laterality: unspecified laterality Lung location: unspecified part of lung Qualified Code(s): J15.212 - Pneumonia due to Methicillin resistant Staphylococcus aureus (5) Acute and chronic respiratory failure with hypoxia Current Visit: Yes Status: Acute Likely secondary to pneumonia and possible cavitary lung lesion. Was noted to be hypoxic with SPO2 of 66% on arrival to the emergency department. Required BiPAP for short period of time, but is currently on high flow nasal cannula. Refuses BIPAP. Continue management per the primary and pulmonary teams. (6) Elevated troponin Current Visit: Yes Status: Acute Likely demand ischemia from sepsis. Continue to trend. Cardiology consulted and signed off. Further workup and management per the primary and cardiology teams. (7) Hypokalemia Current Visit: Yes Status: Resolved Likely secondary to poor by mouth intake. Resolved. (8) New onset a-fib Current Visit: Yes Status: Acute Likely secondary to sepsis. Cardiology consulted. (9) Dysphagia Current Visit: Yes Status: Acute Etiology unclear. Recommend speech consult to assist for aspiration. GI consulted. Status post EGD 06/12/18. Noted to have large hiatal hernia, reflux esophagitis, and likely esophageal candidiasis. Pathology is pending. Further management per the GI team. Qualifiers: Dysphagia type: unspecified Qualified Code(s): R13.10 - Dysphagia, unspecified (10) COPD (chronic obstructive pulmonary disease) Current Visit: Yes Status: Chronic Qualifiers: COPD type: COPD with acute exacerbation Qualified Code(s): J44.1 - Chronic obstructive pulmonary disease with (acute) exacerbation (11) Esophageal candidiasis Current Visit: Yes Status: Acute Noted on EGD. Recommend loading dose of fluconazole 400mg PO x 1 followed by 14-21 days of fluconazole 200mg PO Daily. Management per the GI team. (12) GERD (gastroesophageal reflux disease) Current Visit: Yes Status: Acute Qualifiers: Esophagitis presence: esophagitis presence not specified Qualified Code(s) : K21.9 - Gastro-esophageal reflux disease without esophagitis - Subjective Interval history: Patient seen and examined. No acute events noted overnight. Patient states overall she feels a little bit better today. Reports dyspnea on exertion and a moist productive cough with yellow sputum. Denies any fevers or chills or rigors. Denies chest pain. Denies nausea or vomiting or diarrhea. Denies abdominal pain or urinary complaints. States her appetite a little bit better today. Denies any skin rashes or oral lesions. Back pain improved Status post EGD 06/12/18. Infect Dis PN-Objective Data - Labs CBC & Chem 7: 06/13/18 05:10 06/13/18 05:10 Labs: Laboratory Results - last 24 hr 06/12/18 06/12/18 06/13/18 12:37 19:45 05:10 WBC 23.7 H RBC 3.27 L Hgb 9.4 L Hct 30.1 L MCV 92.0 MCH 28.7 MCHC 31.2 L RDW 14.0 Plt Count 367 MPV 9.2 L Immature Gran % 3.6 Seg Neutrophils % 83.0 Lymphocytes % 7.7 Monocytes % 5.1 Eosinophils % 0.3 Basophils % 0.3 Neutrophils # 19.7 H Lymphocytes # 1.8 Monocytes # 1.2 Eosinophils # 0.1 Basophils # 0.1 Nucleated RBCs/100 WBC 0.1 H Heparin Anti-Xa, Unfract 0.02 L Sodium Potassium Chloride Carbon Dioxide BUN Creatinine Est GFR ( Amer) Est GFR (Non-Af Amer) BUN/Creatinine Ratio Glucose Calculated Osmolality Calcium Phosphorus Magnesium Vancomycin Trough 9 06/13/18 05:10 WBC RBC Hgb Hct MCV MCH MCHC RDW Plt Count MPV Immature Gran % Seg Neutrophils % Lymphocytes % Monocytes % Eosinophils % Basophils % Neutrophils # Lymphocytes # Monocytes # Eosinophils # Basophils # Nucleated RBCs/100 WBC Heparin Anti-Xa, Unfract Sodium 140 Potassium 3.7 Chloride 94 L Carbon Dioxide 43 H* BUN 10 Creatinine 0.27 L Est GFR ( Amer) > 60 Est GFR (Non-Af Amer) > 60 BUN/Creatinine Ratio 37 H Glucose 96 Calculated Osmolality 289 Calcium 8.6 Phosphorus 3.0 Magnesium 2.1 Vancomycin Trough Cultures: Cultures 06/10/18 19:45 Sputum Culture - Final Sputum Methicillin Resistant S.aureus 06/10/18 19:45 Legionella Antigen - Final Urine,Clean Catch Streptococcus pneumoniae Antigen (M - Final 06/10/18 14:00 Blood Culture - Preliminary Peripheral Venipuncture Culture is incubating and being continuously monitored for growth. Final report to follow. 06/10/18 14:10 Blood Culture - Preliminary Peripheral Venipuncture Culture is incubating and being continuously monitored for growth. Final report to follow. - Impressions Impressions Chest X-Ray 06/12/18 19:07 IMPRESSION: Appropriate right PICC placement. Stable bilateral multifocal nodular opacities, some of which demonstrate cavitation and concerning for atypical infectious process with other etiologies not excluded. D/ / Umesh Galeano / Umesh Galeano Interpreting Provider: Umesh Galeano Exam - Constitutional Vitals: Temp Pulse Resp BP Pulse Ox 97.9 F 98 16 124/69 98 06/13/18 07:31 06/13/18 07:31 06/13/18 07:31 06/13/18 07:31 06/13/18 07:31 General appearance: average body habitus, cooperative, no acute distress - Head Head exam: Present: atraumatic, normal inspection, normocephalic - Eye Eye exam: Present: EOMI, normal appearance, PERRL Pupils: Present: normal accommodation Additional comments: No subconjunctival hemorrhage noted. - ENT ENT exam: Present: mucous membranes moist - Neck Neck exam: Present: normal inspection - Respiratory Respiratory exam: Present: CTAB. Absent: rales, respiratory distress, rhonchi, wheezes - Cardiovascular Cardiovascular exam: Present: RRR, +S1, +S2 - GI/Abdominal GI/Abdominal exam: Present: normal bowel sounds, soft. Absent: distended, tenderness - Extremities Exam Extremities exam: Present: normal inspection. Absent: joint swelling, pedal edema, tenderness - Neurological Exam Neurological exam: Present: alert, oriented X3, no focal deficits - Psychiatric Psychiatric exam: Present: normal affect, normal mood - Skin Skin exam: Present: dry, intact, normal color, warm Additional comments: No endocarditis stigmata noted. Consult Discharge Plan - Plan Referrals: Aneta Leal MD [Primary Care Provider] - Prescriptions: Rivaroxaban [Xarelto] 20 mg PO DAILY 30 Days #30 tablet - Attending Attestation I examined this patient and my medical decision-making was reviewed with the Resident Physician. I agree with the documented findings, disposition and treatment plan as described except to the extent set forth below.
[2018-06-13] MEDS: Budesonide/Formoterol 160/4.5 1 PUFF INH IH SCH ×2 (09:53→23:25)
[2018-06-13] MEDS ORDERED: Fluconazole 100 MG TABLET PO ONE ×2 (10:57→17:30)
[2018-06-13] MEDS ORDERED: *HR* Rivaroxaban 10 MG TABLET PO SCH (17:00)
[2018-06-13] MEDS: *HR* Rivaroxaban 10 MG TABLET PO SCH (17:25)
[2018-06-14] MEDS: Ipratropium/Albuterol Neb 3 ML IH SCH ×4 (04:40→22:10)
[2018-06-14 05:33] LABS: Basophils % 0.1 %; Eosinophils # 0.1 K/mcL (0.0-0.6); Eosinophils % 0.5 %; Hematocrit 24.3 % (35.3-44.9); Immature Granulocytes % 2.5 % (0-4); Lymphocytes # 1.6 K/mcL (0.6-4.6); Lymphocytes % 7.8 %; Mean Corpuscular HGB Conc 30.9 g/dL (31.6-35.5); Mean Corpuscular Hemoglobin 29.6 pg (28.0-33.3); Mean Platelet Volume 9.2 fL (9.4-12.4); Monocytes # 0.9 K/mcL (0.0-1.3); Monocytes % 4.5 %; Platelet Count 284 K/mcL (140-400); Red Blood Count 2.53 M/mcL (3.82-4.97); Red Cell Distribution Width 14.2 % (11.5-14.5); Segmented Neutrophils % 84.6 %
[2018-06-14 05:44] LABS: Hemoglobin 7.5 g/dL (11.5-15.4)
--- NOTE | 2018-06-14 08:17 | Electrocardiograph Report ---
[place] [id number] Test Date: 2018-06-10 Pat Name: Rebekah Alvares Department: 109 Room: 2A26 Gender: F Utility Manager: : [id number] Requested By: Karie Grajeda Order Number: [id number] Reading MD: Chinmay Oro Measurements Intervals [place] Rate: 133 P: TN: 0 QRS: 61 QRSD: 87 T: 52 QT: 283 QTc: 361 Interpretive Statements ATRIAL FIBRILLATION WITH RAPID VENTRICULAR RESPONSE Electronically Signed On 06-14-2018 8:15:44 EDT by Chinmay Oro
[2018-06-14] MEDS: Fluconazole 100 MG TABLET PO SCH (08:25)
[2018-06-14] MEDS: predniSONE 20 MG TABLET PO SCH (08:26)
[2018-06-14] MEDS: Loratadine 10 MG TABLET PO SCH (08:26)
[2018-06-14] MEDS: Cholecalciferol (D-3) 1,000 UNIT TABLET PO SCH (08:27)
[2018-06-14] MEDS: Acetaminophen 325 MG TABLET PO PRN (09:41)
--- NOTE | 2018-06-14 09:44 | Internal Med Progress Note ---
Hospitalist Progress Note - Encounter Date of Encounter: 06/14/18 Time of Encounter: 09:42 - Subjective Interval History: Patient seen and examined at bedside. Patient no acute events overnight. She states that she has been feeling a little weak this morning. States that she continues to have productive cough but denies any hemoptysis. Informed her that she had a drop in her hemoglobin and she denies any melena or hematochezia or nausea. Patient states that her shortness of breath does not seem worse than her baseline. Informed her that we will hold her Xarelto for now and recheck hemoglobin. Also informed her that she will also need a transesophageal echocardiogram prior to discharge. Denies any chest pain, nausea, vomiting, diarrhea, headache, blurry vision. - Exam Vitals: Temp Pulse Resp BP Pulse Ox 98.3 F 116 16 134/78 87 06/14/18 08:18 06/14/18 08:18 06/14/18 08:18 06/14/18 08:18 06/14/18 08:18 Exam: Constitutional: No acute distress, Alert Psych: AAO x 3 HEENT: NCAT, EOMI Neck: supple Cardio: regular rhythm and mildly tachyardic, HR in low 90s during my evaluation; documented readings in 110s this am but RN reprorts that was when pt was moving around room Resp: Continues to have coarse breath sounds with improved wheezing and improved air movement Abd: soft, non tender/non distended, positive bowel sounds Extremities: trace edema lower extremities Neuro: no focal deficits appreciated - Assessment and Plan (1) Acute and chronic respiratory failure with hypoxia Current Visit: Yes Status: Acute Assessment and Plan: Patient has acute on chronic respiratory failure with hypoxia and hypercapnia -supplemental oxygen up to 5lpm this am -Likely secondary to severe multi focal MRSA pneumonia -Maintain pulse ox symmetry between 88-92% -Prednisone for AECOPD will continue -will recheck hemoglobin stat to rule out continued drop in hemoglobin/anemia as cause of increase in oxygen requirement -ID following (2) Bacteremia Current Visit: Yes Status: Acute Assessment and Plan: -Severe sepsis secondary to MRSA bactermia and Pneumonia -MRSA in blood culture on 06/05 likely 2/2 MRSA Pneumonia -repeat cultures neagative to date on 06/09 and 06/10 -Sputum with gram positive cocci presumtive staph species -TTE reviewed no vegitations -on vanco -ID following -picc placed, will need senior living abx -will need HARIS prior to discharge; ordered but problably would be on saturday or saturday (3) Sepsis Current Visit: Yes Status: Acute Assessment and Plan: Severe sepsis likely secondary to pneumonia with cardiac and respiratory end organ damage - sepsis resolved - CXR with cavitory lesion. 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 - f/u blood cultures repeat cx ngtd - ID following - sputum with staph aureus - leukocytosis continues to improve (4) Anemia Current Visit: Yes Status: Acute Assessment and Plan: -pt with drop in hemoglobin this am from 9.4 to 7.5 -on xarelto; will hold -denies any melana, hematuria, hematemasis, nausea, hematochezia or hemoptysis -reports feeling weak this am -stat cbc and will trend -dc xarelto for now -check coags -will order stool for occult blood -will monitor closely -will transfuse as needed -BP stable and HR unchanged from prior (5) Pneumonia Current Visit: Yes Status: Acute Assessment and Plan: as above (6) COPD (chronic obstructive pulmonary disease) Current Visit: Yes Status: Chronic Assessment and Plan: -Acute exacerbation of COPD - continue duonebs, symbicort and spiriva - continue prednisone 40mg for 5 days - good air movement today (7) Elevated troponin Current Visit: Yes Status: Acute Assessment and Plan: - likely from demand - downtrending - cardio signed off (8) Hypokalemia Current Visit: Yes Status: Resolved Assessment and Plan: - replaced - wnl now - monitor (9) New onset a-fib Current Visit: Yes Status: Acute Assessment and Plan: Patient with new onset A. fib with RVR -HR 80s-90s; now NSR -Chadsvasc of 2 -Discussed anticoagulation with patient and is agreeable; however with drop in hemoglobin today will dc xarelto for now -repeat cbc pending -continue lopressor (10) Dysphagia Current Visit: Yes Status: Acute Assessment and Plan: -pt reports dysphasia with solids - GI consulted - egd with likely candidia esophogitis - fluconazole for 10 days DVT Prophylaxis: on xarelto; will hold -resume SCDs - Summary of Assessment and Plan Summary of Assessment and Plan: Will need HARIS prior to discharge Workup for acute anemia today and progress - Time Spent with Patient Total time spent is greater than 50% in coordination of care (as documented) at patient's floor/unit and/or counseling patient: 25 - 35 minutes Plan of Care Discussed with: patient Internal Medicine: Result - Labs CBC & Chem 7: 06/14/18 04:00 06/13/18 05:10 Labs: Short CBC 06/14/18 Range/Units 04:00 WBC 20.1 H (4.3-11.1) K/mcL Hgb 7.5 L D (11.5-15.4) g/dL Hct 24.3 L (35.3-44.9) % Plt Count 284 (140-400) K/mcL Neutrophils # 17.0 H (1.6-8.9) K/mcL - ABG Interpretation ABG results: ABG ABG pH 7.31 pH Units (7.32-7.45) L 06/10/18 04:29 ABG pCO2 78 mmHg (35-45) H* 06/10/18 04:29 ABG pO2 125 mmHg (85-104) H 06/10/18 04:29 ABG O2 Saturation 98 % (95-98) 06/10/18 04:29 PT/INR, D-dimer PT 12.1 Seconds (9.4-12.1) 06/10/18 12:42 Consult Discharge Plan - Plan Referrals: Aneta Leal MD [Primary Care Provider] - Prescriptions: Rivaroxaban [Xarelto] 20 mg PO DAILY 30 Days #30 tablet Vancomycin/0.9 % Sod Chloride [Vanco 1.25 gm/250 ml-0.9% NaCl] 1.25 gm IV BID 34 Days #68 plast..bag (3) Sepsis Qualifiers: Sepsis type: methicillin resistant Staphylococcus aureus Qualified Code(s): A41.02 - Sepsis due to Methicillin resistant Staphylococcus aureus (4) Anemia Qualifiers: Anemia type: unspecified type Qualified Code(s): D64.9 - Anemia, unspecified (5) Pneumonia Qualifiers: Pneumonia type: due to methicillin-resistant Staphylococcus aureus (MRSA) Laterality: unspecified laterality Lung location: unspecified part of lung Qualified Code(s): J15.212 - Pneumonia due to Methicillin resistant Staphylococcus aureus (6) COPD (chronic obstructive pulmonary disease) Qualifiers: COPD type: COPD with acute exacerbation Qualified Code(s): J44.1 - Chronic obstructive pulmonary disease with (acute) exacerbation (10) Dysphagia Qualifiers: Dysphagia type: unspecified Qualified Code(s): R13.10 - Dysphagia, unspecified
[2018-06-14 10:05] LABS: Mean Platelet Volume 9.2 fL (9.4-12.4); Red Cell Distribution Width 14.2 % (11.5-14.5)
[2018-06-14 10:07] LABS: Hematocrit 30.6 % (35.3-44.9); Hemoglobin 9.4 g/dL (11.5-15.4); Mean Corpuscular HGB Conc 30.7 g/dL (31.6-35.5); Mean Corpuscular Hemoglobin 28.4 pg (28.0-33.3); Mean Corpuscular Volume 92.4 fL (83.0-100.0); Platelet Count 381 K/mcL (140-400); Red Blood Count 3.31 M/mcL (3.82-4.97)
[2018-06-14] MEDS: Budesonide/Formoterol 160/4.5 1 PUFF INH IH SCH ×2 (10:41→22:10)
[2018-06-14 10:47] LABS: INR 1.1; Prothrombin Time 12.8 Seconds (9.4-12.1)
[2018-06-14] MEDS: Metoprolol 100 MG TABLET PO SCH (19:56)
[2018-06-15] MEDS: Ipratropium/Albuterol Neb 3 ML IH SCH ×4 (03:50→23:20)
[2018-06-15 04:55] LABS: Basophils % 0.2 %; Eosinophils # 0.1 K/mcL (0.0-0.6); Eosinophils % 0.5 %; Hematocrit 29.2 % (35.3-44.9); Hemoglobin 8.9 g/dL (11.5-15.4); Immature Granulocytes % 2.6 % (0-4); Lymphocytes # 2.1 K/mcL (0.6-4.6); Lymphocytes % 10.2 %; Mean Corpuscular HGB Conc 30.5 g/dL (31.6-35.5); Mean Corpuscular Hemoglobin 28.2 pg (28.0-33.3); Mean Corpuscular Volume 92.4 fL (83.0-100.0); Mean Platelet Volume 9.1 fL (9.4-12.4); Monocytes # 1.1 K/mcL (0.0-1.3); Monocytes % 5.4 %; Neutrophils # 16.6 K/mcL (1.6-8.9); Platelet Count 377 K/mcL (140-400); Red Blood Count 3.16 M/mcL (3.82-4.97); Red Cell Distribution Width 14.3 % (11.5-14.5); Segmented Neutrophils % 81.1 %
[2018-06-15 05:10] LABS: BUN/Creatinine Ratio 46 (6-26); Blood Urea Nitrogen 11 mg/dL (8-23); Calcium 8.2 mg/dL (8.6-10.3); Carbon Dioxide 45 mEq/L (23-29); Chloride 94 mEq/L (98-107); Glucose 102 mg/dL (70-105); Magnesium 2.1 mg/dL (1.6-2.6); Osmolality,Calculated 290 (280-300); Phosphorous 3.2 mg/dL (2.7-4.5); Potassium 3.9 mEq/L (3.5-5.1); Sodium 140 mEq/L (136-145); eGFR For Non-African Americans > 60 (> 60)
[2018-06-15] MEDS: Fluconazole 100 MG TABLET PO SCH (08:30)
[2018-06-15] MEDS: Cholecalciferol (D-3) 1,000 UNIT TABLET PO SCH (08:30)
[2018-06-15] MEDS: Metoprolol 100 MG TABLET PO SCH ×2 (08:30→20:05)
[2018-06-15] MEDS: predniSONE 20 MG TABLET PO SCH (08:30)
[2018-06-15] MEDS: Loratadine 10 MG TABLET PO SCH (08:30)
--- NOTE | 2018-06-15 08:50 | Internal Med Progress Note ---
Hospitalist Progress Note - Encounter Date of Encounter: 06/15/18 Time of Encounter: 08:47 - Subjective Interval History: Patient seen and examined at bedside. Patient no acute events overnight. Patient states she feels better today than yesterday. Patient states that her shortness of breath is similar to prior and continues to have productive cough. Patient has been afebrile. Patient denies any signs of bleeding, including melena, hematochezia, hemoptysis. Yesterday's reported low hemoglobin was likely an error as repeat was similar to prior. Explained need for HARIS, and that she will be nothing by mouth at midnight tonight for hopeful HARIS tomorrow. Patient denies any chest pain, nausea, vomiting, diarrhea. Admits to continued generalized weakness. - Exam Vitals: Temp Pulse Resp BP Pulse Ox 98.3 F 85 16 122/55 91 06/15/18 07:19 06/15/18 07:19 06/15/18 07:19 06/15/18 07:19 06/15/18 07:19 Exam: Constitutional: No acute distress, Alert Psych: AAO x 3 HEENT: NCAT, EOMI Neck: supple Cardio: regular rhythm , heart rate better controlled in the 80s currently, no murmurs Resp: Coarse breath sounds with crackles in bases, adequate air exchange Abd: soft, non tender/non distended, positive bowel sounds Extremities: trace edema lower extremities Neuro: no focal deficits appreciated - Assessment and Plan (1) Acute and chronic respiratory failure with hypoxia Current Visit: Yes Status: Acute Assessment and Plan: Patient has acute on chronic respiratory failure with hypoxia and hypercapnia -supplemental oxygen back down to 2.5 L/m from 5 L per minute yesterday -Secondary to severe multi focal MRSA pneumonia and AECOPD -Maintain pulse ox symmetry between 88-92% -Prednisone for AECOPD will continue and start weaning -Conintue IV Vanco for 4-6 weeks -ID following (2) Bacteremia Current Visit: Yes Status: Acute Assessment and Plan: -Severe sepsis secondary to MRSA bactermia and Pneumonia -MRSA in blood culture on 06/05 likely 2/2 MRSA Pneumonia -repeat cultures neagative to date on 06/09 and 06/10 -Sputum with MRSA -TTE reviewed no vegitations -on vanco -ID following -picc placed, will need assisted abx -will need HARIS prior to discharge; ordered but probably would be on Saturday or Saturday; npo at midnight (3) Sepsis Current Visit: Yes Status: Acute Assessment and Plan: Severe sepsis likely secondary to pneumonia with cardiac and respiratory end organ damage - sepsis resolved - CXR with cavitory lesion. 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 will need assisted abx - f/u blood cultures repeat cx ngtd - ID following - sputum with MRSA - leukocytosis continues to improve (4) Anemia Current Visit: Yes Status: Acute Assessment and Plan: -pt with drop in hemoglobin yesterday from 9.4 to 7.5; however repeat was 9.4; 7.5 likely an error -hbg down to 8.9 this am; will continue to hold xarelto today and follow hgb and likely resume tomorrow; sub q heparin started in meantime -denies any melana, hematuria, hematemasis, nausea, hematochezia or hemoptysis -follow am cbc (5) Pneumonia Current Visit: Yes Status: Acute Assessment and Plan: as above (6) COPD (chronic obstructive pulmonary disease) Current Visit: Yes Status: Chronic Assessment and Plan: -Acute exacerbation of COPD - continue duonebs, symbicort and spiriva - continue prednisone; will wean - good air movement today (7) Elevated troponin Current Visit: Yes Status: Acute Assessment and Plan: - likely from demand - downtrending - cardio signed off (8) Hypokalemia Current Visit: Yes Status: Resolved Assessment and Plan: - replaced - wnl now - monitor (9) New onset a-fib Current Visit: Yes Status: Acute Assessment and Plan: Patient with new onset A. fib with RVR -HR 80s-90s; now NSR -Chadsvasc of 2 -Discussed anticoagulation with patient and is agreeable; however will hold xarelto additional day due to trending down hgb -repeat cbc in am; if stable likely resume tomorrow -continue lopressor 100 bid (10) Dysphagia Current Visit: Yes Status: Acute Assessment and Plan: -pt reports dysphasia with solids - GI evaluated - egd with likely candidia esophogitis - fluconazole for 10 days DVT Prophylaxis: hep sq - Summary of Assessment and Plan Summary of Assessment and Plan: Will need HARIS prior to discharge - Time Spent with Patient Total time spent is greater than 50% in coordination of care (as documented) at patient's floor/unit and/or counseling patient: 25 - 35 minutes Plan of Care Discussed with: patient Internal Medicine: Result - Labs CBC & Chem 7: 06/15/18 04:30 06/15/18 04:30 Labs: Short CBC 06/14/18 06/15/18 Range/Units 09:45 04:30 WBC 30.3 H* D 20.5 H (4.3-11.1) K/mcL Hgb 9.4 L D 8.9 L (11.5-15.4) g/dL Hct 30.6 L 29.2 L (35.3-44.9) % Plt Count 381 377 (140-400) K/mcL Neutrophils # 16.6 H (1.6-8.9) K/mcL BMP 06/15/18 04:30 Sodium 140 Potassium 3.9 Chloride 94 L Carbon Dioxide 45 H* BUN 11 Creatinine 0.24 L Glucose 102 Calcium 8.2 L - ABG Interpretation ABG results: ABG ABG pH 7.31 pH Units (7.32-7.45) L 06/10/18 04:29 ABG pCO2 78 mmHg (35-45) H* 06/10/18 04:29 ABG pO2 125 mmHg (85-104) H 06/10/18 04:29 ABG O2 Saturation 98 % (95-98) 06/10/18 04:29 PT/INR, D-dimer PT 12.8 Seconds (9.4-12.1) H 06/14/18 09:45 Consult Discharge Plan - Plan Referrals: Aneta Leal MD [Primary Care Provider] - Prescriptions: Rivaroxaban [Xarelto] 20 mg PO DAILY 30 Days #30 tablet Vancomycin/0.9 % Sod Chloride [Vanco 1.25 gm/250 ml-0.9% NaCl] 1.25 gm IV BID 34 Days #68 plast..bag (3) Sepsis Qualifiers: Sepsis type: methicillin resistant Staphylococcus aureus Qualified Code(s): A41.02 - Sepsis due to Methicillin resistant Staphylococcus aureus (4) Anemia Qualifiers: Anemia type: unspecified type Qualified Code(s): D64.9 - Anemia, unspecified (5) Pneumonia Qualifiers: Pneumonia type: due to methicillin-resistant Staphylococcus aureus (MRSA) Laterality: unspecified laterality Lung location: unspecified part of lung Qualified Code(s): J15.212 - Pneumonia due to Methicillin resistant Staphylococcus aureus (6) COPD (chronic obstructive pulmonary disease) Qualifiers: COPD type: COPD with acute exacerbation Qualified Code(s): J44.1 - Chronic obstructive pulmonary disease with (acute) exacerbation (10) Dysphagia Qualifiers: Dysphagia type: unspecified Qualified Code(s): R13.10 - Dysphagia, unspecified
[2018-06-15] MEDS: Budesonide/Formoterol 160/4.5 1 PUFF INH IH SCH ×2 (10:27→23:20)
[2018-06-15] MEDS: *HR* Heparin 5,000 UNIT/ML VIAL SQ SCH ×2 (14:09→20:54)
[2018-06-16] MEDS: Ipratropium/Albuterol Neb 3 ML IH SCH ×2 (03:59→11:03)
[2018-06-16 05:04] LABS: Basophils % 0.2 %; Eosinophils # 0.1 K/mcL (0.0-0.6); Eosinophils % 0.4 %; Hematocrit 31.1 % (35.3-44.9); Hemoglobin 9.4 g/dL (11.5-15.4); Immature Granulocytes % 2.2 % (0-4); Lymphocytes # 2.2 K/mcL (0.6-4.6); Lymphocytes % 11.2 %; Mean Corpuscular HGB Conc 30.2 g/dL (31.6-35.5); Mean Corpuscular Hemoglobin 28.5 pg (28.0-33.3); Mean Corpuscular Volume 94.2 fL (83.0-100.0); Mean Platelet Volume 9.5 fL (9.4-12.4); Monocytes % 5.1 %; Platelet Count 435 K/mcL (140-400); Red Cell Distribution Width 14.1 % (11.5-14.5); Segmented Neutrophils % 80.9 %
[2018-06-16 05:29] LABS: BUN/Creatinine Ratio 44 (6-26); Blood Urea Nitrogen 14 mg/dL (8-23); Calcium 8.6 mg/dL (8.6-10.3); Carbon Dioxide 45 mEq/L (23-29); Chloride 93 mEq/L (98-107); Glucose 101 mg/dL (70-105); Magnesium 2.1 mg/dL (1.6-2.6); Osmolality,Calculated 289 (280-300); Phosphorous 3.1 mg/dL (2.7-4.5); Potassium 3.9 mEq/L (3.5-5.1); Sodium 139 mEq/L (136-145); eGFR For Non-African Americans > 60 (> 60)
[2018-06-16] MEDS: *HR* Heparin 5,000 UNIT/ML VIAL SQ SCH (05:39)
[2018-06-16] MEDS ORDERED: Tetracaine/Benzocaine/Butamben 200MG/SPRAY (100SPY/BOT) MM ONE (07:28)
[2018-06-16] MEDS ORDERED: *HR* Midazolam HCl 2 MG/2 ML VIAL IVP PRN (07:28)
[2018-06-16] MEDS ORDERED: 0.9 % Sodium Chloride 500 ML IVC ONE (07:28)
[2018-06-16] MEDS ORDERED: Lidocaine Viscous Oral Soln 15 ML SOLUTION MM PRN (07:28)
[2018-06-16] MEDS ORDERED: *HR* FentaNYL (PF) 100 MCG/2 ML VIAL IVP PRN (07:28)
[2018-06-16] MEDS ORDERED: *HR* Midazolam HCl 5 MG/5 ML VIAL IVP ONE ×2 (07:59)
[2018-06-16] MEDS ORDERED: predniSONE 20 MG TABLET PO SCH (09:00)
[2018-06-16] MEDS: Metoprolol 100 MG TABLET PO SCH (10:39)
[2018-06-16] MEDS: Cholecalciferol (D-3) 1,000 UNIT TABLET PO SCH (10:39)
[2018-06-16] MEDS: Fluconazole 100 MG TABLET PO SCH (10:40)
[2018-06-16] MEDS: Loratadine 10 MG TABLET PO SCH (10:40)
[2018-06-16] MEDS: Budesonide/Formoterol 160/4.5 1 PUFF INH IH SCH (11:03)
--- NOTE | 2018-06-16 11:48 | Physician Discharge Referral ---
ExtendedCare Referral Info Transfer To: ecf Provider in Charge after Transfer: PCP Institutional Level of Care: Skilled (pt/nursing) - Diagnosis (1) Acute and chronic respiratory failure with hypoxia Status: Acute (2) Bacteremia Status: Acute (3) Sepsis Status: Acute (4) Anemia Status: Acute (5) Pneumonia Status: Acute (6) COPD (chronic obstructive pulmonary disease) Status: Chronic (7) Elevated troponin Status: Acute (8) Hypokalemia Status: Resolved (9) New onset a-fib Status: Acute (10) Dysphagia Status: Acute - Transfer Medications Prescriptions: Rivaroxaban [Xarelto] 20 mg PO DAILY 30 Days #30 tablet Vancomycin/0.9 % Sod Chloride [Vanco 1.25 gm/250 ml-0.9% NaCl] 1.25 gm IV BID 34 Days #68 plast..bag Home Medications: Albuterol Sulfate [Proair Respiclick] 2 puff IH 1-2XD PRN 10/24/15 [History] Fexofenadine/Pseudoephedrine [Lay-D 12 Hour Tablet] 1 each PO DAILY [History] Oxygen [Oxygen] 2 l IH DAILY 04/04/16 [History] Aspirin 325 mg PO DAILY 10/26/16 [History] Calcium Carbonate/Vitamin D3 [Calcium 500 + Vit D Caplet] 1 each PO BID [History] [place]-3/Dha/Epa/Fish Oil [Fish Oil 1,000 mg Softgel] 1,000 mg PO DAILY 10/26/16 [History] Tiotropium [place] [Spiriva] 1 cap PO DAILY 10/26/16 [History] Vitamin E 1,000 unit PO DAILY 10/26/16 [History] Levofloxacin [Levaquin] 750 mg PO DAILY #7 tablet 06/05/18 [Rx] Cetirizine HCl [Zyrtec] 10 mg PO DAILY 06/09/18 [History] Fluticasone/Salmeterol [Advair 500-50 Diskus] 1 puff IH BID 06/09/18 [History] Omeprazole [PriLOSEC] 20 mg PO DAILY 06/09/18 [History] Roflumilast [Daliresp] 500 mcg PO DAILY 06/09/18 [History] Simvastatin [Zocor] 10 mg PO QPM 06/09/18 [History] Rivaroxaban [Xarelto] 20 mg PO DAILY 30 Days #30 tablet 06/11/18 [Rx] Vancomycin/0.9 % Sod Chloride [Vanco 1.25 gm/250 ml-0.9% NaCl] 1.25 gm IV BID 34 Days #68 plast..bag 06/13/18 [Rx] Allergies/Adverse Reactions: 3 Allergy/AdvReac Type Severity Reaction Status Date / Time No Known Allergies Allergy Verified 10/26/16 11:04 - Respiratory Orders Smoking Cessation: Smoking cessation has been advised. For more information, call the [place] Tobacco Quit Line at 8-606-FUBDNOW. CERTIFICATION: I certify that the transfer of the above named patient to an Extended Care Facility is necessary for the continuing treatment of the diagnosis listed. The above information is true and accurate reflection of patient's current condition. Confidential - Redisclosure prohibited without a patient's written consent.
--- NOTE | 2018-06-16 11:58 | Discharge Summary ---
- NOTES TO OUTPATIENT PROVIDER Notes to Outpatient Provider: Please follow-up with patient in regards to her atrial fibrillation that she had during this hospitalization; likely precipitated by sepsis and had no further episodes however patient did not want to continue anticoagulation currently. Patient needs to follow-up with infectious disease in 2 weeks and in 4 weeks prior to discontinuation of antibiotics and will get repeat CT of Chest at that point. Recommend following CBC to ensure improvement of leukocytosis. Patient should also have weekly BMPs to monitor renal function with IV vancomycin use. Orders not resulted at time of discharge: Pending orders 06/13/18 10:04 Fungal Culture [MYC] Routine 06/17/18 10:00 Vancomycin,Trough Timed Date of Encounter: 06/16/18 Time of Encounter: 11:49 - Discharge Diagnosis (1) Acute and chronic respiratory failure with hypoxia Priority: Primary Status: Acute (2) Bacteremia Priority: Secondary Status: Acute (3) Sepsis Priority: Secondary Status: Acute Qualifiers: Sepsis type: methicillin resistant Staphylococcus aureus Qualified Code(s) : A41.02 - Sepsis due to Methicillin resistant Staphylococcus aureus (4) Anemia Priority: Secondary Status: Acute Qualifiers: Anemia type: unspecified type Qualified Code(s): D64.9 - Anemia, unspecified (5) Pneumonia Priority: Secondary Status: Acute Qualifiers: Pneumonia type: due to methicillin-resistant Staphylococcus aureus (MRSA) Laterality: unspecified laterality Lung location: unspecified part of lung Qualified Code(s): J15.212 - Pneumonia due to Methicillin resistant Staphylococcus aureus (6) COPD (chronic obstructive pulmonary disease) Priority: Secondary Status: Chronic Qualifiers: COPD type: COPD with acute exacerbation Qualified Code(s): J44.1 - Chronic obstructive pulmonary disease with (acute) exacerbation (7) Elevated troponin Priority: Secondary Status: Acute (8) Hypokalemia Priority: Secondary Status: Resolved (9) New onset a-fib Priority: Secondary Status: Acute (10) Dysphagia Priority: Secondary Status: Acute Qualifiers: Dysphagia type: unspecified Qualified Code(s): R13.10 - Dysphagia, unspecified Hospital course: Ms. Alvares is a 73 year old female who presented to the emergency department after being called back for positive blood cultures of MRSA. The patient initially presented with pneumonia and was sent home on antibiotics. When the patient arrived back to the emergency department the patient was noted to be hypoxic and septic. Patient had CT imaging which revealed cavitary lesions and sputum grew MRSA which is consistent with blood cultures. The patient's severe sepsis improved throughout her stay and repeat blood cultures were negative. Patient was seen by infectious disease who recommends long-term IV antibiotics which will be set up prior to discharge. The patient also complained of dysphagia and had EGD which revealed likely king esophagitis and was started on fluconazole for 10 days. Patient also had new onset A. fib during her hospitalization briefly likely precipitated by sepsis; heart rate was controlled and patient was initially started on xarelto. This was discontinued after a drop in hemoglobin that was likely an error as hemoglobin has been stable since then. Today after long discussion with patient she would like to hold off on resuming Xarelto until her current condition is improved and follow- up with her primary care provider to have another EKG to see if she is in afib. We will not prescribe Xarelto discharge. Patient was seen by cardiology. Patient underwent HARIS for evaluation of endocarditis secondary to MRSA bacteremia however this was negative. The patient was weaned down to her home oxygen level of 2-3 L/m. Patient stable condition for discharge and agreeable to discharge to [facility] for rehabilitation and ANSWERED ON 06/16/2018. PATIENT SHOULD FOLLOW UP WITH PRIMARY CARE PHYSICIAN WITHIN ONE WEEK. PATIENT SHOULD FOLLOW UP infectious disease in 2 weeks and in 4 weeks prior to discontinuation of antibiotics at that point the patient will receive a CT scan of the chest to evaluate MRSA pneumonia. Discharge discussed with: patient, nurse - Time Spent with Patient Total time spent providing and/or coordinating discharge services: Greater than 30 minutes - Discharge Medications Prescriptions: Fluconazole [Diflucan] 200 mg PO DAILY 4 Days #4 tablet Metoprolol [Lopressor] 50 mg PO BID 30 Days #60 tablet predniSONE [PredniSONE] 10 mg PO DAILY 2 Days #2 tablet Vancomycin/0.9 % Sod Chloride [Vanco 1.25 gm/250 ml-0.9% NaCl] 1.25 gm IV BID 21 Days #43 plast..bag Home Medications: Albuterol Sulfate [Proair Respiclick] 2 puff IH 1-2XD PRN 10/24/15 [History] Fexofenadine/Pseudoephedrine [Lay-D 12 Hour Tablet] 1 each PO DAILY [History] Oxygen 2 l IH DAILY 04/04/16 [History] Aspirin 325 mg PO DAILY 10/26/16 [History] Calcium Carbonate/Vitamin D3 [Calcium 500 + Vit D Caplet] 1 each PO BID [History] [place]-3/Dha/Epa/Fish Oil [Fish Oil 1,000 mg Softgel] 1,000 mg PO DAILY 10/26/16 [History] Tiotropium [place] [Spiriva] 1 cap PO DAILY 10/26/16 [History] Vitamin E 1,000 unit PO DAILY 10/26/16 [History] Levofloxacin [Levaquin] 750 mg PO DAILY #7 tablet 06/05/18 [Rx] Cetirizine HCl [Zyrtec] 10 mg PO DAILY 06/09/18 [History] Fluticasone/Salmeterol [Advair 500-50 Diskus] 1 puff IH BID 06/09/18 [History] Omeprazole [PriLOSEC] 20 mg PO DAILY 06/09/18 [History] Roflumilast [Daliresp] 500 mcg PO DAILY 06/09/18 [History] Simvastatin [Zocor] 10 mg PO QPM 06/09/18 [History] Fluconazole [Diflucan] 200 mg PO DAILY 4 Days #4 tablet 06/16/18 [Rx] Metoprolol [Lopressor] 50 mg PO BID 30 Days #60 tablet 06/16/18 [Rx] Vancomycin/0.9 % Sod Chloride [Vanco 1.25 gm/250 ml-0.9% NaCl] 1.25 gm IV BID 21 Days #43 plast..bag 06/16/18 [Rx] predniSONE [PredniSONE] 10 mg PO DAILY 2 Days #2 tablet 06/16/18 [Rx] Allergies/Adverse Reactions: 3 Allergy/AdvReac Type Severity Reaction Status Date / Time No Known Allergies Allergy Verified 10/26/16 11:04 Date of admission: 06/09/18 18:03 Primary care physician: Aneta Leal MD Consults: 06/10/18 11:54 Consult to Cardiology [CONS] Routine Comment: Consulting Provider: Cardiology [place] Reason for Consult: new onset afib, need for ischemic work up? Call Completed: No Consult to Infectious Diseases [CONS] Routine Consulting Provider: Infectious Disease [place] Reason for Consult: MRSA Bactermia with pna Call Completed: Yes 06/10/18 12:01 Consult to Gastroenterology [CONS] Routine Consulting Provider: Gastroenterology [place] Reason for Consult: dysphagia with gerd Call Completed: Yes 06/10/18 16:11 Consult to Pulmonology [CONS] Routine Consulting Provider: Pulm [facility] [place] Reason for Consult: cavitary lesions with MRSA bacteremia; possible need for bronch Call Completed: No 06/12/18 10:33 Consult to Invasive Line Access Team [CONS] Routine Reason for Consult: Picc Line Insertion Line Type: PICC 06/12/18 13:21 Consult to Occupational Therapy [CONS] Routine Comment: Evaluate, develop and implement POC Reason for Consult: PT MAY NEED ECF Does patient have active BEDREST order?: No Is patient medically & hemodynamically stable?: Yes Consult to Physical Therapy [CONS] Routine Comment: Evaluate, develop and implement POC Reason for Consult: PT MAY NEED ECF Does patient have active BEDREST order?: No Is patient medically & hemodynamically stable?: Yes 06/12/18 13:40 Consult to Case Management Coordinator [CONS] Routine Reason for SW Consult: need ecf for iv atb - Constitutional Vitals: Temp Pulse Resp BP Pulse Ox 98.3 F 63 18 90/49 93 06/16/18 11:43 06/16/18 11:43 06/16/18 11:43 06/16/18 11:43 06/16/18 11:43 General appearance: Present: mild distress, A&O X 3 Exam: Constitutional: No acute distress, Alert Psych: AAO x 3 HEENT: NCAT, EOMI Neck: supple Cardio: regular rhythm , heart rate controlled now in the 60s Resp: Coarse breath sounds with crackles in bases, adequate air exchange Abd: soft, non tender/non distended, positive bowel sounds Extremities: trace edema lower extremities Neuro: no focal deficits appreciated - Patient Status Disposition: Transfer SNF Condition: Fair Functional capacity at discharge: uses cane/walker Overall status at discharge: patient is progressing back to baseline - Discharge Instructions Follow Up With: Aneta Leal MD [Primary Care Provider] - - Diet and Activity Activity: as per physical therapy Diet: advance to your usual diet
--- NOTE | 2018-06-16 13:36 | Infectious Disease Progress No ---
Date of Encounter: 06/16/18 Time of Encounter: 10:00 - Assessment and Plan (1) Severe sepsis Status: Acute The patient had 2 sepsis criteria plus lactic acidosis on admission. Likely secondary to bacteremia and pneumonia. Clinically improved. White blood cell count is trending down. Tachycardia has resolved. She was afebrile overnight. Blood cultures obtained 06/09/18 is negative 1 set. Repeat blood cultures drawn 06/10/18 are negative 2 sets. (2) Bacteremia Status: Acute Causative organism: MRSA. Source: Unclear, possibly pneumonia. Blood cultures obtained set was positive. Repeat blood culture obtained set is negative. No endocarditis stigmata noted on exam. Complicated due to the presence of hardware in the right upper extremity. The patient has 2 minor modified [place] criteria. Repeat blood cultures 2 sets drawn 06/10/18 are negative. Check rheumatoid factor.--> Elevated at 18. TTE negative for vegetations. HARIS completed 06/16/18 negative. Continue vancomycin IV. Pharmacy to dose. Vanc trough approximately 15. Vanc trough 06/11/18 8. Duration of treatment depends on the clinical picture, likely 4-6 weeks, depending on the HARIS results. Monitor renal function and for drug toxicity and dose adjust antibiotics. PICC placed 06/12/18. government services professional to assist with discharge planning. Will need weekly CBC, BUN/Cr, and Vanc trough. Will need weekly PICC care per protocol. Follow up with ID 07/02/18 at 1440. (3) Cavitary lesion of lung Status: Acute Location: Right middle lung field. Etiology unclear: Septic emboli versus infectious versus malignancy versus other. Chest x-ray completed 06/09/18 showed a large cavitary infiltrate in the right midlung. No history of TB exposure. Pulmonology consulted. Not planning on bronching the patient at this point as they feel that the CT findings are most likely related to infection. Recommend treating infection and repeating imaging. Continue vancomycin IV. Pharmacy to dose. Goal trough approximately 15. Duration of treatment depends on the clinical picture. Monitor renal function and for drug toxicity and does adjust antibiotics. (4) Pneumonia Status: Acute Location: Bilateral. Causative organism: S. aureus, likely MRSA. CTA chest completed 06/05/18 showed airspace consolidation in the right lower lobe , likely related to pneumonia as well as a masslike consolidation in the right middle lobe, likely related to pneumonia. Chest x-ray completed 06/09/18 showed worsening bilateral lung infiltrates, concerning for multifocal pneumonia. Repeat CT of the chest completed 06/10/18 showed findings consistent with emphysema and bronchiectasis as well as bilateral multifocal peribronchial nodular masslike consolidation which has progressed in the left upper lobe consistent with an infectious etiology. The right middle lobe nodule identified on the prior exam has undergone cavitation. There is a stable complex masslike consolidation in the medial right middle lobe measuring 8.3 cm with complex internal air which may relate to combination of bronchiectasis and cavitation. Given the rapidity of the changes, the findings most likely represent an infectious etiology. Sputum culture is positive as above. Check strep pneumococcal and legionella urinary antigens.--> negative. The patient states that she does sometimes choke when she eats, so aspiration is also a possibility. Recommend speech therapy to evaluate. Continue vancomycin. Duration of treatment depends on the clinical picture. Monitor renal function and for drug toxicity and dose-adjust antibiotics. Qualifiers: Pneumonia type: due to methicillin-resistant Staphylococcus aureus (MRSA) Laterality: unspecified laterality Lung location: unspecified part of lung Qualified Code(s): J15.212 - Pneumonia due to Methicillin resistant Staphylococcus aureus (5) Acute and chronic respiratory failure with hypoxia Status: Acute Likely secondary to pneumonia and possible cavitary lung lesion. Was noted to be hypoxic with SPO2 of 66% on arrival to the emergency department. Required BiPAP for short period of time, but is currently on high flow nasal cannula. Refuses BIPAP. Continue management per the primary and pulmonary teams. (6) Elevated troponin Status: Acute Likely demand ischemia from sepsis. Continue to trend. Cardiology consulted and signed off. Further workup and management per the primary and cardiology teams. (7) Hypokalemia Status: Resolved Likely secondary to poor by mouth intake. Resolved. (8) New onset a-fib Status: Acute Likely secondary to sepsis. Cardiology consulted. (9) Dysphagia Status: Acute Etiology unclear. Recommend speech consult to assist for aspiration. GI consulted. Status post EGD 06/12/18. Noted to have large hiatal hernia, reflux esophagitis, and likely esophageal candidiasis. Pathology is pending. Further management per the GI team. Qualifiers: Dysphagia type: unspecified Qualified Code(s): R13.10 - Dysphagia, unspecified (10) COPD (chronic obstructive pulmonary disease) Status: Chronic Qualifiers: COPD type: COPD with acute exacerbation Qualified Code(s): J44.1 - Chronic obstructive pulmonary disease with (acute) exacerbation (11) Esophageal candidiasis Status: Acute Noted on EGD. Recommend loading dose of fluconazole 400mg PO x 1 followed by 14-21 days of fluconazole 200mg PO Daily. Management per the GI team. (12) GERD (gastroesophageal reflux disease) Status: Acute Qualifiers: Esophagitis presence: esophagitis presence not specified Qualified Code(s) : K21.9 - Gastro-esophageal reflux disease without esophagitis - Subjective Interval history: Patient seen and examined. Weekend notes reviewed. Status post HARIS this morning. No acute events noted overnight. Patient states overall she feels a little bit better today. Reports dyspnea on exertion and a moist productive cough with yellow/brown sputum. Denies any fevers or chills or rigors. Denies chest pain. Denies nausea or vomiting or diarrhea. Denies abdominal pain or urinary complaints. States her appetite a little bit better today. Denies any skin rashes or oral lesions. Back pain improved. Status post EGD 06/12/18. Infect Dis PN-Objective Data - Labs CBC & Chem 7: 06/16/18 04:30 06/16/18 04:30 Labs: Laboratory Results - last 24 hr 06/15/18 06/16/18 06/16/18 21:45 04:30 04:30 WBC 19.7 H RBC 3.30 L Hgb 9.4 L Hct 31.1 L MCV 94.2 MCH 28.5 MCHC 30.2 L RDW 14.1 Plt Count 435 H MPV 9.5 Immature Gran % 2.2 Seg Neutrophils % 80.9 Lymphocytes % 11.2 Monocytes % 5.1 Eosinophils % 0.4 Basophils % 0.2 Neutrophils # 16.0 H Lymphocytes # 2.2 Monocytes # 1.0 Eosinophils # 0.1 Basophils # 0.0 Sodium 139 Potassium 3.9 Chloride 93 L Carbon Dioxide 45 H* BUN 14 Creatinine 0.32 L Est GFR ( Amer) > 60 Est GFR (Non-Af Amer) > 60 BUN/Creatinine Ratio 44 H Glucose 101 Calculated Osmolality 289 Calcium 8.6 Phosphorus 3.1 Magnesium 2.1 Vancomycin Trough 16 H Cultures: Cultures 06/10/18 14:10 Blood Culture - Final Peripheral Venipuncture No growth. Final report. 06/10/18 14:00 Blood Culture - Final Peripheral Venipuncture No growth. Final report. 06/10/18 19:45 Sputum Culture - Final Sputum Methicillin Resistant S.aureus 06/10/18 19:45 Legionella Antigen - Final Urine,Clean Catch Streptococcus pneumoniae Antigen (M - Final Exam - Constitutional Vitals: Temp Pulse Resp BP Pulse Ox 98.3 F 63 18 90/49 93 06/16/18 11:43 06/16/18 11:43 06/16/18 11:43 06/16/18 11:43 06/16/18 11:43 General appearance: average body habitus, cooperative, no acute distress - Head Head exam: Present: atraumatic, normal inspection, normocephalic - Eye Eye exam: Present: EOMI, normal appearance, PERRL Pupils: Present: normal accommodation - ENT ENT exam: Present: mucous membranes moist - Neck Neck exam: Present: normal inspection - Respiratory Respiratory exam: Present: CTAB. Absent: rales, respiratory distress, rhonchi, wheezes - Cardiovascular Cardiovascular exam: Present: RRR, +S1, +S2 - GI/Abdominal GI/Abdominal exam: Present: normal bowel sounds, soft. Absent: distended, tenderness - Extremities Exam Extremities exam: Present: normal inspection. Absent: joint swelling, pedal edema, tenderness - Neurological Exam Neurological exam: Present: alert, oriented X3, no focal deficits - Psychiatric Psychiatric exam: Present: normal affect, normal mood - Skin Skin exam: Present: dry, intact, normal color, warm Consult Discharge Plan - Plan Referrals: Aneta Leal MD [Primary Care Provider] - ([facility] is going to [facility]) Chay Ruiz MD [Partnered Physician] - 07/02/18 2:40 pm Prescriptions: Fluconazole [Diflucan] 200 mg PO DAILY 4 Days #4 tablet Metoprolol [Lopressor] 50 mg PO BID 30 Days #60 tablet predniSONE [PredniSONE] 10 mg PO DAILY 2 Days #2 tablet Vancomycin/0.9 % Sod Chloride [Vanco 1.25 gm/250 ml-0.9% NaCl] 1.25 gm IV BID 21 Days #43 plast..bag - Attending Attestation I examined this patient and my medical decision-making was reviewed with the Resident Physician. I agree with the documented findings, disposition and treatment plan as described except to the extent set forth below.
[2018-06-16 14:29] VITALS: BP 126/79
[2018-06-16] MEDS ORDERED: *HR* Rivaroxaban 10 MG TABLET PO SCH (17:00)
== END 2018-06-16 15:18 | DRG 871 ==
LOC: 2ANU 12:08 → EMEROOARM 12:08 → 2ANU 16:46 → SUATTDRO 18:03
PROVIDERS: ADMIT Internal Medicine; ATTEND Internal Medicine